=== PATIENT | female | born 1965 | race African-American/Black ===

== ENCOUNTER 2016-08-15 18:03 | Emergency (ER) | payer OTHER ==
[2016-08-15] MEDS ORDERED: Ibuprofen TAB* 800 MG PO ONE (18:39)
[2016-08-15 20:05] LABS: Hematocrit 43 % (35-47); Hemoglobin 14.3 g/dl (12.0-16.0); Mean Corpuscular HGB Conc 33 g/dl (31-36); Mean Corpuscular Hemoglobin 31 pg (27-31); Mean Corpuscular Volume 92 fL (80-97); Mean Platelet Volume 10 um3 (7.4-10.4); Red Blood Count 4.69 10^6/ul (4.0-5.4); Red Cell Distribution Width 13 % (10.5-15); White Blood Count 6.6 10^3/ul (3.5-10.8)
[2016-08-15 20:09] LABS: BUN/Creatinine Ratio 15.1 (8-20); EGFR African American 81.4 (>60); EGFR Non-African American 63.3 (>60); Globulin 3.3 g/dL (2-4); Potassium 3.5 mmol/L (3.5-5.0); Total Bilirubin 0.3 mg/dL (0.2-1.0); Total Protein 7.3 g/dL (6.4-8.9)
[2016-08-15 20:54] VITALS: BP 146/88
--- NOTE | 2016-08-15 21:08 | ED ---
Magnus Up Adam, scribed for Mary Sotelo MD on 08/15/16 at 1836 . Lower Extremity - HPI Summary HPI Summary: Pt is a 51 year old female presenting with a painful contusion on her RLE. She states that she developed a painful "knot/bump" under her skin on her right lower leg last night. The skin is no longer elevated but the pt states that the pain increased dramatically today, waking her up from sleep. There is a circular contusion at the site of the pain. Pt states that she commonly has bruising on her legs. She is not on ASA or any other blood-thinners. - History of Current Complaint Chief Complaint: EDExtremityLower Stated Complaint: SWELLING AND BRUISING AROUND VEIN Time Seen by Provider: 08/15/16 18:21 Hx Obtained From: Patient Mechanism Of Injury: Unknown Onset of Pain: Prior to Arrival Onset/Duration: Still Present Severity Initially: Mild Severity Currently: Moderate Pain Intensity: 5 Pain Scale Used: 0-10 Numeric Timing: Constant Location: Is Discrete @ - Right leg Associated Signs And Symptoms: Positive: Swelling, Bruising Aggravating Factor(s): Nothing Alleviating Factor(s): Nothing Able to Bear Weight: Yes - Allergies/Home Medications Allergies/Adverse Reactions: Allergies Allergy/AdvReac Type Severity Reaction Status Date / Time Clarithromycin [From Biaxin] Allergy Intermediate Rash Verified 08/15/16 18:11 PMH/Surg Hx/FS Hx/Imm Hx Endocrine/Hematology History: Reports: Other Endocrine/Hematological Disorders - Hx Low potassium Denies: Hx Diabetes Cardiovascular History: Reports: Hx Hypertension Denies: Hx Pacemaker/ICD Respiratory History: Reports: Hx Asthma GI History: Reports: Hx Gastroesophageal Reflux Disease, Other GI Disorders - Hemorrhoids History: Reports: Other Problems/Disorders - Hx UTI Denies: Hx Renal Disease Musculoskeletal History: Reports: Other Musculoskeletal History - herniated disc in lower back & in neck Sensory History: Denies: Hx Hearing Aid Psychiatric History: Denies: Hx Panic Disorder - Surgical History Surgery Procedure, Year, and Place: HYSTERECTOMY, CSECTIONS - Immunization History Date of Tetanus Vaccine: UTD Date of Influenza Vaccine: 2013 Infectious Disease History: No Infectious Disease History: Reports: Hx of Known/Suspected MRSA Denies: Traveled Outside the [place] in Last 30 Days - Family History Known Family History: Positive: Cardiac Disease, Hypertension, Diabetes - Social History Occupation: Employed Full-time Lives: With Family - Children Alcohol Use: None Hx Substance Use: No Substance Use Type: Reports: None Hx Tobacco Use: Yes Smoking Status (MU): Former Smoker Review of Systems Negative: Fever Positive: Myalgia - Right leg Positive: Bruising - Right leg All Other Systems Reviewed And Are Negative: Yes Physical Exam Triage Information Reviewed: Yes Vital Signs On Initial Exam: Initial Vitals Temp Pulse Resp BP Pulse Ox 98.7 F 81 16 145/93 100 08/15/16 18:11 08/15/16 18:11 08/15/16 18:11 08/15/16 18:11 08/15/16 18:11 Vital Signs Reviewed: Yes Appearance: Positive: Well-Appearing, No Pain Distress Skin: Positive: Warm, Skin Color Reflects Adequate Perfusion, Dry, Other - RLE contusion Eyes: Positive: EOMI, VENU ENT: Positive: Pharynx normal, TMs normal Neck: Positive: Supple, Nontender Respiratory/Lung Sounds: Positive: Clear to Auscultation, Breath Sounds Present. Negative: Rales, Rhonchi, Wheezes Cardiovascular: Positive: RRR. Negative: Murmur, Rub Abdomen Description: Positive: Nontender, Soft. Negative: Distended, Guarding Bowel Sounds: Positive: Present Musculoskeletal: Positive: Strength/ROM Intact. Negative: Edema Left, Edema Right Neurological: Positive: Sensory/Motor Intact, Alert, Oriented to Person Place, Time, CN Intact II-III Psychiatric: Positive: Affect/Mood Appropriate Diagnostics - Vital Signs Vital Signs Temp Pulse Resp BP Pulse Ox 08/15/16 18:11 98.7 F 81 16 145/93 100 - Laboratory Lab Results: Lab Results 08/15/16 08/15/16 Range/Units 19:40 19:40 WBC 6.6 (3.5-10.8) 10^3/ul RBC 4.69 (4.0-5.4) 10^6/ul Hgb 14.3 (12.0-16.0) g/dl Hct 43 (35-47) % MCV 92 (80-97) fL MCH 31 (27-31) pg MCHC 33 (31-36) g/dl RDW 13 (10.5-15) % Plt Count 226 (150-450) 10^3/ul MPV 10 (7.4-10.4) um3 Neut % (Auto) 55.5 (38-83) % Lymph % (Auto) 33.6 (25-47) % [place] % (Auto) 6.2 (1-9) % Eos % (Auto) 3.5 (0-6) % Baso % (Auto) 1.2 (0-2) % Absolute Neuts (auto) 3.7 (1.5-7.7) 10^3/ul Absolute Lymphs (auto) 2.2 (1.0-4.8) 10^3/ul Absolute Monos (auto) 0.4 (0-0.8) 10^3/ul Absolute Eos (auto) 0.2 (0-0.6) 10^3/ul Absolute Basos (auto) 0.1 (0-0.2) 10^3/ul Absolute Nucleated RBC 0.04 10^3/ul Nucleated RBC % 0.6 Sodium 137 (133-145) mmol/L Potassium 3.5 (3.5-5.0) mmol/L Chloride 102 (101-111) mmol/L Carbon Dioxide 33 H (22-32) mmol/L Anion Gap 2 (2-11) mmol/L BUN 14 (6-24) mg/dL Creatinine 0.93 (0.51-0.95) mg/dL Est GFR ( Amer) 81.4 (>60) Est GFR (Non-Af Amer) 63.3 (>60) BUN/Creatinine Ratio 15.1 (8-20) Glucose 84 (70-100) mg/dL Calcium 10.0 (8.6-10.3) mg/dL Total Bilirubin 0.30 (0.2-1.0) mg/dL AST 17 (13-39) U/L ALT 8 (7-52) U/L Alkaline Phosphatase 66 (34-104) U/L Total Protein 7.3 (6.4-8.9) g/dL Albumin 4.0 (3.2-5.2) g/dL Globulin 3.3 (2-4) g/dL Albumin/Globulin Ratio 1.2 (1-3) Result Diagrams: 08/15/16 19:40 08/15/16 19:40 Lab Statement: Any lab studies that have been ordered have been reviewed, and results considered in the medical decision making process. Lower Extremity Course/Dx - Diagnoses Provider Diagnoses: Contusion Discharge - Discharge Plan Condition: Stable Disposition: HOME Patient Education Materials: Contusion in Adults (ED) Referrals: Kostas Baeza MD [Primary Care Provider] - Additional Instructions: Follow up with Dr. Baeza. The documentation as recorded by the jaidenibMagnus azul Adam accurately reflects the service I personally performed and the decisions made by me, Mary Sotelo MD.
== END 2016-08-15 20:41 | disposition home or self-care (01) ==
LOC: ED 18:03
DX: S80.11XA Contusion of right lower leg, initial encounter (principal); M79.604 Pain in right leg; Z87.891 Personal history of nicotine dependence; X58.XXXA Exposure to other specified factors, initial encounter; Y93.9 Activity, unspecified; Y92.9 Unspecified place or not applicable; Y99.9 Unspecified external cause status
CPT/HCPCS: 36415; 80053; 85025; 99282; A9270-GY

== ENCOUNTER 2016-08-28 09:07 | Emergency (ER) | payer OTHER ==
--- NOTE | 2016-08-28 10:04 | RAD ---
Indication: Chest pain. Single frontal view of the chest performed at 0950 hours was reviewed. Comparison is made with previous exam dated July 30, 2015. No mediastinal shift is noted. Heart is of normal size and configuration. Lung bronson appear clear. IMPRESSION: NO ACTIVE CARDIOPULMONARY DISEASE IS NOTED.
[2016-08-28 10:11] LABS: Hematocrit 41 % (35-47); Hemoglobin 13.5 g/dl (12.0-16.0); Mean Corpuscular HGB Conc 33 g/dl (31-36); Mean Corpuscular Hemoglobin 30 pg (27-31); Mean Corpuscular Volume 91 fL (80-97); Mean Platelet Volume 9 um3 (7.4-10.4); Red Blood Count 4.43 10^6/ul (4.0-5.4); Red Cell Distribution Width 13 % (10.5-15); White Blood Count 5.9 10^3/ul (3.5-10.8)
[2016-08-28 10:25] LABS: Albumin 3.8 g/dL (3.2-5.2); BUN/Creatinine Ratio 11.4 (8-20); Calcium 9.5 mg/dL (8.6-10.3); EGFR African American 86.8 (>60); EGFR Non-African American 67.5 (>60); Globulin 3.2 g/dL (2-4); Magnesium 1.9 mg/dL (1.9-2.7); Potassium 3.6 mmol/L (3.5-5.0); Total Bilirubin 0.5 mg/dL (0.2-1.0)
--- NOTE | 2016-08-28 10:47 | ED ---
HPI Chest Pain - HPI Summary HPI Summary: Patient presents after she had a moment of sharp pain in her left chest. The pain felt like a pin being inserted in her chest. It did not begin with exertion nor did it improve with rest. It is made worse by a deep breath. The pain does not radiate, she did not feel nauseous or sweaty. She did not get lightheaded or have vision changes. She recently got over an URI but has not had fever, chills, N/V/D. She has a history of muscle cramps and wonders if this is a cramp. - History of Current Complaint Chief Complaint: EDGeneral Time Seen by Provider: 08/28/16 09:14 Hx Obtained From: Patient Onset/Duration: Started Hours Ago Timing: Intermittent, Lasting Seconds Initial Severity: Moderate Current Severity: None Pain Intensity: 5 Chest Pain Location: Left Anterior Chest Pain Radiates: No Character: Other: - felt like a pin in her chest. Alleviating Factor(s): Spontaneous Resolution Associated Signs and Symptoms: Positive: Chest Pain - Allergy/Home Medications Allergies/Adverse Reactions: Allergies Allergy/AdvReac Type Severity Reaction Status Date / Time Clarithromycin [From Biaxin] Allergy Intermediate Rash Verified 08/15/16 18:11 PMH/Surg Hx/FS Hx/Imm Hx Endocrine/Hematology History: Reports: Other Endocrine/Hematological Disorders - Hx Low potassium Denies: Hx Diabetes Cardiovascular History: Reports: Hx Hypertension Denies: Hx Pacemaker/ICD Respiratory History: Reports: Hx Asthma GI History: Reports: Hx Gastroesophageal Reflux Disease, Other GI Disorders - Hemorrhoids History: Reports: Other Problems/Disorders - Hx UTI Denies: Hx Renal Disease Musculoskeletal History: Reports: Other Musculoskeletal History - herniated disc in lower back & in neck Sensory History: Denies: Hx Hearing Aid Psychiatric History: Denies: Hx Panic Disorder - Surgical History Surgery Procedure, Year, and Place: HYSTERECTOMY, CSECTIONS - Immunization History Date of Tetanus Vaccine: UTD Date of Influenza Vaccine: 2013 Infectious Disease History: Yes Infectious Disease History: Reports: Hx of Known/Suspected MRSA Denies: Traveled Outside the [place] in Last 30 Days - Family History Known Family History: Positive: Unknown, Cardiac Disease, Hypertension, Diabetes - Social History Occupation: Employed Part-time Lives: With Family Alcohol Use: None Hx Substance Use: No Substance Use Type: Reports: None Hx Tobacco Use: Yes Smoking Status (MU): Former Smoker Review of Systems Negative: Fever, Skin Diaphoresis Positive: Chest Pain - resolved Negative: Shortness Of Breath Negative: Vomiting, Nausea Negative: Myalgia Negative: Anxious All Other Systems Reviewed And Are Negative: Yes Physical Exam Triage Information Reviewed: Yes Vital Signs On Initial Exam: Initial Vitals Temp Pulse Resp BP Pulse Ox 98.1 F 80 15 134/89 100 08/28/16 09:10 08/28/16 09:10 08/28/16 09:10 08/28/16 09:10 08/28/16 09:10 Vital Signs Reviewed: Yes Appearance: Positive: Well-Appearing, No Pain Distress, Obese Skin: Positive: Warm, Skin Color Reflects Adequate Perfusion, Dry, Soft Head/Face: Positive: Normal Head/Face Inspection Eyes: Positive: EOMI, VENU, Conjunctiva Clear ENT: Positive: Hearing grossly normal Neck: Positive: Supple, Nontender, No Lymphadenopathy Respiratory/Lung Sounds: Positive: Clear to Auscultation, Breath Sounds Present Cardiovascular: Positive: RRR Abdomen Description: Positive: Nontender, Soft. Negative: CVA Tenderness (R), CVA Tenderness (L), Distended, Guarding Bowel Sounds: Positive: Present Musculoskeletal: Negative: Pain @ - no pain with chest palpation Neurological: Positive: Sensory/Motor Intact, Alert, Oriented to Person Place, Time, Normal Gait, Abnormal Gait Psychiatric: Positive: Affect/Mood Appropriate AVPU Assessment: Alert - [place] Coma Scale Coma Scale Total: 15 Diagnostics - Vital Signs Vital Signs Temp Pulse Resp BP Pulse Ox 08/28/16 10:00 65 12 133/95 100 08/28/16 09:33 71 13 98 08/28/16 09:32 141/92 08/28/16 09:10 98.1 F 80 15 134/89 100 - Laboratory Lab Results: Lab Results 08/28/16 08/28/16 08/28/16 Range/Units 09:55 09:55 09:55 WBC 5.9 (3.5-10.8) 10^3/ul RBC 4.43 (4.0-5.4) 10^6/ul Hgb 13.5 (12.0-16.0) g/dl Hct 41 (35-47) % MCV 91 (80-97) fL MCH 30 (27-31) pg MCHC 33 (31-36) g/dl RDW 13 (10.5-15) % Plt Count 238 (150-450) 10^3/ul MPV 9 (7.4-10.4) um3 Neut % (Auto) 57.2 (38-83) % Lymph % (Auto) 32.6 (25-47) % [place] % (Auto) 5.6 (1-9) % Eos % (Auto) 3.4 (0-6) % Baso % (Auto) 1.2 (0-2) % Absolute Neuts (auto) 3.4 (1.5-7.7) 10^3/ul Absolute Lymphs (auto) 1.9 (1.0-4.8) 10^3/ul Absolute Monos (auto) 0.3 (0-0.8) 10^3/ul Absolute Eos (auto) 0.2 (0-0.6) 10^3/ul Absolute Basos (auto) 0.1 (0-0.2) 10^3/ul Absolute Nucleated RBC 0.01 10^3/ul Nucleated RBC % 0.1 Sodium 137 (133-145) mmol/L Potassium 3.6 (3.5-5.0) mmol/L Chloride 103 (101-111) mmol/L Carbon Dioxide 30 (22-32) mmol/L Anion Gap 4 (2-11) mmol/L BUN 10 (6-24) mg/dL Creatinine 0.88 (0.51-0.95) mg/dL Est GFR ( Amer) 86.8 (>60) Est GFR (Non-Af Amer) 67.5 (>60) BUN/Creatinine Ratio 11.4 (8-20) Glucose 98 (70-100) mg/dL Lactic Acid 1.1 (0.5-2.0) mmol/L Calcium 9.5 (8.6-10.3) mg/dL Magnesium 1.9 (1.9-2.7) mg/dL Total Bilirubin 0.50 (0.2-1.0) mg/dL AST 12 L (13-39) U/L ALT 6 L (7-52) U/L Alkaline Phosphatase 61 (34-104) U/L Troponin I 0.00 (<0.04) ng/mL Total Protein 7.0 (6.4-8.9) g/dL Albumin 3.8 (3.2-5.2) g/dL Globulin 3.2 (2-4) g/dL Albumin/Globulin Ratio 1.2 (1-3) Result Diagrams: 08/28/16 09:55 08/28/16 09:55 Lab Statement: Any lab studies that have been ordered have been reviewed, and results considered in the medical decision making process. - EKG No standard instances Cardiac Rate: NL EKG Rhythm: Sinus Rhythm ST Segment: Normal Ectopy: None Chest Pain Course/Dx - Chest Pain Differential Diagnosis/HQI/PQRI: Acute GA, Angina, Aortic Aneurysm, Chest Wall, GI Disease, Lower Respiratory Infection, Pulmonary Edema, Pulmonary Embolism - Diagnoses Provider Diagnoses: Chest discomfort Discharge - Discharge Plan Condition: Stable Disposition: HOME Patient Education Materials: Noncardiac Chest Pain (ED) Referrals: Kostas Baeza MD [Primary Care Provider] - Additional Instructions: Please call your primary care provider for evaluation in 1-2 days. Return to the emergency department if symptoms worsen.
[2016-08-28 11:54] VITALS: BP 152/121
== END 2016-08-28 11:53 | disposition home or self-care (01) ==
LOC: ED 09:07
DX: R07.9 Chest pain, unspecified (principal); I10 Essential (primary) hypertension; J45.909 Unspecified asthma, uncomplicated; K21.9 Gastro-esophageal reflux disease without esophagitis; Z87.891 Personal history of nicotine dependence
CPT/HCPCS: 36415; 71010; 80053; 83605; 83735; 84484; 85025; 85379; 93005; 99283

== ENCOUNTER 2016-09-16 20:42 | Emergency (ER) | payer OTHER ==
--- NOTE | 2016-09-16 22:22 | ED ---
Skin Complaint - HPI Summary HPI Summary: 51F presents with lesion to her sacrum for a week. She states she believes that is is an ingrown hair. She states the area is very painful but she has not taken anything for her pain. She denies any drainage from the area. She denies any fevers or spreading redness. She denies any history of pilondial cyst. - History of Current Complaint Chief Complaint: EDGeneral Time Seen by Provider: 09/16/16 22:07 Stated Complaint: TAILBONE PAIN Pain Intensity: 10 - Allergy/Home Medications Allergies/Adverse Reactions: Allergies Allergy/AdvReac Type Severity Reaction Status Date / Time Clarithromycin [From Biaxin] Allergy Intermediate Rash Verified 08/15/16 18:11 PMH/Surg Hx/FS Hx/Imm Hx Endocrine/Hematology History: Reports: Other Endocrine/Hematological Disorders - Hx Low potassium Denies: Hx Diabetes Cardiovascular History: Reports: Hx Hypertension Denies: Hx Pacemaker/ICD Respiratory History: Reports: Hx Asthma GI History: Reports: Hx Gastroesophageal Reflux Disease, Other GI Disorders - Hemorrhoids History: Reports: Other Problems/Disorders - Hx UTI Denies: Hx Renal Disease Musculoskeletal History: Reports: Other Musculoskeletal History - herniated disc in lower back & in neck Sensory History: Denies: Hx Hearing Aid Psychiatric History: Denies: Hx Panic Disorder - Surgical History Surgery Procedure, Year, and Place: HYSTERECTOMY, CSECTIONS - Immunization History Date of Tetanus Vaccine: UTD Date of Influenza Vaccine: 2013 Infectious Disease History: No Infectious Disease History: Reports: Hx of Known/Suspected MRSA Denies: Traveled Outside the [place] in Last 30 Days - Family History Known Family History: Positive: Unknown, Cardiac Disease, Hypertension, Diabetes - Social History Alcohol Use: None Hx Substance Use: No Substance Use Type: Reports: None Hx Tobacco Use: Yes Smoking Status (MU): Former Smoker Review of Systems Negative: Fever Negative: Chest Pain Negative: Shortness Of Breath Positive: Other - pea size lesion on buttock All Other Systems Reviewed And Are Negative: Yes Physical Exam Triage Information Reviewed: Yes Vital Signs On Initial Exam: Initial Vitals Temp Pulse Resp BP Pulse Ox 97.6 F 94 16 134/90 99 09/16/16 20:44 09/16/16 20:44 09/16/16 20:44 09/16/16 20:44 09/16/16 20:44 Vital Signs Reviewed: Yes Appearance: Positive: Well-Appearing Skin: Positive: Warm, Dry, Other - small folliculitis of left buttock with no surrounding erythema noted, tender to folliculitis Head/Face: Positive: Normal Head/Face Inspection Eyes: Positive: Normal, Conjunctiva Clear Respiratory/Lung Sounds: Positive: Clear to Auscultation, Breath Sounds Present Cardiovascular: Positive: Normal, RRR - Roberto Coma Scale Coma Scale Total: 15 Diagnostics - Vital Signs Vital Signs Temp Pulse Resp BP Pulse Ox 09/16/16 20:44 97.6 F 94 16 134/90 99 - Laboratory Lab Statement: Any lab studies that have been ordered have been reviewed, and results considered in the medical decision making process. Course/Dx - Course Course Of Treatment: 51F presents with lesion of buttock for a week. denies history of pilondial cyst. states area is tender but has not taken anything for pain. denies any fever or spreading redness. on exam has one infected follicle with no surrounding erythema. told to use warm compresses on area and that does not need antibiotic as no surrounding cellulitis present. told to use doughnut pillow to avoid pressure on area and to take tyenlol for pain. patient understands and agrees with plan - Differential Diagnoses - Skin Complaint Differential Diagnoses: Abscess, Cellulitis, Other - folliculitis - Diagnoses Provider Diagnoses: Folliculitis Discharge - Discharge Plan Condition: Good Disposition: HOME Patient Education Materials: Folliculitis (ED) Referrals: Kostas Baeza MD [Primary Care Provider] - Additional Instructions: Use doughnut pillow to avoid pressure on area Place warm compresses on area Use Tylenol or ibuprofen every 6 hours for pain Return to ED if develop fevers, spreading redness, or any new or worsening symptoms
[2016-09-16 22:28] VITALS: BP 128/90
== END 2016-09-16 22:27 | disposition home or self-care (01) ==
LOC: ED 20:42
DX: L73.9 Follicular disorder, unspecified (principal); Z87.891 Personal history of nicotine dependence; Z88.1 Allergy status to other antibiotic agents
CPT/HCPCS: 99281

== ENCOUNTER 2016-09-18 20:23 | Emergency (ER) | payer OTHER ==
[2016-09-18] MEDS ORDERED: traMADol TAB* 50 MG PO ONE (22:52)
[2016-09-18] MEDS ORDERED: Cephalexin CAP* 500 MG PO ONE (22:52)
[2016-09-18 23:17] VITALS: BP 129/87
== END 2016-09-18 23:16 | disposition home or self-care (01) ==
LOC: ED 20:23
DX: K61.1 Rectal abscess (principal)
CPT/HCPCS: 99282; A9270-GY

== ENCOUNTER 2016-10-14 23:51 | Emergency (ER) | payer OTHER ==
[2016-10-15] MEDS ORDERED: NS 0.9% 1000 ML* 1,000 ML IV ONE (03:01)
[2016-10-15] MEDS ORDERED: Morphine INJ* 4 MG/ML 1 ML SYRINGE IV ONE (03:02)
[2016-10-15] MEDS ORDERED: Ondansetron INJ* 2 MG/ML VIAL IV ONE (03:03)
[2016-10-15 03:36] LABS: Hematocrit 41 % (35-47); Hemoglobin 13.6 g/dl (12.0-16.0); Mean Corpuscular HGB Conc 33 g/dl (31-36); Mean Corpuscular Hemoglobin 30 pg (27-31); Mean Corpuscular Volume 91 fL (80-97); Mean Platelet Volume 9 um3 (7.4-10.4); Red Blood Count 4.49 10^6/ul (4.0-5.4); Red Cell Distribution Width 14 % (10.5-15); White Blood Count 6.5 10^3/ul (3.5-10.8)
[2016-10-15 03:54] LABS: Albumin 3.8 g/dL (3.2-5.2); BUN/Creatinine Ratio 18.3 (8-20); Calcium 9.5 mg/dL (8.6-10.3); EGFR African American 94.1 (>60); EGFR Non-African American 73.2 (>60); Globulin 3.1 g/dL (2-4); Potassium 3.3 mmol/L (3.5-5.0); Total Bilirubin 0.5 mg/dL (0.2-1.0); Total Protein 6.9 g/dL (6.4-8.9)
[2016-10-15] MEDS ORDERED: Potassium Chlor TAB* 20 MEQ TAB.ER PO ONE (04:23)
[2016-10-15] MEDS ORDERED: Iohexol 300* (CONTRAST) 10 ML SDV IV ONE (04:45)
[2016-10-15 05:02] LABS: Urine Bilirubin Negative (Negative); Urine Glucose Negative (Negative); Urine Nitrite Negative (Negative)
--- NOTE | 2016-10-15 05:58 | ED ---
Magnus Up Adam, scribed for Jaime Howe on 10/15/16 at 0253 . Abdominal Pain/Female - HPI Summary HPI Summary: Pt is a 51 year old female presenting with LLQ abdominal pain. She states that she has been having the pain for 7 days and it has been growing worse. She has also been vomiting. She saw her PCP and is scheduled for a colonoscopy in 2 days but she came to the ED because she could no longer tolerate the pain. She denies fever, diarrhea, constipation, CP, SOB, and rash. She denies alcohol and tobacco use. EMR indicates that she is a former smoker. - History of Current Complaint Chief Complaint: EDAbdPain Stated Complaint: ABD PAIN Time Seen by Provider: 10/15/16 02:38 Hx Obtained From: Patient Onset/Duration: Gradual Onset, Lasting Days, Still Present Timing: Constant Severity Initially: Mild Severity Currently: Moderate Pain Intensity: 10 Pain Scale Used: 0-10 Numeric Location: Discrete At: LLQ Radiates: No Aggravating Factor(s): Nothing Alleviating Factor(s): Nothing Associated Signs and Symptoms: Positive: Vomiting. Negative: Fever, Chest Pain , Constipation, Diarrhea Allergies/Adverse Reactions: Allergies Allergy/AdvReac Type Severity Reaction Status Date / Time Clarithromycin [From Biaxin] Allergy Intermediate Rash Verified 08/15/16 18:11 PMH/Surg Hx/FS Hx/Imm Hx Endocrine/Hematology History: Reports: Other Endocrine/Hematological Disorders - Hx Low potassium Denies: Hx Diabetes Cardiovascular History: Reports: Hx Hypertension Denies: Hx Pacemaker/ICD Respiratory History: Reports: Hx Asthma GI History: Reports: Hx Gastroesophageal Reflux Disease, Other GI Disorders - Hemorrhoids History: Reports: Other Problems/Disorders - Hx UTI Denies: Hx Renal Disease Musculoskeletal History: Reports: Other Musculoskeletal History - herniated disc in lower back & in neck Sensory History: Denies: Hx Hearing Aid Psychiatric History: Denies: Hx Panic Disorder - Surgical History Surgery Procedure, Year, and Place: HYSTERECTOMY, CSECTIONS - Immunization History Date of Tetanus Vaccine: UTD Date of Influenza Vaccine: 2013 Infectious Disease History: No Infectious Disease History: Reports: Hx of Known/Suspected MRSA Denies: Traveled Outside the [place] in Last 30 Days - Family History Known Family History: Positive: Cardiac Disease, Hypertension, Diabetes - Social History Occupation: Employed Full-time Lives: Alone Alcohol Use: None Hx Substance Use: No Substance Use Type: Reports: None Hx Tobacco Use: Yes Smoking Status (MU): Former Smoker Review of Systems Negative: Fever Negative: Chest Pain Negative: Shortness Of Breath Positive: Abdominal Pain - LLQ, Vomiting. Negative: Diarrhea Negative: Rash All Other Systems Reviewed And Are Negative: Yes Physical Exam Triage Information Reviewed: Yes Vital Signs On Initial Exam: Initial Vitals Temp Pulse Resp BP Pulse Ox 97.2 F 71 18 130/94 100 10/15/16 00:14 10/15/16 00:14 10/15/16 00:14 10/15/16 00:14 10/15/16 00:14 Vital Signs Reviewed: Yes Appearance: Positive: Well-Appearing, No Pain Distress Skin: Positive: Warm, Skin Color Reflects Adequate Perfusion, Dry Head/Face: Positive: Normal Head/Face Inspection Eyes: Positive: EOMI, VENU ENT: Positive: Normal ENT inspection Neck: Positive: Supple, Nontender Respiratory/Lung Sounds: Positive: Clear to Auscultation, Breath Sounds Present Cardiovascular: Positive: RRR, Pulses are Symmetrical in both Upper and Lower Extremities Abdomen Description: Positive: Other: - Tenderness in the LLQ Bowel Sounds: Positive: Present Musculoskeletal: Positive: Normal, Strength/ROM Intact - Roberto Coma Scale Coma Scale Total: 15 Diagnostics - Vital Signs Vital Signs Temp Pulse Resp BP Pulse Ox 10/15/16 02:30 97 F 74 16 132/87 100 10/15/16 01:27 96.4 F 73 18 132/87 100 10/15/16 00:14 97.2 F 71 18 130/94 100 - Laboratory Result Diagrams: 10/15/16 03:26 10/15/16 03:26 Lab Statement: Any lab studies that have been ordered have been reviewed, and results considered in the medical decision making process. - CT A/P CT Interpretation Completed By: Radiologist - IMPRESSION: NO INFLAMMATORY PROCESS IDENTIFIED IN THE ABDOMEN OR PELVIS. NO ABDOMINAL MASS, ADENOPATHY OR COLLECTION SEEN. NO EXPLANATION SEEN FOR THIS PATIENT'S ABDOMINAL PAIN. Abdominal Pain Fem Course/Dx - Diagnoses Provider Diagnoses: Nonspecific abdominal pain Discharge - Discharge Plan Condition: Stable Disposition: HOME Patient Education Materials: Abdominal Pain (ED) Referrals: Kostas Baeza MD [Primary Care Provider] - Elton Go MD [Medical Doctor] - Additional Instructions: Follow up with Dr. Go (Surgery). The documentation as recorded by the jaidenibMagnus azul Adam accurately reflects the service I personally performed and the decisions made by , Jaime Howe.
[2016-10-15 06:01] VITALS: BP 116/80
--- NOTE | 2016-10-15 10:17 | RAD ---
Indication: Diverticulitis. Contrast: Administered 100.0 ml of OMNIPAQUE 300 mgi/ml CT of the abdomen and pelvis was performed after IV contrast administered. No oral contrast was given which limits evaluation. Coronal and sagittal reconstructed images were obtained. The lung bases demonstrate no pleural fluid, nodules or masses. Heart is of normal size without evidence of pericardial effusion. Liver is normal in size. Low density lesions in the right lobe measuring 7 mm, left lobe measuring 13 mm, inferior right lobe measuring 10 mm are present. These likely represent cysts or hemangiomas. Several of these low density lesions were identified on the prior CT dated April 12, 2010. Other small low density lesions are noted in the caudate lobe which are unchanged from prior exams. The gallbladder demonstrates no calcified gallstones, pericholecystic fluid wall thickening. The common duct is not dilated. The pancreas demonstrates no mass or pancreatic duct dilatation. The spleen is normal in size. No adrenal lesions are noted. The kidneys demonstrate symmetric nephrograms without hydronephrosis or focal masses. No retroperitoneal lymphadenopathy is noted. No aneurysmal dilatation of the abdominal aorta is noted. Inferior vena cava is unremarkable. No abnormal dilatation of small bowel is noted. The bony structures demonstrates degenerative disc disease at L5-S1. A large Schmorl's node is identified at the inferior endplate of L5. CT of the pelvis demonstrates no retroperitoneal or pelvic lymphadenopathy. Patient appears to be status post hysterectomy. Structures resembling ovaries are noted in the pelvis. Correlation with clinical history is suggested. Stool is present throughout. IMPRESSION: LOW DENSITY LESIONS IN THE LIVER WERE PROBABLY PRESENT ON PRIOR EXAM OF APRIL 12, [address]??STRUCTURES RESEMBLING THE OVARIES ARE NOTED. THE PATIENT IS STATUS POST HYSTERECTOMY.??NO MASSES OR FLUID COLLECTIONS ARE NOTED.??
== END 2016-10-15 06:00 | disposition home or self-care (01) ==
LOC: ED 23:51
DX: R10.32 Left lower quadrant pain (principal); Z87.891 Personal history of nicotine dependence; K57.92 Diverticulitis of intestine, part unspecified, without perforation or abscess without bleeding
CPT/HCPCS: 36415; 74177; 80053; 81003; 83690; 84702; 85025; 85610; 85730; 96360; 96374; 96375; 99283; J2270; J2405; Q9967

== ENCOUNTER 2016-11-29 18:05 | Emergency (ER) | payer OTHER ==
[2016-11-29] MEDS ORDERED: Ketorolac INJ* 60 MG/2 ML VIAL IM ONE (18:51)
[2016-11-29] MEDS ORDERED: Cyclobenzaprine TAB* 10 MG PO ONE (18:51)
[2016-11-29] MEDS ORDERED: oxyCODONE/Acetamin 5/325 MG* TAB PO ONE (18:51)
--- NOTE | 2016-11-29 18:52 | ED ---
Back Pain - HPI Summary HPI Summary: 51F presents with back pain today. She has pain across her entire lower back. She denies any injury to the area. She states she felt a pulling sensation. She denies any pain into her legs. She denies any numbness or tingling. She denies any loss of bowel or bladder or saddle anaesthesia. She took some ibuprofen for her pain. - History of Current Complaint Chief Complaint: EDBackInjuryPain Stated Complaint: BACK PAIN Time Seen by Provider: 11/29/16 18:26 Pain Intensity: 10 - Allergies/Home Medications Allergies/Adverse Reactions: Allergies Allergy/AdvReac Type Severity Reaction Status Date / Time Clarithromycin [From Biaxin] Allergy Intermediate Rash Verified 08/15/16 18:11 PMH/Surg Hx/FS Hx/Imm Hx Endocrine/Hematology History: Reports: Other Endocrine/Hematological Disorders - Hx Low potassium Denies: Hx Diabetes Cardiovascular History: Reports: Hx Hypertension Denies: Hx Pacemaker/ICD Respiratory History: Reports: Hx Asthma GI History: Reports: Hx Gastroesophageal Reflux Disease, Other GI Disorders - Hemorrhoids History: Reports: Other Problems/Disorders - Hx UTI Denies: Hx Dialysis, Hx Renal Disease Musculoskeletal History: Reports: Other Musculoskeletal History - herniated disc in lower back & in neck Sensory History: Denies: Hx Hearing Aid Psychiatric History: Denies: Hx Panic Disorder - Surgical History Surgery Procedure, Year, and Place: HYSTERECTOMY, CSECTIONS - Immunization History Date of Tetanus Vaccine: UTD Date of Influenza Vaccine: 2013 Infectious Disease History: No Infectious Disease History: Reports: Hx of Known/Suspected MRSA Denies: Traveled Outside the [place] in Last 30 Days - Family History Known Family History: Positive: Unknown, Cardiac Disease, Hypertension, Diabetes - Social History Alcohol Use: None Hx Substance Use: No Substance Use Type: Reports: None Hx Tobacco Use: Yes Smoking Status (MU): Former Smoker Review of Systems Negative: Fever Negative: Chest Pain Negative: Shortness Of Breath Positive: Myalgia - back pain All Other Systems Reviewed And Are Negative: Yes Physical Exam Triage Information Reviewed: Yes Vital Signs On Initial Exam: Initial Vitals Temp Pulse Resp BP Pulse Ox 97.7 F 81 15 136/81 100 11/29/16 18:07 11/29/16 18:07 11/29/16 18:07 11/29/16 18:07 06/07/17 18:07 Vital Signs Reviewed: Yes Appearance: Positive: Pain Distress Skin: Positive: Warm, Dry Head/Face: Positive: Normal Head/Face Inspection Eyes: Positive: Normal, Conjunctiva Clear Respiratory/Lung Sounds: Positive: Clear to Auscultation, Breath Sounds Present Cardiovascular: Positive: Normal, RRR Musculoskeletal: Positive: Limited @ - back due to pain, Other - neg SLR, tender across lower back, good pulses Diagnostics - Vital Signs Vital Signs Temp Pulse Resp BP Pulse Ox 11/29/16 18:07 97.7 F 75 16 136/81 100 - Laboratory Lab Statement: Any lab studies that have been ordered have been reviewed, and results considered in the medical decision making process. - Radiology spine Xray Interpretation: Positive (See Comments) - IMPRESSION: MODERATE DEGENERATIVE DISC DISEASE AT THE L5-S1 LEVEL DEMONSTRATING INTERVAL PROGRESSION. Radiology Interpretation Completed By: Radiologist Back Pain Course/Dx - Course Course Of Treatment: 51F presents with back pain today. denies any injury. no numbness or tingling. neg SLR. xray showed degerenative changes. discussed will treat with flexeril and prednisone. patient understands and agrees with plan - Diagnoses Differential Diagnosis/HQI/PQRI: Positive: Herniated Disc, Strain, Sprain Provider Diagnoses: Back pain Discharge - Discharge Plan Condition: Good Disposition: HOME Prescriptions: Cyclobenzaprine TAB* [Flexeril 10 MG TAB*] 10 mg PO TID PRN #9 tab PRN Reason: Pain Methylprednisolone [Medrol Dosepak 4 MG*] 4 mg PO .SEE NEELAM INSTRUCTION #1 packet Patient Education Materials: Back Pain (ED) Referrals: Kostas Baeza MD [Primary Care Provider] - Additional Instructions: Follow directions on package for Medrol pack Take muscle relaxers three times a day for 3 days, starting tomorrow Use ibuprofen or Tylenol for pain every 6 hours ice/heat area, move as much as possible Follow up with primary within 7 days Return to ED if unable to ambulate or develop any new or worsening symptoms
--- NOTE | 2016-11-29 19:26 | RAD ---
INDICATION: Back pain. COMPARISON: Comparison is made with a prior x-ray study of the lumbar spine from March 13, 2006. TECHNIQUE: 5 views of the lumbar spine were obtained including lateral, oblique, AP and a coned-down lateral view of the lumbar sacral junction. FINDINGS: The vertebra are in normal alignment. No fracture is seen. There is moderate degenerative disc disease at the L5-S1 level which has progressed from the prior study. IMPRESSION: MODERATE DEGENERATIVE DISC DISEASE AT THE L5-S1 LEVEL DEMONSTRATING INTERVAL PROGRESSION.
[2016-11-29 19:50] VITALS: BP 128/74
== END 2016-11-29 19:49 | disposition home or self-care (01) ==
LOC: ED 18:05
DX: M51.37 Other intervertebral disc degeneration, lumbosacral region (principal); M54.5 Low back pain; Z87.891 Personal history of nicotine dependence
CPT/HCPCS: 72110; 96372; 99282; A9270-GY; J1885

== ENCOUNTER 2016-12-09 22:50 | Emergency (ER) | payer OTHER ==
[2016-12-09] MEDS ORDERED: Aspirin Low Dose CHEW TAB* 81 MG PO ONE (23:44)
[2016-12-10 00:45] LABS: Hematocrit 41 % (35-47); Hemoglobin 13.7 g/dl (12.0-16.0); Mean Corpuscular HGB Conc 33 g/dl (31-36); Mean Corpuscular Hemoglobin 31 pg (27-31); Mean Corpuscular Volume 91 fL (80-97); Mean Platelet Volume 9 um3 (7.4-10.4); Red Blood Count 4.51 10^6/ul (4.0-5.4); Red Cell Distribution Width 14 % (10.5-15); White Blood Count 7.2 10^3/ul (3.5-10.8)
[2016-12-10 01:00] LABS: Albumin 3.9 g/dL (3.2-5.2); BUN/Creatinine Ratio 14.6 (8-20); Calcium 9.5 mg/dL (8.6-10.3); EGFR African American 85.7 (>60); EGFR Non-African American 66.6 (>60); Globulin 3.2 g/dL (2-4); Magnesium 1.9 mg/dL (1.9-2.7); Potassium 3.3 mmol/L (3.5-5.0); Total Bilirubin 0.5 mg/dL (0.2-1.0); Total Protein 7.1 g/dL (6.4-8.9)
[2016-12-10] MEDS ORDERED: Potassium Chlor TAB* 20 MEQ TAB.ER PO ONE (01:11)
--- NOTE | 2016-12-10 01:16 | ED ---
Marcial Up Aidan, scribed for Mary Sotelo MD on 12/10/16 at 0042 . HPI Chest Pain - HPI Summary HPI Summary: 51 y/o female presents to the ED with a complaint of acute, mild (3/10) episodes of muscle spasms. At 2300 tonight, she had a muscle spasm close to the chest that occurred after taking a deep breath. Since then, she has had 2 more spasms near the chest. Hx of frequent muscle spasms, however, she usually gets them in the lower back. No Hx or FHx of PE or DVT. She does have FHx of CVA before the age of 54. Positive Hx of HTN. - History of Current Complaint Chief Complaint: EDChestWallPain Time Seen by Provider: 12/09/16 23:44 Hx Obtained From: Patient Onset/Duration: Started Hours Ago - roughly 1 hour ago, Resolved Time of Onset: 23:00 Timing: Intermittent, Lasting Minutes Initial Severity: Mild Current Severity: Mild Pain Intensity: 3 Pain Scale Used: 0-10 Numeric Chest Pain Location: Discrete at: - left chest, however, she gets these spasms in other places too Chest Pain Radiates: No Chest Pain Radiates To:: Other - does not radiate Character: Other: - muscle spasm feeling Aggravating Factor(s): Other: - unknown Alleviating Factor(s): Other: - unknown Associated Signs and Symptoms: Positive: Negative Related History: Similar Episode/Dx as: - Hx of chronic muscle spasms that usually occur in the lower back - Risk Factors TAD Risk Factors: Hypertension AMI/ACS Risk Factors: Hypertension - Allergy/Home Medications Allergies/Adverse Reactions: Allergies Allergy/AdvReac Type Severity Reaction Status Date / Time Clarithromycin [From Biaxin] Allergy Intermediate Rash Verified 12/09/16 23:48 PMH/Surg Hx/FS Hx/Imm Hx Endocrine/Hematology History: Reports: Other Endocrine/Hematological Disorders - Hx Low potassium Denies: Hx Diabetes Cardiovascular History: Reports: Hx Hypertension Denies: Hx Pacemaker/ICD Respiratory History: Reports: Hx Asthma GI History: Reports: Hx Gastroesophageal Reflux Disease, Other GI Disorders - Hemorrhoids History: Reports: Other Problems/Disorders - Hx UTI Denies: Hx Dialysis, Hx Renal Disease Musculoskeletal History: Reports: Other Musculoskeletal History - herniated disc in lower back & in neck Sensory History: Denies: Hx Hearing Aid Psychiatric History: Denies: Hx Panic Disorder - Surgical History Surgery Procedure, Year, and Place: HYSTERECTOMY, CSECTIONS - Immunization History Date of Tetanus Vaccine: unk Date of Influenza Vaccine: unk Infectious Disease History: No Infectious Disease History: Reports: Hx of Known/Suspected MRSA Denies: Traveled Outside the [place] in Last 30 Days - Family History Known Family History: Positive: Cardiac Disease, Hypertension, Diabetes - Social History Occupation: Employed Full-time Lives: With Family Alcohol Use: Rare Hx Substance Use: No Substance Use Type: Reports: None Hx Tobacco Use: Yes Smoking Status (MU): Former Smoker Review of Systems Constitutional: Negative Eyes: Negative ENT: Negative Cardiovascular: Negative Respiratory: Negative Gastrointestinal: Negative Genitourinary: Negative Positive: Myalgia - muscle spasm in left chest. Negative: Arthralgia, Decreased ROM, Edema Skin: Negative Neurological: Negative Psychological: Normal All Other Systems Reviewed And Are Negative: Yes Physical Exam - Summary Physical Exam Summary: General: Well appearing, no pain distress Skin: Warm, Skin Color Reflects Adequate Perfusion, Dry Eyes: EOMI, VENU ENT: Pharynx normal, TMs normal Neck: Supple, nontender Respiratory: CTA, breath sounds present, no rhonchi, no wheezes, no rales Cardiovascular: RRR, no murmur, no rub, no gallop Abdomen: Soft, nontender, Non-distended, no guarding, no rebound Bowel: Present Musculoskeletal: DERICK, No edema Neuro: Sensory/motor intact, A&Ox3, CN intact 2-12 Psych: Affect/mood appropriate Triage Information Reviewed: Yes Vital Signs On Initial Exam: Initial Vitals Temp Pulse Resp BP Pulse Ox 98 F 82 20 147/95 100 12/09/16 22:51 12/09/16 22:51 12/09/16 22:51 12/09/16 22:51 12/09/16 22:51 Vital Signs Reviewed: Yes - Roberto Coma Scale Coma Scale Total: 15 Diagnostics - Vital Signs Vital Signs Temp Pulse Resp BP Pulse Ox 12/09/16 23:44 98.0 F 82 20 147/95 100 12/09/16 22:51 98 F 82 20 147/95 100 - Laboratory Lab Results: Lab Results 12/10/16 12/10/16 Range/Units 00:30 00:30 WBC 7.2 (3.5-10.8) 10^3/ul RBC 4.51 (4.0-5.4) 10^6/ul Hgb 13.7 (12.0-16.0) g/dl Hct 41 (35-47) % MCV 91 (80-97) fL MCH 31 (27-31) pg MCHC 33 (31-36) g/dl RDW 14 (10.5-15) % Plt Count 210 (150-450) 10^3/ul MPV 9 (7.4-10.4) um3 Neut % (Auto) 51.9 (38-83) % Lymph % (Auto) 33.5 (25-47) % [place] % (Auto) 9.6 H (1-9) % Eos % (Auto) 3.9 (0-6) % Baso % (Auto) 1.1 (0-2) % Absolute Neuts (auto) 3.7 (1.5-7.7) 10^3/ul Absolute Lymphs (auto) 2.4 (1.0-4.8) 10^3/ul Absolute Monos (auto) 0.7 (0-0.8) 10^3/ul Absolute Eos (auto) 0.3 (0-0.6) 10^3/ul Absolute Basos (auto) 0.1 (0-0.2) 10^3/ul Absolute Nucleated RBC 0 10^3/ul Nucleated RBC % 0.1 Sodium 138 (133-145) mmol/L Potassium 3.3 L (3.5-5.0) mmol/L Chloride 102 (101-111) mmol/L Carbon Dioxide 30 (22-32) mmol/L Anion Gap 6 (2-11) mmol/L BUN 13 (6-24) mg/dL Creatinine 0.89 (0.51-0.95) mg/dL Est GFR ( Amer) 85.7 (>60) Est GFR (Non-Af Amer) 66.6 (>60) BUN/Creatinine Ratio 14.6 (8-20) Glucose 81 (70-100) mg/dL Calcium 9.5 (8.6-10.3) mg/dL Magnesium 1.9 (1.9-2.7) mg/dL Total Bilirubin 0.50 (0.2-1.0) mg/dL AST 13 (13-39) U/L ALT 6 L (7-52) U/L Alkaline Phosphatase 67 (34-104) U/L Troponin I 0.00 (<0.04) ng/mL Total Protein 7.1 (6.4-8.9) g/dL Albumin 3.9 (3.2-5.2) g/dL Globulin 3.2 (2-4) g/dL Albumin/Globulin Ratio 1.2 (1-3) Result Diagrams: 12/10/16 00:30 12/10/16 00:30 Lab Statement: Any lab studies that have been ordered have been reviewed, and results considered in the medical decision making process. - Radiology No standard instances Xray Interpretation: No Acute Changes Radiology Interpretation Completed By: ED Physician - EKG EKG 0021 Cardiac Rate: NL - 74 BPM EKG Rhythm: Sinus Rhythm EKG Interpretation: NORMAL SINUS RHYTHM Chest Pain Course/Dx - Course Course Of Treatment: 51 yo female who describes frequent muscle spasms in different areas of her body with a muscle spasm that happened under left breast at 11pm tonight. She does have a family history of early cad, and htn, her ekg and trop are neg. the pain was short lasting and came twice and then went away. She did find that at the time she had a bit of a pleuritic component but she has no PE risk factors. It was discussed with pt that a heart attack could not be ruled out for 6 hours from onset of pain pt refused to stay, she does understand the risk of heart attack and feels she just wanted to get and ekg to make sure it looked ok since the spasm she had was close to the heart. - Diagnoses Provider Diagnoses: Chest pain Discharge - Discharge Plan Condition: Stable Disposition: HOME The documentation as recorded by the Marcial arenas Aidan accurately reflects the service I personally performed and the decisions made by me, Mary Sotelo MD.
[2016-12-10 01:37] VITALS: BP 131/81
--- NOTE | 2016-12-10 09:52 | RAD ---
INDICATION: Left-sided chest pain COMPARISON: Most recent comparison chest x-rays dated August 28, 2016 TECHNIQUE: Single AP portable view of the chest was obtained. FINDINGS: Image quality is compromised due to the relative inferiority of a portable chest x-ray. The heart and mediastinum exhibit normal size and contour. The lungs are grossly clear. There is no evidence of a large pleural effusion. Visualized bones are normal for the patient's age. IMPRESSION: No radiographic evidence for acute cardiopulmonary abnormality on this portable chest x-ray.
== END 2016-12-10 01:42 | disposition home or self-care (01) ==
LOC: ED 22:50
DX: R07.89 Other chest pain (principal); M62.838 Other muscle spasm; I10 Essential (primary) hypertension; J45.909 Unspecified asthma, uncomplicated; K21.9 Gastro-esophageal reflux disease without esophagitis; Z90.710 Acquired absence of both cervix and uterus; Z88.1 Allergy status to other antibiotic agents; Z87.891 Personal history of nicotine dependence
CPT/HCPCS: 36415; 71010; 80053; 83735; 84484; 85025; 93005; 99282; A9270-GY

== ENCOUNTER 2016-12-31 09:56 | Emergency (ER) | payer OTHER ==
[2016-12-31 11:50] VITALS: BP 126/74
--- NOTE | 2016-12-31 13:02 | ED ---
Upper Extremity Pain - HPI Summary HPI Summary: Patient presents with left arm pain x 1 day. 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 She holds the same position in the arms daily and notes to a similar issue in the right arm a few years ago. Ibuprofen without effect. 8/10 pain, constant and radiating. Denies other injuries. Hx of herniated disc. No trauma to the area. - History of Current Complaint Chief Complaint: EDExtremityUpper Stated Complaint: ARM NUMBNESS, BACK PAIN Time Seen by Provider: 12/31/16 11:33 Hx Obtained From: Patient Mechanism Of Injury: Unknown - overuse Timing: Lasting Days Severity Initially: Moderate Severity Currently: Moderate Pain Location: Shoulder, Forearm, Hand Character: Spasmodic, Stiffness Aggravating Factor(s): Lifting, Flexion, Internal/External Rotation Alleviating Factor(s): Nothing Associated Signs & Symptoms: Positive: Weakness, Numbness/Tingling Related History: Occupational Injury, Dominant Hand Right - Risk Factors Non-Orthopedic Risk Factor: Negative DVT Risk Factors: Negative Septic Arthritis Risk Factor: Negative Compartment Syndrome Risk Factors: Pain, Paresthesias - Allergies/Home Medications Allergies/Adverse Reactions: Allergies Allergy/AdvReac Type Severity Reaction Status Date / Time Clarithromycin [From Biaxin] Allergy Intermediate Rash Verified 12/09/16 23:48 PMH/Surg Hx/FS Hx/Imm Hx Previously Healthy: Yes Endocrine/Hematology History: Reports: Other Endocrine/Hematological Disorders - Hx Low potassium Denies: Hx Diabetes Cardiovascular History: Reports: Hx Hypertension Denies: Hx Pacemaker/ICD Respiratory History: Reports: Hx Asthma GI History: Reports: Hx Gastroesophageal Reflux Disease, Other GI Disorders - Hemorrhoids History: Reports: Other Problems/Disorders - Hx UTI Denies: Hx Dialysis, Hx Renal Disease Musculoskeletal History: Reports: Other Musculoskeletal History - herniated disc in lower back & in neck Sensory History: Denies: Hx Hearing Aid Psychiatric History: Denies: Hx Panic Disorder - Surgical History Surgery Procedure, Year, and Place: HYSTERECTOMY, CSECTIONS - Immunization History Date of Tetanus Vaccine: unk Date of Influenza Vaccine: unk Hx Pertussis Vaccination: No Immunizations Up to Date: Unable to Obtain/Confirm Infectious Disease History: Yes Infectious Disease History: Reports: Hx of Known/Suspected MRSA Denies: Traveled Outside the [place] in Last 30 Days - Family History Known Family History: Positive: Unknown, Cardiac Disease, Hypertension, Diabetes - Social History Occupation: Employed Full-time Lives: With Family Alcohol Use: Rare Hx Substance Use: No Substance Use Type: Reports: None Hx Tobacco Use: Yes Smoking Status (MU): Former Smoker Review of Systems Constitutional: Negative Eyes: Negative Cardiovascular: Negative Respiratory: Negative Positive: no symptoms reported, see HPI Positive: Arthralgia, Myalgia Skin: Negative Neurological: Negative Psychological: Normal All Other Systems Reviewed And Are Negative: Yes Physical Exam Triage Information Reviewed: Yes Vital Signs On Initial Exam: Initial Vitals Temp Pulse Resp BP Pulse Ox 97.3 F 70 16 145/91 100 12/31/16 09:57 12/31/16 09:57 12/31/16 09:57 12/31/16 09:57 12/31/16 09:57 Vital Signs Reviewed: Yes Appearance: Positive: Well-Appearing, Well-Nourished Skin: Positive: Warm, Skin Color Reflects Adequate Perfusion Neck: Positive: Tenderness @ - left side of neck on palpation Respiratory/Lung Sounds: Positive: Clear to Auscultation, Breath Sounds Present Cardiovascular: Positive: Normal, RRR Musculoskeletal: Positive: Limited @ - left shoulder abduction and adduction, Pain @ - left side of neck, shoulder on palpation Neurological: Positive: CN Intact II-III, Reflexes Intact, Speech Normal Psychiatric: Positive: Normal AVPU Assessment: Alert Diagnostics - Vital Signs Vital Signs Temp Pulse Resp BP Pulse Ox 12/31/16 11:49 98.3 F 79 18 126/74 12/31/16 10:01 97.3 F 70 16 145/91 99 12/31/16 09:57 97.3 F 70 16 145/91 100 - Laboratory Lab Statement: Any lab studies that have been ordered have been reviewed, and results considered in the medical decision making process. Course/Dx - Course Course Of Treatment: Patient presents with left shoulder abduction and adduction pain and numbness and tingling with "pinched" sensation in the left side of the neck. 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 Denies other pain. Flexeril and lidocaine patch given for rx. encouraged ibuprofen. - Diagnoses Differential Diagnosis/HQI/PQRI: Positive: Fracture (Open), Strain, Sprain Provider Diagnoses: Cervical radicular pain Discharge - Discharge Plan Condition: Stable Disposition: HOME Prescriptions: Cyclobenzaprine TAB* [Flexeril TAB*] 10 mg PO BID PRN #16 tab PRN Reason: Pain Lidocaine PATCH 5%* [Lidoderm 5% Patch*] 1 patch TRANSDERM DAILY #5 patch Patient Education Materials: Cervical Radiculopathy (ED) Referrals: Kostas Baeza MD [Primary Care Provider] - Additional Instructions: Ibuprofen 600mg three times daily Moist heat to the area several times per day Flexeril twice per day - do not drive with this medication Rest the arm as much as possible Massage therapy will help
== END 2016-12-31 11:49 | disposition home or self-care (01) ==
LOC: ED 09:56
DX: M54.12 Radiculopathy, cervical region (principal); I10 Essential (primary) hypertension; J45.909 Unspecified asthma, uncomplicated; K21.9 Gastro-esophageal reflux disease without esophagitis; Z88.1 Allergy status to other antibiotic agents; Z87.891 Personal history of nicotine dependence
CPT/HCPCS: 99282

== ENCOUNTER 2017-04-24 19:43 | Emergency (ER) | payer OTHER ==
[2017-04-24 20:04] VITALS: BP 132/92
[2017-04-24] MEDS ORDERED: Lidocaine 1%* 5 ML VIAL INJ ONE (21:20)
[2017-04-24] MEDS ORDERED: Lidocaine 1%* 5 ML VIAL ONE (21:31)
[2017-04-24] MEDS ORDERED: Sulfamethox/Trimethoprim DS 800/160* TAB PO ONE (21:43)
--- NOTE | 2017-04-24 21:43 | ED ---
Skin Complaint - HPI Summary HPI Summary: 51F presents with left ring finger swelling today. she states she got a manicure a couple days ago. She states she started to notice some pain in the area and then the swelling started to increase. She denies any injury. she denies any fever. She denies any history of MRSA. She is not diabetic. She is right handed. pain is 8/10. 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 - History of Current Complaint Chief Complaint: EDExtremityUpper Time Seen by Provider: 04/24/17 20:29 Stated Complaint: LT RING FINGER SWOLLEN Pain Intensity: 10 - Allergy/Home Medications Allergies/Adverse Reactions: Allergies Allergy/AdvReac Type Severity Reaction Status Date / Time Clarithromycin [From Biaxin] Allergy Intermediate Rash Verified 04/24/17 20:04 PMH/Surg Hx/FS Hx/Imm Hx Endocrine/Hematology History: Reports: Other Endocrine/Hematological Disorders - Hx Low potassium Denies: Hx Diabetes Cardiovascular History: Reports: Hx Hypertension Denies: Hx Pacemaker/ICD Respiratory History: Reports: Hx Asthma GI History: Reports: Hx Gastroesophageal Reflux Disease, Other GI Disorders - Hemorrhoids History: Reports: Other Problems/Disorders - Hx UTI Denies: Hx Dialysis, Hx Renal Disease Musculoskeletal History: Reports: Other Musculoskeletal History - herniated disc in lower back & in neck Psychiatric History: Denies: Hx Panic Disorder - Surgical History Surgery Procedure, Year, and Place: HYSTERECTOMY, CSECTIONS - Immunization History Date of Tetanus Vaccine: unknown Date of Influenza Vaccine: unk Infectious Disease History: No Infectious Disease History: Reports: Hx of Known/Suspected MRSA Denies: Traveled Outside the [place] in Last 30 Days - Family History Known Family History: Positive: Unknown, Cardiac Disease, Hypertension, Diabetes - Social History Alcohol Use: Rare Hx Substance Use: No Substance Use Type: Reports: None Hx Tobacco Use: Yes Smoking Status (MU): Former Smoker Review of Systems Negative: Fever Negative: Chest Pain Negative: Shortness Of Breath Positive: Edema - left ring finger All Other Systems Reviewed And Are Negative: Yes Physical Exam Triage Information Reviewed: Yes Vital Signs On Initial Exam: Initial Vitals Temp Pulse Resp BP Pulse Ox 98.0 F 90 18 132/92 98 04/24/17 19:59 04/24/17 19:59 04/24/17 19:59 04/24/17 19:59 04/24/17 19:59 Vital Signs Reviewed: Yes Appearance: Positive: Well-Appearing Skin: Positive: Warm, Dry, Other - erythema and edema near nailbed of left index finger Head/Face: Positive: Normal Head/Face Inspection Eyes: Positive: Normal, Conjunctiva Clear Respiratory/Lung Sounds: Positive: Clear to Auscultation, Breath Sounds Present Cardiovascular: Positive: Normal, RRR Musculoskeletal: Positive: Strength/ROM Intact - left hand, Other - good pulses , capillary refill<2 secs Neurological: Positive: Normal Psychiatric: Positive: Normal - [place] Coma Scale Coma Scale Total: 15 Procedures - Incision and Drainage Site: left index finger Anesthesia: Digital Instrument(s): Scalpel Diagnostics - Vital Signs Vital Signs Temp Pulse Resp BP Pulse Ox 04/24/17 19:59 98.0 F 90 18 132/92 98 - Laboratory Lab Statement: Any lab studies that have been ordered have been reviewed, and results considered in the medical decision making process. Course/Dx - Course Course Of Treatment: 51F presents with left ring finger swelling today. she states she got a manicure a couple days ago. She states she started to notice some pain in the area and then the swelling started to increase. She denies any injury. she denies any fever. She denies any history of MRSA. She is not diabetic. She is right handed. pain is 8/10. 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 performed I&D of parchonyia and got pus out. will place on bactrim. patient understand and agrees with plan. - Differential Diagnoses - Skin Complaint Differential Diagnoses: Abscess, Cellulitis, Contact Dermatitis, Other - paronychia - Diagnoses Provider Diagnoses: Paronychia of finger Discharge - Discharge Plan Condition: Good Disposition: HOME Prescriptions: Sulfamethox/Trimethoprim DS* [Bactrim DS 800/160 TAB*] 1 tab PO BID #19 tab Patient Education Materials: Paronychia (ED) Referrals: Kostas Baeza MD [Primary Care Provider] - Additional Instructions: Take antibiotic twice a day for 10 days, first dose given in ED Do warm soaks to area Take ibuprofen or Tylenol for pain every 6 hours Return to ED if develop fever, area of redness spreads, or any new or worsening symptoms
== END 2017-04-24 22:09 | disposition home or self-care (01) ==
LOC: ED 19:43
DX: L03.012 Cellulitis of left finger (principal); E87.6 Hypokalemia; I10 Essential (primary) hypertension; J45.909 Unspecified asthma, uncomplicated; K21.9 Gastro-esophageal reflux disease without esophagitis; Z90.710 Acquired absence of both cervix and uterus; Z87.891 Personal history of nicotine dependence
CPT/HCPCS: 10060; 99282; A9270-GY

== ENCOUNTER 2017-05-22 08:51 | Observation (INO) | payer OTHER ==
--- NOTE | 2017-05-22 09:43 | RAD ---
INDICATION: Chest tightness COMPARISON: Most recent comparison chest x-rays dated December 09, 2016 TECHNIQUE: PA and lateral views of the chest were obtained. FINDINGS: The heart and mediastinum are normal in size and contour. The lungs are grossly clear. There is no evidence of large pleural effusion. Visualized bones are normal for the patient's age. There is no radiographic evidence of free air beneath the diaphragm IMPRESSION: No radiographic evidence of acute cardiopulmonary disease.
[2017-05-22 09:48] LABS: Hematocrit 41 % (35-47); Hemoglobin 13.8 g/dl (12.0-16.0); Mean Corpuscular HGB Conc 33 g/dl (31-36); Mean Corpuscular Hemoglobin 31 pg (27-31); Mean Corpuscular Volume 92 fL (80-97); Mean Platelet Volume 9 um3 (7.4-10.4); Red Blood Count 4.48 10^6/ul (4.0-5.4); Red Cell Distribution Width 14 % (10.5-15); White Blood Count 6.5 10^3/ul (3.5-10.8)
[2017-05-22 09:56] LABS: Urine Bilirubin Negative (Negative); Urine Glucose Negative (Negative); Urine Nitrite Negative (Negative)
[2017-05-22 10:08] LABS: Albumin 4.1 g/dL (3.2-5.2); BUN/Creatinine Ratio 10.1 (8-20); Calcium 9.6 mg/dL (8.6-10.3); EGFR African American 98.3 (>60); EGFR Non-African American 76.4 (>60); Globulin 3.1 g/dL (2-4); Potassium 3.5 mmol/L (3.5-5.0); Total Bilirubin 0.5 mg/dL (0.2-1.0); Total Protein 7.2 g/dL (6.4-8.9)
[2017-05-22 10:55] LABS: T4 8.86 mcg/mL (6.09-12.23)
[2017-05-22 10:59] LABS: TSH (Thyroid Stimulating Horm) 1.82 mcIU/mL (0.34-5.60)
[2017-05-22] MEDS ORDERED: Aspirin Low Dose CHEW TAB* 81 MG PO ONE (12:39)
[2017-05-22] MEDS ORDERED: LORazepam TAB(*) 0.5 MG PO PRN (14:11)
[2017-05-22] MEDS ORDERED: Cyclobenzaprine TAB* 10 MG PO PRN (14:11)
[2017-05-22] MEDS ORDERED: Nitroglycerin TAB 0.4 MG* 0.4 MG TAB SL ONE (14:27)
[2017-05-22] MEDS: Omeprazole CAP* 20 MG PO SCH (16:36)
[2017-05-22] MEDS ORDERED: Triamterene/HCTZ 37.5-25 MG* CAP PO SCH ×2 (18:00→21:00)
--- NOTE | 2017-05-22 19:48 | HP ---
HISTORY AND PHYSICAL: DATE OF ADMISSION: 05/22/17 PRIMARY CARE PROVIDER: Dr. Baeza. CHIEF COMPLAINT: Palpitations, chest pressure, nausea. HISTORY OF PRESENT ILLNESS: Ms. Savi Abarca is a 51-year-old female, PMH of hypertension, chronic low back pain, GERD who presents with 2 days of intermittent heart palpitations, also with on and off sensations of chest pressure like a small child is sitting on her chest. There is also some associated pain in the right shoulder down through into the center of the chest and then to the left lower chest. She also has had her normal hot flashes making her wake up in drenched night sweats, but these are unchanged. Denies any shortness of breath. She is actually able to work out about 1 hour in the gym the day prior to admission and there was no exertional exacerbation of the chest pressure or palpitations. However, she felt herself unable to fall asleep for the majority of the night. She had an episode of nausea and vomiting 2 weeks ago and then return of the nausea 2 days ago, really pre-dating some of the palpitation symptoms. Due to the patient's chronic low back pain, she is unable to lie flat at night, so she does not know if she gets orthopneic or awakens with paroxysmal nocturnal dyspnea. Nothing else seems to exacerbate or alleviate the palpitations. She does report remote history approximately 5 years ago of a cardiac workup through [facility], which included echo- cardiogram, a Holter monitor and was started on metoprolol for which she thinks was ectopic beats and does not know any other specific diagnosis. She presents to the emergency room, had troponin initially negative, but bumped up to 0.34. Has been admitted for ACS rule out. No EKG changes. Family history of hypertension and diabetes, but no reported myocardial infarction or CHF history. She is a former smoker of 8 years' duration, quit 22 years ago. PAST MEDICAL HISTORY: 1. Hypertension. 2. Chronic low back pain. 3. GERD. MEDICATIONS: 1. Ibuprofen 800 mg p.o. q.8 hours p.r.n. for back pain. 2. Triamterene and hydrochlorothiazide 37.5-25 mg 1 capsule p.o. daily. 3. Omeprazole 40 mg p.o. daily. 4. Metoprolol succinate 50 mg p.o. daily. 5. Lisinopril 20 mg p.o. b.i.d. 6. Ativan 0.5 mg p.o. t.i.d. p.r.n. 7. Potassium chloride 30 mEq p.o. b.i.d. 8. Gabapentin 300 mg p.o. t.i.d. p.r.n. (has not used in 1 to 2 months). 9. Flexeril 10 mg p.o. q.h.s. p.r.n. (has not used in 1 to 2 months). ALLERGIES: CLARITHROMYCIN. FAMILY MEDICAL HISTORY: Dad with prostate cancer. Mother and father with hypertension, diabetes. Brother with stroke. Sister with aneurysm. 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 The patient's medical surrogate is her oldest son, Trish Gagnon. She is a full code. She denies alcohol or other drug use. REVIEW OF SYSTEMS: A complete 14-point review of systems is negative except as per HPI. The patient does attest to dry cough. PHYSICAL EXAMINATION GENERAL APPEARANCE: No acute distress, sitting in hospital bed. VITAL SIGNS: Blood pressure 157/97, satting 100% on room air, respiratory rate 17, pulse rate 90, temperature 97.1. HEENT: Normocephalic, atraumatic. Pupils are equally round and reactive to light. NECK: No cervical lymphadenopathy. Neck supple. PULMONARY: Clear to auscultation bilaterally with no wheezing, rales, or rhonchi. CARDIOVASCULAR: Regular rate and rhythm. No murmurs, rubs, or gallops. ABDOMEN: Soft, nontender, nondistended. Slightly obese. No peritoneal signs or guarding. No Vanegas's sign. EXTREMITIES: Warm, well perfused. No significant peripheral edema. NEUROLOGIC: Cranial nerves II through XII were grossly intact. Moving all extremities. SKIN: No rashes. DIAGNOSTIC STUDIES/LAB DATA: White count 6.5, hemoglobin 13.8, hematocrit 41, platelets 238,000. Sodium 136, potassium 3.5, chloride 101, carbon dioxide 29. BUN 8, creatinine 0.79. Troponin 0.34. BNP 70. TSH 1.82, T4 is 8.86. Glucose 94. Urinalysis: Specific gravity low at 1.001, otherwise negative. Hepatitis C antibody, nonreactive. Chest x-ray with no acute cardiopulmonary disease. EKG; poor R-wave progression, normal sinus rhythm, heart rate of 71, QTC 428, normal intervals, T-wave inversion in V1. No other ST elevations or depressions. ASSESSMENT/PLAN: The patient is a 51-year-old female with a past medical history of hypertension, gastroesophageal reflux disease, chronic back pain, presenting with palpitations, chest pressure with elevated troponin of 0.34. We will admit for acute coronary syndrome rule out, continue on telemetry monitoring, trend troponins, make n.p.o. for a possible stress test in the morning, try to obtain [facility] records and consider echocardiogram. For her high blood pressure, we will continue her metoprolol 50 mg daily and lisinopril 20 mg b.i.d. She is status post 324 mg aspirin in the emergency room and we will give 81 mg daily. We will get a lipid panel, consider starting statin as indicated. No evidence of impaired glucose tolerance or diabetes mellitus. We will consider A1c in the morning. She will eat a heart-healthy diet until midnight and she is a full code with medical surrogate as her son, Trish FortuneDenia. [id number]/[facility] #: [id number] [facility] HOSPITALMarisol
[2017-05-22] MEDS: Lisinopril TAB* 10 MG PO SCH (21:46)
[2017-05-22] MEDS: Gabapentin CAP(*) 300 MG PO SCH (21:47)
[2017-05-22] MEDS: Potassium Chlor TAB* 10 MEQ TAB.ER PO SCH (21:48)
[2017-05-23 05:29] LABS: HDL Cholesterol 37.5 mg/dL
[2017-05-23] MEDS: Lisinopril TAB* 10 MG PO SCH (08:01)
[2017-05-23] MEDS: Gabapentin CAP(*) 300 MG PO SCH (08:01)
[2017-05-23] MEDS: Omeprazole CAP* 20 MG PO SCH (08:01)
[2017-05-23] MEDS: Potassium Chlor TAB* 10 MEQ TAB.ER PO SCH (08:02)
[2017-05-23] MEDS ORDERED: Aspirin EC Low Dose* 81 MG TAB.EC PO SCH (09:00)
[2017-05-23] MEDS ORDERED: Metoprolol Succinate XL TAB* 50 MG PO SCH (09:00)
[2017-05-23] MEDS ORDERED: Fluticasone NASAL SPRAY 50MCG* 16 gm SPRAY BTL BOTH NARES SCH (09:00)
[2017-05-23] MEDS ORDERED: Regadenoson* 0.4 MG/5 ML SYRINGE ONE (09:14)
--- NOTE | 2017-05-23 11:38 | RAD ---
Edited for charges. Indication: Chest pain. Myocardial perfusion scan was performed utilizing 1 day protocol. Rest myocardial perfusion was performed after intravenous injection of 10.04 mCi of technetium 99 and tetrofosmin. Pharmacological stress was applied and 25.24 mCi of technetium 99m tetrofosmin was injected for the stress portion of the study. There is homogeneous distribution of the radiotracer throughout the left ventricle. There is no evidence of fixed or reversible perfusion defects. Normal left ventricular size is noted. The ejection fraction at stress is 68%. Evaluation of wall motion demonstrates no evidence of focal wall motion abnormality. IMPRESSION: No evidence of fixed or reversible perfusion defect is identified. ASSESSMENT: Low risk Based on imaging criteria from ACC/AHA 2002 Guideline Update for the Management of Patients With Chronic Stable Angina Table 23. Noninvasive Risk Stratification. MTDD
[2017-05-23 12:02] VITALS: BP 146/99
--- NOTE | 2017-05-24 03:42 | DS ---
CC: Dr. Baeza * DISCHARGE SUMMARY: DATE OF ADMISSION: 05/22/17 DATE OF DISCHARGE: 05/23/17 HISTORY: This 52-year-old woman was admitted the day before her birthday with palpitation, chest pressure, and nausea. She said that she was not under any particular stress. She said she has been having some mild discomfort for a couple of days. I think she normally lives a life of quite a bit of stress. 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 The patient was admitted to a telemetry unit first and third troponins were 0.0 , the second troponin was 0.34 almost certainly a lab error. EKG did not show any significant ST or T wave changes. Stress test with nuclear imaging showed normal ejection fraction, no wall motion abnormalities and no evidence of infarct or ischemia. The patient had no further symptoms in the hospital. FINAL DIAGNOSES: 1. Chest pressure, possibly stress related. 2. Hypertension. 3. Chronic back pain. 4. Gastroesophageal reflux disease. DISCHARGE MEDICATIONS: 1. Potassium chloride 30 mEq b.i.d. 2. Lisinopril 20 mg b.i.d. 3. Triamterene/hydrochlorothiazide 37.5/25 one daily. 4. Cyclobenzaprine 10 mg h.s. p.r.n. 5. Albuterol inhaler 2 puffs every 6 hours p.r.n. 6. Ondansetron ODT 4 mg every 8 hours p.r.n. 7. Omeprazole 40 mg daily. 8. Metoprolol succinate 50 mg daily. 9. Lorazepam 0.5 mg t.i.d. p.r.n. 10. Ibuprofen 800 mg every 8 hours p.r.n. 11. Fluticasone nasal spray 2 sprays both nares daily. 12. Gabapentin 300 mg t.i.d. [id number]/[facility] #: [id number] MTDD
== END 2017-05-23 13:39 | disposition home or self-care (01) ==
LOC: ED 08:51 → MEDTELE 13:52
PROVIDERS: ADMIT Internal Medicine; ATTEND Internal Medicine
DX: R07.9 Chest pain, unspecified (principal); I10 Essential (primary) hypertension; Z79.899 Other long term (current) drug therapy; K21.9 Gastro-esophageal reflux disease without esophagitis; Z88.1 Allergy status to other antibiotic agents; M54.5 Low back pain; G89.29 Other chronic pain; R94.31 Abnormal electrocardiogram [ECG] [EKG]
CPT/HCPCS: 36415; 71020; 78452; 80053; 80061; 81003; 82550; 82553; 83735; 83880; 84436; 84443; 84484; 85025; 86703; 86803; 87641; 93005; 93017; 99284; A9270-GY; A9502; G0378; J2785

== ENCOUNTER 2017-05-29 19:53 | Emergency (ER) | payer OTHER ==
--- NOTE | 2017-05-29 20:52 | ED ---
Upper Extremity Pain - HPI Summary HPI Summary: 52M presents with right arm pain for 2 days. She states she is unable to move her arm due to right shoulder pain. on exam she is moving her right arm. She denies any injury. She states she has been getting in and out of cars and may have pulled to hard on the door. She denies any numbness or tingling. She denies any weakness. She denies any decrease in sensation. She denies any previous trauma to the area. She has been using flexeril and ibuprofen without relief. - History of Current Complaint Chief Complaint: EDExtremityUpper Stated Complaint: UNABLE TO MOVE RT ARM Time Seen by Provider: 05/29/17 20:10 - Allergies/Home Medications Allergies/Adverse Reactions: Allergies Allergy/AdvReac Type Severity Reaction Status Date / Time Clarithromycin [From Biaxin] Allergy Intermediate Rash Verified 04/24/17 20:04 PMH/Surg Hx/FS Hx/Imm Hx Endocrine/Hematology History: Reports: Other Endocrine/Hematological Disorders - Hx Low potassium Denies: Hx Diabetes Cardiovascular History: Reports: Hx Angina - pressure, Hx Hypertension Denies: Hx Pacemaker/ICD Respiratory History: Reports: Hx Asthma GI History: Reports: Hx Gastroesophageal Reflux Disease, Other GI Disorders - Hemorrhoids History: Reports: Other Problems/Disorders - Hx UTI Denies: Hx Dialysis, Hx Renal Disease Musculoskeletal History: Reports: Other Musculoskeletal History - herniated disc in lower back & in neck Sensory History: Reports: Hx Contacts or Glasses Denies: Hx Hearing Aid Opthamlomology History: Reports: Hx Contacts or Glasses Psychiatric History: Denies: Hx Panic Disorder - Surgical History Surgery Procedure, Year, and Place: HYSTERECTOMY, CSECTIONS - Immunization History Date of Tetanus Vaccine: unknown Date of Influenza Vaccine: unk Immunizations Up to Date: Yes Infectious Disease History: No Infectious Disease History: Reports: Hx of Known/Suspected MRSA - per pt. Denies: Traveled Outside the [place] in Last 30 Days - Family History Known Family History: Positive: Unknown, Cardiac Disease, Hypertension, Diabetes - Social History Alcohol Use: Rare Hx Substance Use: No Substance Use Type: Reports: None Hx Tobacco Use: Yes Smoking Status (MU): Former Smoker Review of Systems Negative: Fever Negative: Chest Pain Negative: Shortness Of Breath Positive: Myalgia - right shoulder All Other Systems Reviewed And Are Negative: Yes Physical Exam Triage Information Reviewed: Yes Vital Signs On Initial Exam: Initial Vitals Temp Pulse Resp BP Pulse Ox 97.7 F 81 16 152/95 100 05/29/17 19:56 05/29/17 19:56 05/29/17 19:56 05/29/17 19:56 05/29/17 19:56 Vital Signs Reviewed: Yes Appearance: Positive: Well-Appearing Skin: Positive: Warm, Dry Head/Face: Positive: Normal Head/Face Inspection Eyes: Positive: Normal, Conjunctiva Clear Respiratory/Lung Sounds: Positive: Clear to Auscultation, Breath Sounds Present Cardiovascular: Positive: Normal, RRR Musculoskeletal: Positive: Limited @ - right shoulder, Other - tenderness over anterior right shoulder, neg yearsons, drop arm, pos campbell, good pulses, sensation grossly intact, capillary refill<2 secs Neurological: Positive: Normal - [place] Coma Scale Coma Scale Total: 15 Diagnostics - Vital Signs Vital Signs Temp Pulse Resp BP Pulse Ox 05/29/17 19:56 97.7 F 81 16 152/95 100 - Laboratory Lab Statement: Any lab studies that have been ordered have been reviewed, and results considered in the medical decision making process. - Radiology xray Xray Interpretation: Positive (See Comments) - IMPRESSION: AC joint arthritis without evidence of fracture. Radiology Interpretation Completed By: Radiologist Course/Dx - Course Course Of Treatment: 52M presents with right arm pain for 2 days. She states she is unable to move her arm due to right shoulder pain. on exam she is moving her right arm. She denies any injury. She states she has been getting in and out of cars and may have pulled to hard on the door. She denies any numbness or tingling. She denies any weakness. She denies any decrease in sensation. She denies any previous trauma to the area. She has been using flexeril and ibuprofen without relief. on exam neurovascular intact, neg yearson, drop arm. pos campbell. xray shows arthritis. will try lidocaine patches and naproxen instead of ibuprofen for pain. patient will follow up with primary. patient understand and agrees with plan. - Diagnoses Differential Diagnosis/HQI/PQRI: Positive: Fracture (Closed), Strain, Sprain Provider Diagnoses: Right shoulder pain Discharge - Discharge Plan Condition: Good Disposition: HOME Prescriptions: Lidocaine PATCH 5%* [Lidoderm 5% Patch*] 1 patch TRANSDERM DAILY #5 patch Naproxen TAB* [Naprosyn 375 mg TAB*] 375 mg PO BID PRN #20 tab PRN Reason: Pain Patient Education Materials: Shoulder Pain (ED) Referrals: Kostas Baeza MD [Primary Care Provider] - Steve Albrecht MD [Medical Doctor] - Additional Instructions: Take Tylenol every 6 hours use naproxen twice a day as needed for pain Use lidoderm patches on area twice a day Ice/heat Can rest for one day and then need to do range of motion activities for shoulder Follow up with ortho if no improvement Return to ED if develop any new or worsening symptoms
[2017-05-29] MEDS ORDERED: Lidocaine PATCH 5%* 1 PATCH TRANSDERM ONE (21:37)
--- NOTE | 2017-05-29 21:49 | RAD ---
Indication: Right shoulder injury and pain. 4 views of the right shoulder demonstrates AC joint arthritis. No fracture is noted. No other bone or joint abnormality is noted. IMPRESSION: AC joint arthritis without evidence of fracture.
[2017-05-29 22:06] VITALS: BP 149/92
== END 2017-05-29 22:06 | disposition home or self-care (01) ==
LOC: ED 19:53
DX: M25.511 Pain in right shoulder (principal); I10 Essential (primary) hypertension; J45.909 Unspecified asthma, uncomplicated; K21.9 Gastro-esophageal reflux disease without esophagitis
CPT/HCPCS: 99282; A9270-GY

== ENCOUNTER 2017-09-08 09:48 | Emergency (ER) | payer OTHER ==
[2017-09-08 11:44] LABS: ABS Basophils 0.1 10^3/ul (0-0.2); ABS Eosinophils 0.2 10^3/ul (0-0.6); ABS Lymphocytes 1.6 10^3/ul (1.0-4.8); ABS Monocytes 0.4 10^3/ul (0-0.8); ABS Neutrophils 3.3 10^3/ul (1.5-7.7); ABS Nucleated RBC 0 10^3/ul; Hematocrit 42 % (35-47); Hemoglobin 14.1 g/dl (12.0-16.0); Mean Corpuscular HGB Conc 34 g/dl (31-36); Mean Corpuscular Hemoglobin 31 pg (27-31); Mean Corpuscular Volume 92 fL (80-97); Mean Platelet Volume 10 um3 (7.4-10.4); Nucleated Red Blood Cells % 0.2; Platelet Count 223 10^3/ul (150-450); Red Blood Count 4.56 10^6/ul (4.0-5.4); Red Cell Distribution Width 14 % (10.5-15); White Blood Count 5.5 10^3/ul (3.5-10.8)
[2017-09-08 11:55] LABS: EGFR Non-African American 71.9 (>60)
[2017-09-08 12:45] LABS: Urine Appearance Clear; Urine Blood 1+ (Negative); Urine Color Straw; Urine Ketones Negative (Negative); Urine Protein Negative (Negative); Urine Specific Gravity 1.004 (1.010-1.030); Urine Urobilinogen Negative (Negative)
[2017-09-08 14:28] VITALS: BP 152/82
--- NOTE | 2017-09-09 19:42 | ED ---
Kalli Up Thomas, scribed for Ray España MD on 09/08/17 at 1125 . Hypertension - HPI Summary HPI Summary: The patient is a 52 year old female who presents to the emergency department because she woke up this morning and noted her blood pressure to be 200/105. In the emergency room, after she has taken her blood pressure medication, her blood pressure is 164/93 at triage. In the ED, she complains of left-sided headache. She notes some weight gain over the last week. The patient had some leg swelling yesterday at the end of the day, but this has since relieved. The patient denies shortness of breath in the emergency department, but the patient did wake up two nights ago with shortness of breath that was relieved by sitting up. At baseline, the patient sleeps on many pillows. - History of Current Complaint Chief Complaint: EDHypertension Stated Complaint: EVAL BP/HEADACHE Time Seen by Provider: 09/08/17 10:54 Hx Obtained From: Patient Onset/Duration: Started Hours Ago - onset this morning, Still Present Timing: Constant Reported Blood Pressure Prior To Arrival: 200/105 Alleviating Factor(s): Other - BP meds Associated Signs & Symptoms: Other: - elevated BP, ELDRIDGE, orthopnea, leg swelling - Allergies/Home Medications Allergies/Adverse Reactions: Allergies Allergy/AdvReac Type Severity Reaction Status Date / Time clarithromycin [From Biaxin] Allergy Rash Verified 09/08/17 09:56 PMH/Surg Hx/FS Hx/Imm Hx Endocrine/Hematology History: Reports: Other Endocrine/Hematological Disorders - Hx Low potassium Denies: Hx Diabetes Cardiovascular History: Reports: Hx Angina - pressure, Hx Hypertension Denies: Hx Pacemaker/ICD Respiratory History: Reports: Hx Asthma GI History: Reports: Hx Gastroesophageal Reflux Disease, Other GI Disorders - Hemorrhoids History: Reports: Other Problems/Disorders - Hx UTI Denies: Hx Dialysis, Hx Renal Disease Musculoskeletal History: Reports: Other Musculoskeletal History - herniated disc in lower back & in neck Sensory History: Reports: Hx Contacts or Glasses Denies: Hx Hearing Aid Opthamlomology History: Reports: Hx Contacts or Glasses Psychiatric History: Denies: Hx Panic Disorder - Surgical History Surgery Procedure, Year, and Place: HYSTERECTOMY, CSECTIONS - Immunization History Date of Tetanus Vaccine: unknown Date of Influenza Vaccine: unk Infectious Disease History: No Infectious Disease History: Reports: Hx of Known/Suspected MRSA - per pt. Denies: Traveled Outside the [place] in Last 30 Days - Family History Known Family History: Positive: Cardiac Disease, Hypertension, Diabetes - Social History Alcohol Use: Rare Hx Substance Use: No Substance Use Type: Reports: None Hx Tobacco Use: Yes Smoking Status (MU): Former Smoker Review of Systems Negative: Fever Positive: Shortness Of Breath - none in ED, but some SOB two days ago when sleeping Positive: Other - Leg swelling Positive: Headache All Other Systems Reviewed And Are Negative: Yes Physical Exam - Summary Physical Exam Summary: Appearance: The patient is well-nourished in no acute distress and in no acute pain. Skin: The skin is warm and dry and skin color reflects adequate perfusion. HEENT: ~The head is normocephalic and atraumatic. The pupils are equal and reactive. The conjunctivae are clear and without drainage. ~Nares are patent and without drainage. Mouth reveals moist mucous membranes and the throat is without erythema and exudate. The external ears are intact. The ear canals are patent and without drainage. The tympanic membranes are intact. Neck: the neck is supple with full range of motion and non-tender. There are no carotid bruits. ~There is no neck vein distension. Respiratory: Chest is non-tender. ~Lungs are clear to auscultation and breath sounds are symmetrical and equal. Cardiovascular: Heart is regular rate and rhythm. ~There is no murmur or rub auscultated. ~~There is no peripheral edema and pulses are symmetrical and equal. Abdomen: The abdomen is soft and non-tender. ~There are normal bowel sounds heard in all four quadrants and there is no organomegaly palpated. Musculoskeletal: There is no back tenderness noted. ~Extremities are non-tender with full range of motion. ~There is good capillary refill. There is no peripheral edema or calf tenderness elicited. Neurological: Patient is alert and oriented to person, place and time. ~The patient has symmetrical motor strength in all four extremities. ~Cranial nerves are grossly intact. Deep tendon reflexes are symmetrical and equal in all four extremities. Psychiatric: The patient has an appropriate affect and does not exhibit any anxiety or depression. Triage Information Reviewed: Yes Vital Signs On Initial Exam: Initial Vitals Temp Pulse Resp BP Pulse Ox 98.3 F 84 16 164/93 100 09/08/17 09:56 09/08/17 09:56 09/08/17 09:56 09/08/17 09:56 09/08/17 09:56 Vital Signs Reviewed: Yes Diagnostics - Vital Signs Vital Signs Temp Pulse Resp BP Pulse Ox 09/08/17 10:44 75 98 09/08/17 10:43 148/98 09/08/17 09:56 98.3 F 84 16 164/93 100 - Laboratory Lab Results: Lab Results 09/08/17 09/08/17 09/08/17 Range/Units 11:19 11:19 11:19 WBC 5.5 (3.5-10.8) 10^3/ul RBC 4.56 (4.0-5.4) 10^6/ul Hgb 14.1 (12.0-16.0) g/dl Hct 42 (35-47) % MCV 92 (80-97) fL MCH 31 (27-31) pg MCHC 34 (31-36) g/dl RDW 14 (10.5-15) % Plt Count 223 (150-450) 10^3/ul MPV 10 (7.4-10.4) um3 Neut % (Auto) 59.9 (38-83) % Lymph % (Auto) 29.0 (25-47) % [place] % (Auto) 7.0 (0-7) % Eos % (Auto) 3.0 (0-6) % Baso % (Auto) 1.1 (0-2) % Absolute Neuts (auto) 3.3 (1.5-7.7) 10^3/ul Absolute Lymphs (auto) 1.6 (1.0-4.8) 10^3/ul Absolute Monos (auto) 0.4 (0-0.8) 10^3/ul Absolute Eos (auto) 0.2 (0-0.6) 10^3/ul Absolute Basos (auto) 0.1 (0-0.2) 10^3/ul Absolute Nucleated RBC 0 10^3/ul Nucleated RBC % 0.2 Sodium 138 (133-145) mmol/L Potassium 3.6 (3.5-5.0) mmol/L Chloride 104 (101-111) mmol/L Carbon Dioxide 30 (22-32) mmol/L Anion Gap 4 (2-11) mmol/L BUN 13 (6-24) mg/dL Creatinine 0.83 (0.51-0.95) mg/dL Est GFR ( Amer) 92.5 (>60) Est GFR (Non-Af Amer) 71.9 (>60) BUN/Creatinine Ratio 15.7 (8-20) Glucose 92 (70-100) mg/dL Calcium 9.7 (8.6-10.3) mg/dL Total Bilirubin 0.40 (0.2-1.0) mg/dL AST 14 (13-39) U/L ALT 7 (7-52) U/L Alkaline Phosphatase 68 (34-104) U/L Troponin I 0.00 (<0.04) ng/mL B-Natriuretic Peptide 38 ( - 100) pg/mL Total Protein 7.1 (6.4-8.9) g/dL Albumin 3.9 (3.2-5.2) g/dL Globulin 3.2 (2-4) g/dL Albumin/Globulin Ratio 1.2 (1-3) TSH 0.81 (0.34-5.60) mcIU/mL Urine Color Urine Appearance Urine pH (5-9) Ur Specific [place] (1.010-1.030) Urine Protein (Negative) Urine Ketones (Negative) Urine Blood (Negative) Urine Nitrate (Negative) Urine Bilirubin (Negative) Urine Urobilinogen (Negative) Ur Leukocyte Esterase (Negative) Urine WBC (Auto) (Absent) Urine RBC (Auto) (Absent) Ur Squamous Epith Cells (Absent) Urine Bacteria (Absent) Urine Glucose (Negative) 09/08/17 Range/Units 12:02 WBC (3.5-10.8) 10^3/ul RBC (4.0-5.4) 10^6/ul Hgb (12.0-16.0) g/dl Hct (35-47) % MCV (80-97) fL MCH (27-31) pg MCHC (31-36) g/dl RDW (10.5-15) % Plt Count (150-450) 10^3/ul MPV (7.4-10.4) um3 Neut % (Auto) (38-83) % Lymph % (Auto) (25-47) % [place] % (Auto) (0-7) % Eos % (Auto) (0-6) % Baso % (Auto) (0-2) % Absolute Neuts (auto) (1.5-7.7) 10^3/ul Absolute Lymphs (auto) (1.0-4.8) 10^3/ul Absolute Monos (auto) (0-0.8) 10^3/ul Absolute Eos (auto) (0-0.6) 10^3/ul Absolute Basos (auto) (0-0.2) 10^3/ul Absolute Nucleated RBC 10^3/ul Nucleated RBC % Sodium (133-145) mmol/L Potassium (3.5-5.0) mmol/L Chloride (101-111) mmol/L Carbon Dioxide (22-32) mmol/L Anion Gap (2-11) mmol/L BUN (6-24) mg/dL Creatinine (0.51-0.95) mg/dL Est GFR ( Amer) (>60) Est GFR (Non-Af Amer) (>60) BUN/Creatinine Ratio (8-20) Glucose (70-100) mg/dL Calcium (8.6-10.3) mg/dL Total Bilirubin (0.2-1.0) mg/dL AST (13-39) U/L ALT (7-52) U/L Alkaline Phosphatase (34-104) U/L Troponin I (<0.04) ng/mL B-Natriuretic Peptide ( - 100) pg/mL Total Protein (6.4-8.9) g/dL Albumin (3.2-5.2) g/dL Globulin (2-4) g/dL Albumin/Globulin Ratio (1-3) TSH (0.34-5.60) mcIU/mL Urine Color Straw Urine Appearance Clear Urine pH 6.0 (5-9) Ur Specific [place] 1.004 L (1.010-1.030) Urine Protein Negative (Negative) Urine Ketones Negative (Negative) Urine Blood 1+ A (Negative) Urine Nitrate Negative (Negative) Urine Bilirubin Negative (Negative) Urine Urobilinogen Negative (Negative) Ur Leukocyte Esterase Negative (Negative) Urine WBC (Auto) Trace(0-5/hpf) (Absent) Urine RBC (Auto) Trace(0-2/hpf) (Absent) Ur Squamous Epith Cells Present A (Absent) Urine Bacteria 1+ A (Absent) Urine Glucose Negative (Negative) Result Diagrams: 09/08/17 11:19 09/08/17 11:19 Lab Statement: Any lab studies that have been ordered have been reviewed, and results considered in the medical decision making process. - EKG 11:52 Cardiac Rate: NL EKG Rhythm: Sinus Rhythm EKG Interpretation: Normal EKG Hypertension Course/Dx - Course Course Of Treatment: Ms. Abarca presented with the concern that her BP is running high. She was observed on the monitor and labs checked. Her BPs were indeed running high but not emergent and I recommended that she F/U with her PMD and track her BPs. - Diagnoses Provider Diagnoses: HTN (hypertension) Discharge - Discharge Plan Condition: Stable Disposition: HOME Patient Education Materials: Hypertension (ED) Referrals: Kostas Baeza MD [Primary Care Provider] - 3 Days Additional Instructions: Follow up with Dr. Bazea in 2-3 days. Return to the emergency department for any new or worsening symptoms. The documentation as recorded by the Kalli arenas Thomas accurately reflects the service I personally performed and the decisions made by , Ray España MD.
== END 2017-09-08 14:31 | disposition home or self-care (01) ==
LOC: ED 09:48
DX: I10 Essential (primary) hypertension (principal); R51 Headache; R60.0 Localized edema; R06.02 Shortness of breath; I20.9 Angina pectoris, unspecified; J45.909 Unspecified asthma, uncomplicated; K21.9 Gastro-esophageal reflux disease without esophagitis; Z87.440 Personal history of urinary (tract) infections; Z88.1 Allergy status to other antibiotic agents; Z87.891 Personal history of nicotine dependence
CPT/HCPCS: 36415; 80053; 81003; 81015; 83880; 84443; 84484; 85025; 87086; 93005; 99282

== ENCOUNTER 2017-09-10 20:02 | Emergency (ER) | payer OTHER ==
[2017-09-10] MEDS ORDERED: Pantoprazole IV* 40 MG IV ONE (20:53)
--- NOTE | 2017-09-10 21:10 | RAD ---
INDICATION: Short of breath COMPARISON: : 2016 TECHNIQUE: An AP portable view obtained at 2101 hours is submitted. FINDINGS: Bones/Soft Tissues: There are no acute bony findings. Cardiomediastinal: The cardiomediastinal silhouette is normal. Lungs: There are no infiltrates. Pleura: There are no pleural effusions. Other: None IMPRESSION: NO ACTIVE DISEASE.
[2017-09-10 21:28] LABS: ABS Basophils 0.1 10^3/ul (0-0.2); ABS Eosinophils 0.2 10^3/ul (0-0.6); ABS Lymphocytes 2.1 10^3/ul (1.0-4.8); ABS Monocytes 0.4 10^3/ul (0-0.8); ABS Nucleated RBC 0 10^3/ul; Eosinophil % 3.5 % (0-6); Hematocrit 41 % (35-47); Hemoglobin 13.7 g/dl (12.0-16.0); Lymphocyte % 36.2 % (25-47); Mean Corpuscular HGB Conc 34 g/dl (31-36); Mean Corpuscular Hemoglobin 31 pg (27-31); Mean Corpuscular Volume 92 fL (80-97); Mean Platelet Volume 9 um3 (7.4-10.4); Nucleated Red Blood Cells % 0.1; Platelet Count 222 10^3/ul (150-450); Red Blood Count 4.44 10^6/ul (4.0-5.4); Red Cell Distribution Width 14 % (10.5-15); White Blood Count 5.8 10^3/ul (3.5-10.8)
[2017-09-10 21:37] LABS: INR 0.91 (0.77-1.02)
[2017-09-10] MEDS ORDERED: Potassium Chlor TAB* 20 MEQ TAB.ER PO ONE (22:04)
--- NOTE | 2017-09-10 22:22 | ED ---
Kalli Up Thomas, scribed for Gus Carmona MD on 09/10/17 at 2049 . HPI Chest Pain - HPI Summary HPI Summary: The patient is a 52 year old female complaining of a 15-minute episode of chest tightness that began today at 18:30. The pain was located in the middle of her chest and it radiated to her neck. She took two aspirins shortly after pain began. She also reports that I couldnt take a deep breath during the episode of chest pain. Her last stress test was 05/22/17 and she reports that it was negative. The patient was a patient at [facility] two days ago with elevated blood pressure. - History of Current Complaint Chief Complaint: EDChestPainROMI Time Seen by Provider: 09/10/17 20:17 Hx Obtained From: Patient Onset/Duration: Started Hours Ago, Resolved Time of Onset: 18:30 Timing: Lasting Minutes - 15 Initial Severity: Moderate Current Severity: None Pain Intensity: 0 Pain Scale Used: 0-10 Numeric Chest Pain Location: Discrete at: - middle of chest Chest Pain Radiates: Yes Chest Pain Radiates To:: Neck Character: Tightness Alleviating Factor(s): Other: - ASA Associated Signs and Symptoms: Positive: Chest Pain, Other: - Inability to take deep breath Related History: Obesity - Allergy/Home Medications Allergies/Adverse Reactions: Allergies Allergy/AdvReac Type Severity Reaction Status Date / Time clarithromycin [From Biaxin] Allergy Rash Verified 09/10/17 20:12 PMH/Surg Hx/FS Hx/Imm Hx Endocrine/Hematology History: Reports: Other Endocrine/Hematological Disorders - Hx Low potassium Denies: Hx Diabetes Cardiovascular History: Reports: Hx Angina - pressure, Hx Hypertension Denies: Hx Pacemaker/ICD Respiratory History: Reports: Hx Asthma GI History: Reports: Hx Gastroesophageal Reflux Disease, Other GI Disorders - Hemorrhoids History: Reports: Other Problems/Disorders - Hx UTI Denies: Hx Dialysis, Hx Renal Disease Musculoskeletal History: Reports: Other Musculoskeletal History - herniated disc in lower back & in neck Sensory History: Reports: Hx Contacts or Glasses Denies: Hx Hearing Aid Opthamlomology History: Reports: Hx Contacts or Glasses Psychiatric History: Denies: Hx Panic Disorder - Surgical History Surgery Procedure, Year, and Place: HYSTERECTOMY, CSECTIONS - Immunization History Date of Tetanus Vaccine: unknown Date of Influenza Vaccine: unk Infectious Disease History: No Infectious Disease History: Reports: Hx of Known/Suspected MRSA - per pt. Denies: Traveled Outside the [place] in Last 30 Days - Family History Known Family History: Positive: Cardiac Disease, Hypertension, Diabetes - Social History Alcohol Use: Rare Hx Substance Use: No Substance Use Type: Reports: None Hx Tobacco Use: Yes Smoking Status (MU): Former Smoker Review of Systems Negative: Fever Positive: Chest Pain Positive: Other - "inability to take deep breath" All Other Systems Reviewed And Are Negative: Yes Physical Exam - Summary Physical Exam Summary: VITAL SIGNS: Reviewed. GENERAL: Patient is a well-developed and nourished female who is lying comfortable in the stretcher. Patient is not in any acute respiratory distress. HEAD AND FACE: No signs of trauma. No ecchymosis, hematomas or skull depressions. No sinus tenderness. EYES: PERRLA, EOMI x 2, No injected conjunctiva, no nystagmus. EARS: Hearing grossly intact. Ear canals and tympanic membranes are within normal limits. MOUTH: Oropharynx within normal limits. NECK: Supple, trachea is midline, no adenopathy, no JVD, no carotid bruit, no c- spine tenderness, neck with full ROM. CHEST: Symmetric, no tenderness at palpation LUNGS: Clear to auscultation bilaterally. No wheezing or crackles. CVS: Regular rate and rhythm, S1 and S2 present, no murmurs or gallops appreciated. ABDOMEN: Soft, non-tender. No signs of distention. No rebound no guarding, and no masses palpated. Bowel sounds are normal. EXTREMITIES: FROM in all major joints, no edema, no cyanosis or clubbing. NEURO: Alert and oriented x 3. No acute neurological deficits. Speech is normal and follows commands. SKIN: Dry and warm Triage Information Reviewed: Yes Vital Signs On Initial Exam: Initial Vitals Temp Pulse Resp BP Pulse Ox 97.4 F 82 18 175/98 98 09/10/17 20:08 09/10/17 20:08 09/10/17 20:08 09/10/17 20:08 09/10/17 20:08 Vital Signs Reviewed: Yes Diagnostics - Vital Signs Vital Signs Temp Pulse Resp BP Pulse Ox 09/10/17 20:08 97.4 F 82 18 175/98 98 - Laboratory Result Diagrams: 09/10/17 21:14 09/10/17 21:14 Lab Statement: Any lab studies that have been ordered have been reviewed, and results considered in the medical decision making process. - Radiology CXR Xray Interpretation: No Acute Changes - NO ACTIVE DISEASE. Dr. Carmona has reviewed this report. Radiology Interpretation Completed By: Radiologist - EKG 20:02 Cardiac Rate: NL EKG Rhythm: Sinus Rhythm - at 75 BPM EKG Interpretation: Nonspecific T-wave changes in inferior leads. Re-Evaluation - Re-Evaluation First Eval Re-Evaluation Time: 22:14 Comment: Discussed results. Patient will be discharged. Chest Pain Course/Dx - Course Assessment/Plan: The patient is a 52 year old female complaining of a 15-minute episode of chest tightness with radiation to her neck that began today at 18: 30. She took two aspirins prior to arrival. In the ED course the patient was given Protonix. Bloodwork, EKG, and CXR were obtained. The patient did have a nuclear stress test in April 2017 that showed no evidence of fixed or reversible perfusion defect is identified. The patient is diagnosed with atypical chest pain, probably GERD. The patient is instructed to follow up with primary care. The patient is prescribed Protonix. - Diagnoses Provider Diagnoses: Atypical chest pain, probably GERD Discharge - Discharge Plan Condition: Stable Disposition: HOME Prescriptions: Pantoprazole TAB (NF) [Protonix TAB (NF)] 40 mg PO DAILY #30 tab Patient Education Materials: Chest Pain (ED) Referrals: Kostas Baeza MD [Primary Care Provider] - 3 Days Additional Instructions: Follow up with your primary care physician in three days. Return to the emergency department for any new or worsening symptoms. The documentation as recorded by the Kalli arenas Thomas accurately reflects the service I personally performed and the decisions made by , Gus Carmona MD.
[2017-09-10 23:21] VITALS: BP 145/95
== END 2017-09-10 23:20 | disposition home or self-care (01) ==
LOC: ED 20:02
DX: R07.89 Other chest pain (principal); I20.9 Angina pectoris, unspecified; I10 Essential (primary) hypertension; J45.909 Unspecified asthma, uncomplicated; K21.9 Gastro-esophageal reflux disease without esophagitis; Z87.440 Personal history of urinary (tract) infections; Z88.1 Allergy status to other antibiotic agents; Z87.891 Personal history of nicotine dependence
CPT/HCPCS: 36415; 71045; 80053; 83605; 83735; 84484; 85025; 85610; 85730; 93005; 96374; 99282; A9270-GY

== ENCOUNTER 2017-09-20 21:49 | Emergency (ER) | payer OTHER ==
[2017-09-20] MEDS ORDERED: LORazepam TAB(*) 1 MG PO ONE (22:59)
[2017-09-20 23:34] VITALS: BP 131/91
--- NOTE | 2017-09-20 23:58 | ED ---
Palpitations / Dysrhythmia - HPI Summary HPI Summary: Is a 52-year-old female presenting to the ED with chief complaint of palpitations, shaking to her upper extremities and heart racing which lasted approximately 15 minutes. Significant history of anxiety. Patient has been seen in the ED many times for palpitations and anxiety symptoms with cardiac workups which have all been negative. On last visit, stress test was completed and normal. She does not take any medication for high blood pressure and has never had a history of such. No history of CAD. History of anxiety and is prescribed lorazepam. However, she did not take this medication today. She believes this is an anxiety attack but was unable to discern from something cardiac related. Denies any diaphoresis, blurry vision, double vision, headache , numbness or tingling. She states this was similar to her previous anxiety attacks. Endorses some shortness of breath which has since resolved. Partner at bedside. - History of Current Complaint Chief Complaint: EDChestPainROMI Time Seen by Provider: 09/20/17 22:37 Hx Obtained From: Patient Onset/Duration: Sudden Onset Timing: Constant Severity Initially: Mild Severity Currently: None Character: Fast Aggravating: Rest Associated Signs & Symptoms: Shortness of Breath Related History: Similar Episode/Dx as - previous anxiety attacks - Risk Factors Cardiac: Negative Pulmonary Embolism: Negative Atrial Fibrillation: Negative - Allergy/Home Medications Allergies/Adverse Reactions: Allergies Allergy/AdvReac Type Severity Reaction Status Date / Time clarithromycin [From Biaxin] Allergy Rash Verified 09/10/17 20:12 PMH/Surg Hx/FS Hx/Imm Hx Previously Healthy: Yes Endocrine/Hematology History: Reports: Other Endocrine/Hematological Disorders - Hx Low potassium Denies: Hx Diabetes Cardiovascular History: Reports: Hx Angina - pressure, Hx Hypertension Denies: Hx Pacemaker/ICD Respiratory History: Reports: Hx Asthma GI History: Reports: Hx Gastroesophageal Reflux Disease, Other GI Disorders - Hemorrhoids History: Reports: Other Problems/Disorders - Hx UTI Denies: Hx Dialysis, Hx Renal Disease Musculoskeletal History: Reports: Other Musculoskeletal History - herniated disc in lower back & in neck Sensory History: Reports: Hx Contacts or Glasses Denies: Hx Hearing Aid Opthamlomology History: Reports: Hx Contacts or Glasses Psychiatric History: Denies: Hx Panic Disorder - Surgical History Surgery Procedure, Year, and Place: HYSTERECTOMY, CSECTIONS - Immunization History Date of Tetanus Vaccine: unknown Date of Influenza Vaccine: unk Hx Pertussis Vaccination: No Immunizations Up to Date: Unable to Obtain/Confirm Infectious Disease History: Yes Infectious Disease History: Reports: Hx of Known/Suspected MRSA - per pt. Denies: Traveled Outside the [place] in Last 30 Days - Family History Known Family History: Positive: Unknown, Cardiac Disease, Hypertension, Diabetes - Social History Occupation: Employed Full-time Lives: Alone Alcohol Use: Rare Hx Substance Use: No Substance Use Type: Reports: None Hx Tobacco Use: Yes Smoking Status (MU): Former Smoker Review of Systems Constitutional: Negative Negative: Fever, Chills, Fatigue, Skin Diaphoresis Eyes: Negative Positive: Palpitations Positive: Shortness Of Breath Genitourinary: Negative Positive: no symptoms reported, see HPI Neurological: Negative Positive: Anxious All Other Systems Reviewed And Are Negative: Yes Physical Exam Triage Information Reviewed: Yes Vital Signs On Initial Exam: Initial Vitals Temp Pulse Resp BP Pulse Ox 98.3 F 103 18 162/100 99 09/20/17 21:53 09/20/17 21:53 09/20/17 21:53 09/20/17 21:53 09/20/17 21:53 Vital Signs Reviewed: Yes Appearance: Positive: Well-Appearing, Well-Nourished Skin: Positive: Warm, Skin Color Reflects Adequate Perfusion Head/Face: Positive: Normal Head/Face Inspection Eyes: Positive: EOMI, VENU, Conjunctiva Clear Neck: Positive: Supple, Nontender, No Lymphadenopathy Respiratory/Lung Sounds: Positive: Clear to Auscultation, Breath Sounds Present Cardiovascular: Positive: RRR, Pulses are Symmetrical in both Upper and Lower Extremities Musculoskeletal: Positive: Normal, Strength/ROM Intact Neurological: Positive: Normal, Sensory/Motor Intact, Speech Normal Psychiatric: Positive: Anxious AVPU Assessment: Alert Diagnostics - Vital Signs Vital Signs Temp Pulse Resp BP Pulse Ox 09/20/17 23:38 97.4 F 89 15 131/91 96 09/20/17 23:30 89 15 131/91 96 09/20/17 23:03 16 09/20/17 23:00 94 25 131/91 98 09/20/17 22:34 91 7 148/84 100 09/20/17 22:32 97 98 09/20/17 21:53 98.3 F 103 18 162/100 99 - Laboratory Lab Statement: Any lab studies that have been ordered have been reviewed, and results considered in the medical decision making process. Course/Dx - Course Course Of Treatment: During the course of treatment, the patient is evaluated for her palpitations versus anxiety versus other etiology. I have discussed with patient at length the symptoms related to anxiety and how they are able to mimic cardiac symptoms. Previous visits show full workups of cardiac history with negative results. I have discussed this with the patient and have offered an Ativan to assess for improvement. Patient is okay with this. EKG obtained and she continues on heart monitor during her stay. EKG shows normal sinus rhythm. She is feeling much improved after 1 Ativan. She has his medication at home. I've advised her to return to her PCP for follow-up of her anxiety symptoms. She agrees. I discussed with her at length decompression and antianxiety activities. - Diagnoses Provider Diagnoses: Anxiety Discharge - Sign-Out/Discharge Documenting (check all that apply): Discharge - Discharge Plan Condition: Stable Disposition: HOME Patient Education Materials: Anxiety (ED) Referrals: Kostas Baeza MD [Primary Care Provider] - Additional Instructions: Please follow up with your PCP about your symptoms If you develop any anxiety symptoms, take one of your .5mg lorazepam medications As discussed, I do not feel this is cardiac related, but instead an anxiety disorder Try to destress where you can counseling, massage, working less, deep breaths and exercise are all good options. - Billing Disposition and Condition Condition: STABLE Disposition: HOME
== END 2017-09-20 23:38 | disposition home or self-care (01) ==
LOC: ED 21:49
DX: F41.9 Anxiety disorder, unspecified (principal); R00.2 Palpitations; Z88.1 Allergy status to other antibiotic agents; R06.02 Shortness of breath; Z87.891 Personal history of nicotine dependence
CPT/HCPCS: 93005; 99282; A9270-GY

== ENCOUNTER 2017-10-10 18:20 | Emergency (ER) | payer OTHER ==
[2017-10-10 18:30] VITALS: BP 136/92
== END 2017-10-10 20:35 | disposition left against medical advice (07) ==
LOC: ED 18:20
DX: K21.9 Gastro-esophageal reflux disease without esophagitis (principal); Z53.21 Procedure and treatment not carried out due to patient leaving prior to being seen by health care provider
CPT/HCPCS: 93005; 99282

== ENCOUNTER 2018-04-05 18:55 | Observation (INO) | payer OTHER ==
[2018-04-05 20:49] LABS: ABS Basophils 0 10^3/ul (0-0.2); ABS Eosinophils 0.2 10^3/ul (0-0.6); ABS Lymphocytes 2.4 10^3/ul (1.0-4.8); ABS Monocytes 0.5 10^3/ul (0-0.8); ABS Neutrophils 3.9 10^3/ul (1.5-7.7); ABS Nucleated RBC 0 10^3/ul; Eosinophil % 3.2 % (0-6); Hematocrit 41 % (35-47); Hemoglobin 13.7 g/dl (12.0-16.0); Lymphocyte % 34.2 % (25-47); Mean Corpuscular HGB Conc 34 g/dl (31-36); Mean Corpuscular Hemoglobin 31 pg (27-31); Mean Corpuscular Volume 92 fL (80-97); Mean Platelet Volume 9.2 um3 (7.4-10.4); Nucleated Red Blood Cells % 0.1; Platelet Count 214 10^3/ul (150-450); Red Blood Count 4.42 10^6/ul (4.00-5.40); Red Cell Distribution Width 14 % (10.5-15); White Blood Count 7.1 10^3/ul (3.5-10.8)
[2018-04-05 21:00] LABS: INR 0.94 (0.77-1.02)
[2018-04-05 21:07] LABS: EGFR Non-African American 72.9 (>60)
--- NOTE | 2018-04-05 21:11 | ED ---
HPI Chest Pain - HPI Summary HPI Summary: Pt is a 52 y/o female who presents to the ED c/o CP. She states the pain began 3 days ago, is sharp, and intermittent. The pain is usually located in her left chest, but sometimes is in the right side. Pt denies any SOB or dizziness. She initially thought the pain was due to gas. Movement makes the pain worse. She also c/o palpitations and anxiety. Pt has recently been under stress because her sister . One year ago she had a stress test done due to similar sharp CP. - History of Current Complaint Chief Complaint: EDChestWallPain Time Seen by Provider: 04/05/18 20:05 Hx Obtained From: Patient Onset/Duration: Started Days Ago - 3 Timing: Intermittent Current Severity: None Pain Intensity: 0 Pain Scale Used: 0-10 Numeric Character: Sharp/Stabbing Aggravating Factor(s): Movement Associated Signs and Symptoms: Positive: Chest Pain, Palpitations Related History: Similar Episode/Dx as: - 1 year ago - Allergy/Home Medications Allergies/Adverse Reactions: Allergies Allergy/AdvReac Type Severity Reaction Status Date / Time clarithromycin [From Biaxin] Allergy Rash Verified 09/10/17 20:12 Home Medications: Home Medications ALPRAZolam [Xanax] 0.5 mg PO TID PRN 04/05/18 [History Confirmed 04/05/18] PMH/Surg Hx/FS Hx/Imm Hx Endocrine/Hematology History: Reports: Other Endocrine/Hematological Disorders - Hx Low potassium Denies: Hx Diabetes Cardiovascular History: Reports: Hx Angina - pressure, Hx Hypertension Denies: Hx Pacemaker/ICD Respiratory History: Reports: Hx Asthma GI History: Reports: Hx Gastroesophageal Reflux Disease, Other GI Disorders - Hemorrhoids History: Reports: Other Problems/Disorders - Hx UTI Denies: Hx Dialysis, Hx Renal Disease Musculoskeletal History: Reports: Other Musculoskeletal History - herniated disc in lower back & in neck Sensory History: Reports: Hx Contacts or Glasses Denies: Hx Hearing Aid Opthamlomology History: Reports: Hx Contacts or Glasses Psychiatric History: Reports: Hx Anxiety Denies: Hx Panic Disorder - Surgical History Surgery Procedure, Year, and Place: HYSTERECTOMY, CSECTIONS - Immunization History Date of Tetanus Vaccine: unknown Date of Influenza Vaccine: unk Infectious Disease History: No Infectious Disease History: Reports: Hx of Known/Suspected MRSA - per pt., Traveled Outside the [place] in Last 30 Days - Family History Known Family History: Positive: Cardiac Disease, Hypertension, Diabetes - Social History Alcohol Use: Rare Hx Substance Use: No Substance Use Type: Reports: None Hx Tobacco Use: Yes Smoking Status (MU): Former Smoker Review of Systems Positive: Palpitations, Chest Pain Negative: Shortness Of Breath Neurological: Other - NEGATIVE: dizziness Positive: Anxious All Other Systems Reviewed And Are Negative: Yes Physical Exam - Summary Physical Exam Summary: VITAL SIGNS: Reviewed. GENERAL: Patient is a well-developed and nourished FEMALE who is lying comfortable in the stretcher. Patient is not in any acute respiratory distress. HEAD AND FACE: No signs of trauma. No ecchymosis, hematomas or skull depressions. No sinus tenderness. EYES: PERRLA, EOMI x 2, No injected conjunctiva, no nystagmus. EARS: Hearing grossly intact. Ear canals and tympanic membranes are within normal limits. MOUTH: Oropharynx within normal limits. NECK: Supple, trachea is midline, no adenopathy, no JVD, no carotid bruit, no c- spine tenderness, neck with full ROM. CHEST: Symmetric, no tenderness at palpation LUNGS: Clear to auscultation bilaterally. No wheezing or crackles. CVS: Regular rate and rhythm, S1 and S2 present, no murmurs or gallops appreciated. ABDOMEN: Soft, non-tender. No signs of distention. No rebound no guarding, and no masses palpated. Bowel sounds are normal. EXTREMITIES: FROM in all major joints, no edema, no cyanosis or clubbing. NEURO: Alert and oriented x 3. No acute neurological deficits. Speech is normal and follows commands. SKIN: Dry and warm Triage Information Reviewed: Yes Vital Signs On Initial Exam: Initial Vitals Temp Pulse Resp BP Pulse Ox 97.5 F 80 18 137/90 100 04/05/18 19:15 04/05/18 19:15 04/05/18 19:15 04/05/18 19:15 04/05/18 19:15 Vital Signs Reviewed: Yes Diagnostics - Vital Signs Vital Signs Temp Pulse Resp BP Pulse Ox 04/05/18 20:32 79 19 139/94 96 04/05/18 20:02 84 13 126/83 98 04/05/18 20:01 79 13 98 10/12/18 19:15 97.5 F 80 18 137/90 100 - Laboratory Lab Results: Lab Results 04/05/18 04/05/18 04/05/18 Range/Units 20:42 20:42 20:42 WBC 7.1 (3.5-10.8) 10^3/ul RBC 4.42 (4.00-5.40) 10^6/ul Hgb 13.7 (12.0-16.0) g/dl Hct 41 (35-47) % MCV 92 (80-97) fL MCH 31 (27-31) pg MCHC 34 (31-36) g/dl RDW 14 (10.5-15) % Plt Count 214 (150-450) 10^3/ul MPV 9.2 (7.4-10.4) um3 Neut % (Auto) 55.2 (38-83) % Lymph % (Auto) 34.2 (25-47) % Mccreary % (Auto) 7.1 H (0-7) % Eos % (Auto) 3.2 (0-6) % Baso % (Auto) 0.3 (0-2) % Absolute Neuts (auto) 3.9 (1.5-7.7) 10^3/ul Absolute Lymphs (auto) 2.4 (1.0-4.8) 10^3/ul Absolute Monos (auto) 0.5 (0-0.8) 10^3/ul Absolute Eos (auto) 0.2 (0-0.6) 10^3/ul Absolute Basos (auto) 0 (0-0.2) 10^3/ul Absolute Nucleated RBC 0 10^3/ul Nucleated RBC % 0.1 INR (Anticoag Therapy) (0.77-1.02) APTT (26.0-36.3) seconds D-Dimer, Quantitative (Less Than 230) ng/mL Sodium 140 (135-145) mmol/L Potassium 3.5 (3.5-5.0) mmol/L Chloride 105 (101-111) mmol/L Carbon Dioxide 31 (22-32) mmol/L Anion Gap 4 (2-11) mmol/L BUN 15 (6-24) mg/dL Creatinine 0.82 (0.51-0.95) mg/dL Est GFR ( Amer) 88.2 (>60) Est GFR (Non-Af Amer) 72.9 (>60) BUN/Creatinine Ratio 18.3 (8-20) Glucose 96 (70-100) mg/dL Lactic Acid 0.5 (0.5-2.0) mmol/L Calcium 9.6 (8.6-10.3) mg/dL Total Bilirubin 0.40 (0.2-1.0) mg/dL AST 13 (13-39) U/L ALT 6 L (7-52) U/L Alkaline Phosphatase 67 (34-104) U/L Troponin I Pending Total Protein 6.9 (6.4-8.9) g/dL Albumin 4.0 (3.2-5.2) g/dL Globulin 2.9 (2-4) g/dL Albumin/Globulin Ratio 1.4 (1-3) 04/05/18 Range/Units 20:42 WBC (3.5-10.8) 10^3/ul RBC (4.00-5.40) 10^6/ul Hgb (12.0-16.0) g/dl Hct (35-47) % MCV (80-97) fL MCH (27-31) pg MCHC (31-36) g/dl RDW (10.5-15) % Plt Count (150-450) 10^3/ul MPV (7.4-10.4) um3 Neut % (Auto) (38-83) % Lymph % (Auto) (25-47) % Mccreary % (Auto) (0-7) % Eos % (Auto) (0-6) % Baso % (Auto) (0-2) % Absolute Neuts (auto) (1.5-7.7) 10^3/ul Absolute Lymphs (auto) (1.0-4.8) 10^3/ul Absolute Monos (auto) (0-0.8) 10^3/ul Absolute Eos (auto) (0-0.6) 10^3/ul Absolute Basos (auto) (0-0.2) 10^3/ul Absolute Nucleated RBC 10^3/ul Nucleated RBC % INR (Anticoag Therapy) 0.94 (0.77-1.02) APTT 32.9 (26.0-36.3) seconds D-Dimer, Quantitative < 200 (Less Than 230) ng/mL Sodium (135-145) mmol/L Potassium (3.5-5.0) mmol/L Chloride (101-111) mmol/L Carbon Dioxide (22-32) mmol/L Anion Gap (2-11) mmol/L BUN (6-24) mg/dL Creatinine (0.51-0.95) mg/dL Est GFR ( Amer) (>60) Est GFR (Non-Af Amer) (>60) BUN/Creatinine Ratio (8-20) Glucose (70-100) mg/dL Lactic Acid (0.5-2.0) mmol/L Calcium (8.6-10.3) mg/dL Total Bilirubin (0.2-1.0) mg/dL AST (13-39) U/L ALT (7-52) U/L Alkaline Phosphatase (34-104) U/L Troponin I Total Protein (6.4-8.9) g/dL Albumin (3.2-5.2) g/dL Globulin (2-4) g/dL Albumin/Globulin Ratio (1-3) Result Diagrams: 04/05/18 20:42 04/05/18 20:42 Lab Statement: Any lab studies that have been ordered have been reviewed, and results considered in the medical decision making process. - Radiology CXR Xray Interpretation: No Acute Changes - No acute process. Pending official radiology report. Radiology Interpretation Completed By: ED Physician - EKG 20:34 Cardiac Rate: NL - 70 bpm EKG Rhythm: Sinus Rhythm EKG Interpretation: Non-specific T wave changes in inferior leads Re-Evaluation - Re-Evaluation First Eval Re-Evaluation Time: 21:35 Change: Improved Comment: Pt is CP free. Second Eval Re-Evaluation Time: 21:30 Change: Unchanged Comment: Spoke to toilet and laundry soap supervisor Macie about pending admission. Chest Pain Course/Dx - Course Assessment/Plan: Pt is a 52 y/o female who presents to the ED c/o CP. She states the pain began 3 days ago, is sharp, and intermittent. The pain is usually located in her left chest, but sometimes is in the right side. Pt denies any SOB or dizziness. She initially thought the pain was due to gas. Movement makes the pain worse. She also c/o palpitations and anxiety. Pt has recently been under stress because her sister . One year ago she had a stress test done due to similar sharp CP. A physical exam was normal. A CXR was negative. An EKG revealed normal rate of 70 bpm, and non-specific T wave changes in inferior leads. Final dx is non-STEMI. Pt will be admitted to Dr. Saldivar. - Diagnoses Provider Diagnoses: Non-STEMI (non-ST elevated myocardial infarction) - Provider Notifications Discussed Care Of Patient With: Kennedi Saldivar Time Discussed With Above Provider: 22:05 Instructed by Provider To: Admit As Inpatient Discharge - Sign-Out/Discharge Documenting (check all that apply): Patient Departure - Admit - Discharge Plan Condition: Stable Disposition: ADMITTED TO [facility] - Billing Disposition and Condition Condition: STABLE Disposition: Admitted to [facility] - Attestation Statements Document Initiated by Scribe: Yes Documenting Scribe: Sherlyn Floyd Provider For Whom Scribe is Documenting (Include Credential): Gus Carmona MD Scribe Attestation: Sherlyn Up scribed for Gus Carmona MD on 04/06/18 at 0623. Scribe Documentation Reviewed: Yes Provider Attestation: The documentation as recorded by the jaidenibSherlyn azul accurately reflects the service I personally performed and the decisions made by Eugene glass MD
[2018-04-05] MEDS ORDERED: Aspirin 81 mg CHEW TAB* 81 MG TAB.CHEW PO ONE (21:26)
[2018-04-05] MEDS ORDERED: Clopidogrel TAB* 300 MG PO ONE (21:27)
[2018-04-05] MEDS ORDERED: Enoxaparin(*) 100 MG/ML SYR SUBCUT ONE (21:27)
[2018-04-05] MEDS ORDERED: Metoprolol Tartrate TAB* 25 MG PO ONE (21:29)
--- NOTE | 2018-04-05 22:49 | ADMNOTE ---
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 pain decribed as sudden onset of sharp pain moving from her right side to left side, intensity 7-8/10 associated sweating. pt had this type of pain for three days but it has been localized on the left anterior chest, intermittant for the past three days. she thought it was gas and would go away on its own---> did not and decided to come here for eval---> her initial ekg did not reveal acute change but trop was 0.21. got one dose of asa 325 mg + plavix 300 mg + lovenox 100 mg sub from er ---> chest pain when seen by this typewriters functional tester. pt had stress test done did not reveal any acute sig reversible ischemia Family History: Findings - htn/dm/cva Social History: Findings - quit cig 22 yrs ago occ etoh walks indep no ivda Past Medical History: Findings - phx morbid obesity htn cad chronic lbp gerd anxeity/depression pshx s/p c sections s/p hysterectomy Review of Systems - Measurements Intake and Output: Intake and Output Last 24 Hours 04/03/18 04/04/18 04/05/18 04/06/18 06:59 06:59 06:59 06:59 Weight 235 lb - Review of Systems General Comments: 06/05 ros went over with pt please refer to hpi Objective Vital Signs - 8 hr 04/05/18 04/05/18 04/05/18 19:15 20:01 20:02 Temperature 97.5 F Pulse Rate 80 79 84 Respiratory 18 13 13 Rate Blood Pressure 137/90 126/83 (mmHg) O2 Sat by Pulse 100 98 98 Oximetry 04/05/18 20:32 Temperature Pulse Rate 79 Respiratory 19 Rate Blood Pressure 139/94 (mmHg) O2 Sat by Pulse 96 Oximetry Eyes: No Scleral Icterus, PERRLA Ears/Nose/Mouth/Throat: NL Teeth, Lips, Gums, Clear Oropharnyx, Mucous Membranes Moist Neck: NL Appearance and Movements; NL JVP, Trachea Midline, No Thyroid Enlargement, Masses Respiratory: Symmetrical Chest Expansion and Respiratory Effort, Clear to Auscultation Cardiovascular: NL Sounds; No Murmurs; No JVD, RRR, No Edema Abdominal: NL Sounds; No Tenderness; No Distention Extremities: No Edema, - - able to raise ue and le against gravity Skin: No Rash or Ulcers Neurological: Alert and Oriented x 3, NL Sensation, NL Muscle Strength and Tone Result Diagrams: 04/06/18 07:59 04/06/18 07:59 Additional Lab and Data: Lab Results 04/05/18 04/05/18 04/05/18 Range/Units 20:42 20:42 20:42 WBC 7.1 (3.5-10.8) 10^3/ul RBC 4.42 (4.00-5.40) 10^6/ul Hgb 13.7 (12.0-16.0) g/dl Hct 41 (35-47) % MCV 92 (80-97) fL MCH 31 (27-31) pg MCHC 34 (31-36) g/dl RDW 14 (10.5-15) % Plt Count 214 (150-450) 10^3/ul MPV 9.2 (7.4-10.4) um3 Neut % (Auto) 55.2 (38-83) % Lymph % (Auto) 34.2 (25-47) % [place] % (Auto) 7.1 H (0-7) % Eos % (Auto) 3.2 (0-6) % Baso % (Auto) 0.3 (0-2) % Absolute Neuts (auto) 3.9 (1.5-7.7) 10^3/ul Absolute Lymphs (auto) 2.4 (1.0-4.8) 10^3/ul Absolute Monos (auto) 0.5 (0-0.8) 10^3/ul Absolute Eos (auto) 0.2 (0-0.6) 10^3/ul Absolute Basos (auto) 0 (0-0.2) 10^3/ul Absolute Nucleated RBC 0 10^3/ul Nucleated RBC % 0.1 INR (Anticoag Therapy) (0.77-1.02) APTT (26.0-36.3) seconds D-Dimer, Quantitative (Less Than 230) ng/mL Sodium 140 (135-145) mmol/L Potassium 3.5 (3.5-5.0) mmol/L Chloride 105 (101-111) mmol/L Carbon Dioxide 31 (22-32) mmol/L Anion Gap 4 (2-11) mmol/L BUN 15 (6-24) mg/dL Creatinine 0.82 (0.51-0.95) mg/dL Est GFR ( Amer) 88.2 (>60) Est GFR (Non-Af Amer) 72.9 (>60) BUN/Creatinine Ratio 18.3 (8-20) Glucose 96 (70-100) mg/dL Lactic Acid 0.5 (0.5-2.0) mmol/L Calcium 9.6 (8.6-10.3) mg/dL Total Bilirubin 0.40 (0.2-1.0) mg/dL AST 13 (13-39) U/L ALT 6 L (7-52) U/L Alkaline Phosphatase 67 (34-104) U/L Troponin I Pending Total Protein 6.9 (6.4-8.9) g/dL Albumin 4.0 (3.2-5.2) g/dL Globulin 2.9 (2-4) g/dL Albumin/Globulin Ratio 1.4 (1-3) 04/05/18 Range/Units 20:42 WBC (3.5-10.8) 10^3/ul RBC (4.00-5.40) 10^6/ul Hgb (12.0-16.0) g/dl Hct (35-47) % MCV (80-97) fL MCH (27-31) pg MCHC (31-36) g/dl RDW (10.5-15) % Plt Count (150-450) 10^3/ul MPV (7.4-10.4) um3 Neut % (Auto) (38-83) % Lymph % (Auto) (25-47) % [place] % (Auto) (0-7) % Eos % (Auto) (0-6) % Baso % (Auto) (0-2) % Absolute Neuts (auto) (1.5-7.7) 10^3/ul Absolute Lymphs (auto) (1.0-4.8) 10^3/ul Absolute Monos (auto) (0-0.8) 10^3/ul Absolute Eos (auto) (0-0.6) 10^3/ul Absolute Basos (auto) (0-0.2) 10^3/ul Absolute Nucleated RBC 10^3/ul Nucleated RBC % INR (Anticoag Therapy) 0.94 (0.77-1.02) APTT 32.9 (26.0-36.3) seconds D-Dimer, Quantitative < 200 (Less Than 230) ng/mL Sodium (135-145) mmol/L Potassium (3.5-5.0) mmol/L Chloride (101-111) mmol/L Carbon Dioxide (22-32) mmol/L Anion Gap (2-11) mmol/L BUN (6-24) mg/dL Creatinine (0.51-0.95) mg/dL Est GFR ( Amer) (>60) Est GFR (Non-Af Amer) (>60) BUN/Creatinine Ratio (8-20) Glucose (70-100) mg/dL Lactic Acid (0.5-2.0) mmol/L Calcium (8.6-10.3) mg/dL Total Bilirubin (0.2-1.0) mg/dL AST (13-39) U/L ALT (7-52) U/L Alkaline Phosphatase (34-104) U/L Troponin I Total Protein (6.4-8.9) g/dL Albumin (3.2-5.2) g/dL Globulin (2-4) g/dL Albumin/Globulin Ratio (1-3) EKG Data: ekg ns no acute st t change seen Assess/Plan/Problems-Billing Assessment: 52 yr old aa female with ? cad hx presented to er with cp for the past 3 days with sweating. pt was ruled in for non st t elevation mi - Patient Problems (1) Non-ST elevation myocardial infarction (NSTEMI) greater than 8 weeks ago Status: Acute Code(s): I25.2 - OLD MYOCARDIAL INFARCTION SNOMED Code(s): 862660588 Comment: tele with juan trop q 3 hrs got a dose of asa/plavix and lovenox theraputic dose will ask cardio to see pt in am npo except meds ?? the need of cardio eval pending upon trop trends (2) HTN (hypertension) Status: Acute Code(s): I10 - ESSENTIAL (PRIMARY) HYPERTENSION SNOMED Code(s) : 65171571 Comment: stable continue outpt meds except hctz/triameterene (3) Morbid obesity Status: Acute Code(s): E66.01 - MORBID (SEVERE) OBESITY DUE TO EXCESS CALORIES SNOMED Code(s): 248781465 Comment: ck a1c (4) GERD (gastroesophageal reflux disease) Status: Acute Code(s): K21.9 - GASTRO-ESOPHAGEAL REFLUX DISEASE WITHOUT ESOPHAGITIS SNOMED Code(s): 522914345 Comment: stable continue current mgt (5) Hx of low back pain Status: Acute Code(s): Z87.39 - PERSONAL HISTORY OF DISEASES OF THE MS SYS AND CONN TISS SNOMED Code(s): 410081877 Comment: stable did not mention any pain continue outpt meds (6) Mood disorder Status: Acute Code(s): F39 - UNSPECIFIED MOOD [AFFECTIVE] DISORDER SNOMED Code(s): 76437180 Comment: stable continue outpt meds
[2018-04-05] MEDS ORDERED: Albuterol 2.5 MG/3 ML NEB.SOL* (0.083%) INH PRN (23:33)
[2018-04-05] MEDS ORDERED: Acetaminophen TAB* 325 MG PO PRN (23:33)
[2018-04-05] MEDS ORDERED: ALPRAZolam TAB* 0.5 MG PO PRN (23:40)
[2018-04-05] MEDS ORDERED: Enoxaparin(*) 40 MG/0.4 ML SYR SUBCUT SCH (23:45)
--- NOTE | 2018-04-06 00:45 | ADMNOTE ---
Review of Systems - Measurements Intake and Output: Intake and Output Last 24 Hours 04/03/18 04/04/18 04/05/18 04/06/18 06:59 06:59 06:59 06:59 Weight 235 lb Objective Active Medications: Acetaminophen (Tylenol Tab*) 650 mg PO Q4H PRN PRN Reason: FEVER/PAIN Albuterol (Ventolin 2.5 Mg/3 Ml Neb.Natalia*) 2.5 mg INH [id number] AWAKE PRN PRN Reason: sob/wheezing Alprazolam (Xanax Tab*) 0.5 mg PO TID PRN PRN Reason: ANXIETY Aspirin (Ecotrin Ec Tab*) 325 mg PO DAILY [facility] Clopidogrel Bisulfate (Plavix Tab*) 75 mg PO DAILY [facility] Enoxaparin Sodium (Lovenox(*)) 110 mg SUBCUT Q12H [facility] Last Admin: 04/06/18 00:35 Dose: Not Given Sodium Chloride (Ns 0.9% 1000 Ml*) 1,000 mls @ 125 mls/hr IV Q1H [facility] Stop: 04/06/18 01:44 Lisinopril (Prinivil Tab*) 20 mg PO BID [facility] Metoprolol Succinate (Toprol Xl Tab*) 50 mg PO DAILY [facility] Omeprazole (Prilosec Cap*) 40 mg PO DAILY [facility] Pantoprazole Sodium (Protonix Tab (Nf)) 40 mg PO DAILY [facility] Potassium Chloride (Klor Con Er Tab*) 30 meq PO BID [facility] Triamterene/HCTZ (Dyazide Cap*) 1 cap PO 2100 [facility] Vital Signs - 8 hr 04/05/18 04/05/18 04/05/18 19:15 20:01 20:02 Temperature 97.5 F Pulse Rate 80 79 84 Respiratory 18 13 13 Rate Blood Pressure 137/90 126/83 (mmHg) O2 Sat by Pulse 100 98 98 Oximetry 04/05/18 04/05/18 04/05/18 20:32 21:00 21:02 Temperature Pulse Rate 79 72 73 Respiratory 19 17 10 Rate Blood Pressure 139/94 133/89 (mmHg) O2 Sat by Pulse 96 97 98 Oximetry 04/05/18 04/05/18 04/05/18 21:32 22:00 22:02 Temperature Pulse Rate 68 77 76 Respiratory 18 23 14 Rate Blood Pressure 139/94 164/101 (mmHg) O2 Sat by Pulse 97 100 99 Oximetry 04/05/18 04/05/18 04/05/18 22:32 23:00 23:02 Temperature Pulse Rate 87 72 72 Respiratory 27 13 15 Rate Blood Pressure 153/107 154/94 (mmHg) O2 Sat by Pulse 98 96 99 Oximetry Result Diagrams: 04/05/18 20:42 04/05/18 20:42 Additional Lab and Data: Lab Results 04/05/18 04/05/18 04/05/18 Range/Units 20:42 20:42 20:42 WBC 7.1 (3.5-10.8) 10^3/ul RBC 4.42 (4.00-5.40) 10^6/ul Hgb 13.7 (12.0-16.0) g/dl Hct 41 (35-47) % MCV 92 (80-97) fL MCH 31 (27-31) pg MCHC 34 (31-36) g/dl RDW 14 (10.5-15) % Plt Count 214 (150-450) 10^3/ul MPV 9.2 (7.4-10.4) um3 Neut % (Auto) 55.2 (38-83) % Lymph % (Auto) 34.2 (25-47) % [place] % (Auto) 7.1 H (0-7) % Eos % (Auto) 3.2 (0-6) % Baso % (Auto) 0.3 (0-2) % Absolute Neuts (auto) 3.9 (1.5-7.7) 10^3/ul Absolute Lymphs (auto) 2.4 (1.0-4.8) 10^3/ul Absolute Monos (auto) 0.5 (0-0.8) 10^3/ul Absolute Eos (auto) 0.2 (0-0.6) 10^3/ul Absolute Basos (auto) 0 (0-0.2) 10^3/ul Absolute Nucleated RBC 0 10^3/ul Nucleated RBC % 0.1 INR (Anticoag Therapy) (0.77-1.02) APTT (26.0-36.3) seconds D-Dimer, Quantitative (Less Than 230) ng/mL Sodium 140 (135-145) mmol/L Potassium 3.5 (3.5-5.0) mmol/L Chloride 105 (101-111) mmol/L Carbon Dioxide 31 (22-32) mmol/L Anion Gap 4 (2-11) mmol/L BUN 15 (6-24) mg/dL Creatinine 0.82 (0.51-0.95) mg/dL Est GFR ( Amer) 88.2 (>60) Est GFR (Non-Af Amer) 72.9 (>60) BUN/Creatinine Ratio 18.3 (8-20) Glucose 96 (70-100) mg/dL Lactic Acid 0.5 (0.5-2.0) mmol/L Calcium 9.6 (8.6-10.3) mg/dL Total Bilirubin 0.40 (0.2-1.0) mg/dL AST 13 (13-39) U/L ALT 6 L (7-52) U/L Alkaline Phosphatase 67 (34-104) U/L Troponin I Pending Total Protein 6.9 (6.4-8.9) g/dL Albumin 4.0 (3.2-5.2) g/dL Globulin 2.9 (2-4) g/dL Albumin/Globulin Ratio 1.4 (1-3) 04/05/18 Range/Units 20:42 WBC (3.5-10.8) 10^3/ul RBC (4.00-5.40) 10^6/ul Hgb (12.0-16.0) g/dl Hct (35-47) % MCV (80-97) fL MCH (27-31) pg MCHC (31-36) g/dl RDW (10.5-15) % Plt Count (150-450) 10^3/ul MPV (7.4-10.4) um3 Neut % (Auto) (38-83) % Lymph % (Auto) (25-47) % [place] % (Auto) (0-7) % Eos % (Auto) (0-6) % Baso % (Auto) (0-2) % Absolute Neuts (auto) (1.5-7.7) 10^3/ul Absolute Lymphs (auto) (1.0-4.8) 10^3/ul Absolute Monos (auto) (0-0.8) 10^3/ul Absolute Eos (auto) (0-0.6) 10^3/ul Absolute Basos (auto) (0-0.2) 10^3/ul Absolute Nucleated RBC 10^3/ul Nucleated RBC % INR (Anticoag Therapy) 0.94 (0.77-1.02) APTT 32.9 (26.0-36.3) seconds D-Dimer, Quantitative < 200 (Less Than 230) ng/mL Sodium (135-145) mmol/L Potassium (3.5-5.0) mmol/L Chloride (101-111) mmol/L Carbon Dioxide (22-32) mmol/L Anion Gap (2-11) mmol/L BUN (6-24) mg/dL Creatinine (0.51-0.95) mg/dL Est GFR ( Amer) (>60) Est GFR (Non-Af Amer) (>60) BUN/Creatinine Ratio (8-20) Glucose (70-100) mg/dL Lactic Acid (0.5-2.0) mmol/L Calcium (8.6-10.3) mg/dL Total Bilirubin (0.2-1.0) mg/dL AST (13-39) U/L ALT (7-52) U/L Alkaline Phosphatase (34-104) U/L Troponin I Total Protein (6.4-8.9) g/dL Albumin (3.2-5.2) g/dL Globulin (2-4) g/dL Albumin/Globulin Ratio (1-3) Assess/Plan/Problems-Billing Assessment:
[2018-04-06] MEDS ORDERED: Enoxaparin(*) 100 MG/ML SYR SUBCUT SCH (01:05)
--- NOTE | 2018-04-06 01:10 | ADMNOTE ---
Subjective Date of Service: 04/05/18 Review of Systems - Measurements Intake and Output: Intake and Output Last 24 Hours 04/03/18 04/04/18 04/05/18 04/06/18 06:59 06:59 06:59 06:59 Weight 235 lb Objective Active Medications: Acetaminophen (Tylenol Tab*) 650 mg PO Q4H PRN PRN Reason: FEVER/PAIN Albuterol (Ventolin 2.5 Mg/3 Ml Neb.Natalia*) 2.5 mg INH [id number] AWAKE PRN PRN Reason: sob/wheezing Alprazolam (Xanax Tab*) 0.5 mg PO TID PRN PRN Reason: ANXIETY Aspirin (Ecotrin Ec Tab*) 325 mg PO DAILY [facility] Clopidogrel Bisulfate (Plavix Tab*) 75 mg PO DAILY [facility] Enoxaparin Sodium (Lovenox(*)) 110 mg SUBCUT Q12H [facility] Last Admin: 04/06/18 00:35 Dose: Not Given Sodium Chloride (Ns 0.9% 1000 Ml*) 1,000 mls @ 125 mls/hr IV Q1H [facility] Stop: 04/06/18 01:44 Lisinopril (Prinivil Tab*) 20 mg PO BID [facility] Metoprolol Succinate (Toprol Xl Tab*) 50 mg PO DAILY [facility] Omeprazole (Prilosec Cap*) 40 mg PO DAILY [facility] Pantoprazole Sodium (Protonix Tab (Nf)) 40 mg PO DAILY [facility] Potassium Chloride (Klor Con Er Tab*) 30 meq PO BID [facility] Triamterene/HCTZ (Dyazide Cap*) 1 cap PO 2100 [facility] Vital Signs - 8 hr 04/05/18 04/05/18 04/05/18 19:15 20:01 20:02 Temperature 97.5 F Pulse Rate 80 79 84 Respiratory 18 13 13 Rate Blood Pressure 137/90 126/83 (mmHg) O2 Sat by Pulse 100 98 98 Oximetry 04/05/18 04/05/18 04/05/18 20:32 21:00 21:02 Temperature Pulse Rate 79 72 73 Respiratory 19 17 10 Rate Blood Pressure 139/94 133/89 (mmHg) O2 Sat by Pulse 96 97 98 Oximetry 04/05/18 04/05/18 04/05/18 21:32 22:00 22:02 Temperature Pulse Rate 68 77 76 Respiratory 18 23 14 Rate Blood Pressure 139/94 164/101 (mmHg) O2 Sat by Pulse 97 100 99 Oximetry 04/05/18 04/05/18 04/05/18 22:32 23:00 23:02 Temperature Pulse Rate 87 72 72 Respiratory 27 13 15 Rate Blood Pressure 153/107 154/94 (mmHg) O2 Sat by Pulse 98 96 99 Oximetry Result Diagrams: 04/06/18 07:59 04/06/18 07:59 Additional Lab and Data: Lab Results 04/05/18 04/05/18 04/05/18 Range/Units 20:42 20:42 20:42 WBC 7.1 (3.5-10.8) 10^3/ul RBC 4.42 (4.00-5.40) 10^6/ul Hgb 13.7 (12.0-16.0) g/dl Hct 41 (35-47) % MCV 92 (80-97) fL MCH 31 (27-31) pg MCHC 34 (31-36) g/dl RDW 14 (10.5-15) % Plt Count 214 (150-450) 10^3/ul MPV 9.2 (7.4-10.4) um3 Neut % (Auto) 55.2 (38-83) % Lymph % (Auto) 34.2 (25-47) % [place] % (Auto) 7.1 H (0-7) % Eos % (Auto) 3.2 (0-6) % Baso % (Auto) 0.3 (0-2) % Absolute Neuts (auto) 3.9 (1.5-7.7) 10^3/ul Absolute Lymphs (auto) 2.4 (1.0-4.8) 10^3/ul Absolute Monos (auto) 0.5 (0-0.8) 10^3/ul Absolute Eos (auto) 0.2 (0-0.6) 10^3/ul Absolute Basos (auto) 0 (0-0.2) 10^3/ul Absolute Nucleated RBC 0 10^3/ul Nucleated RBC % 0.1 INR (Anticoag Therapy) (0.77-1.02) APTT (26.0-36.3) seconds D-Dimer, Quantitative (Less Than 230) ng/mL Sodium 140 (135-145) mmol/L Potassium 3.5 (3.5-5.0) mmol/L Chloride 105 (101-111) mmol/L Carbon Dioxide 31 (22-32) mmol/L Anion Gap 4 (2-11) mmol/L BUN 15 (6-24) mg/dL Creatinine 0.82 (0.51-0.95) mg/dL Est GFR ( Amer) 88.2 (>60) Est GFR (Non-Af Amer) 72.9 (>60) BUN/Creatinine Ratio 18.3 (8-20) Glucose 96 (70-100) mg/dL Lactic Acid 0.5 (0.5-2.0) mmol/L Calcium 9.6 (8.6-10.3) mg/dL Total Bilirubin 0.40 (0.2-1.0) mg/dL AST 13 (13-39) U/L ALT 6 L (7-52) U/L Alkaline Phosphatase 67 (34-104) U/L Troponin I Pending Total Protein 6.9 (6.4-8.9) g/dL Albumin 4.0 (3.2-5.2) g/dL Globulin 2.9 (2-4) g/dL Albumin/Globulin Ratio 1.4 (1-3) 04/05/18 Range/Units 20:42 WBC (3.5-10.8) 10^3/ul RBC (4.00-5.40) 10^6/ul Hgb (12.0-16.0) g/dl Hct (35-47) % MCV (80-97) fL MCH (27-31) pg MCHC (31-36) g/dl RDW (10.5-15) % Plt Count (150-450) 10^3/ul MPV (7.4-10.4) um3 Neut % (Auto) (38-83) % Lymph % (Auto) (25-47) % [place] % (Auto) (0-7) % Eos % (Auto) (0-6) % Baso % (Auto) (0-2) % Absolute Neuts (auto) (1.5-7.7) 10^3/ul Absolute Lymphs (auto) (1.0-4.8) 10^3/ul Absolute Monos (auto) (0-0.8) 10^3/ul Absolute Eos (auto) (0-0.6) 10^3/ul Absolute Basos (auto) (0-0.2) 10^3/ul Absolute Nucleated RBC 10^3/ul Nucleated RBC % INR (Anticoag Therapy) 0.94 (0.77-1.02) APTT 32.9 (26.0-36.3) seconds D-Dimer, Quantitative < 200 (Less Than 230) ng/mL Sodium (135-145) mmol/L Potassium (3.5-5.0) mmol/L Chloride (101-111) mmol/L Carbon Dioxide (22-32) mmol/L Anion Gap (2-11) mmol/L BUN (6-24) mg/dL Creatinine (0.51-0.95) mg/dL Est GFR ( Amer) (>60) Est GFR (Non-Af Amer) (>60) BUN/Creatinine Ratio (8-20) Glucose (70-100) mg/dL Lactic Acid (0.5-2.0) mmol/L Calcium (8.6-10.3) mg/dL Total Bilirubin (0.2-1.0) mg/dL AST (13-39) U/L ALT (7-52) U/L Alkaline Phosphatase (34-104) U/L Troponin I Total Protein (6.4-8.9) g/dL Albumin (3.2-5.2) g/dL Globulin (2-4) g/dL Albumin/Globulin Ratio (1-3) Assess/Plan/Problems-Billing Assessment:
[2018-04-06] MEDS: NS 0.9% 1000 ML* 1,000 ML IV SCH ×2 (02:18→10:05)
[2018-04-06] MEDS ORDERED: CMC:Pantoprazole TAB (NF) 40 MG TAB PO SCH (07:30)
--- NOTE | 2018-04-06 08:13 | RAD ---
Indication: Chest pain. Single frontal view of the chest performed at 2027 hours was reviewed. Comparison is made with previous exam dated September 10, 2017. No mediastinal shift is noted. Heart is of normal size and configuration. Lung bronson appear clear. IMPRESSION: NO ACTIVE CARDIOPULMONARY DISEASE IS NOTED. R0
[2018-04-06 08:16] LABS: ABS Basophils 0.1 10^3/ul (0-0.2); ABS Eosinophils 0.2 10^3/ul (0-0.6); ABS Lymphocytes 2.6 10^3/ul (1.0-4.8); ABS Monocytes 0.4 10^3/ul (0-0.8); ABS Neutrophils 3.4 10^3/ul (1.5-7.7); ABS Nucleated RBC 0 10^3/ul; Eosinophil % 2.9 % (0-6); Hematocrit 41 % (35-47); Hemoglobin 13.9 g/dl (12.0-16.0); Mean Corpuscular HGB Conc 34 g/dl (31-36); Mean Corpuscular Hemoglobin 31 pg (27-31); Mean Corpuscular Volume 92 fL (80-97); Mean Platelet Volume 9.5 um3 (7.4-10.4); Nucleated Red Blood Cells % 0.1; Platelet Count 215 10^3/ul (150-450); Red Blood Count 4.45 10^6/ul (4.00-5.40); Red Cell Distribution Width 14 % (10.5-15); White Blood Count 6.7 10^3/ul (3.5-10.8)
[2018-04-06 08:35] LABS: EGFR Non-African American 86.1 (>60)
[2018-04-06] MEDS ORDERED: Lisinopril TAB* 10 MG PO SCH (09:00)
[2018-04-06] MEDS ORDERED: Potassium Chlor TAB* 20 MEQ TAB.ER PO SCH (09:00)
[2018-04-06] MEDS ORDERED: Metoprolol Succinate XL TAB* 50 MG PO SCH (09:00)
[2018-04-06] MEDS ORDERED: Aspirin EC TAB* 325 MG PO SCH (09:00)
[2018-04-06] MEDS ORDERED: Omeprazole CAP* 20 MG PO SCH (09:00)
[2018-04-06] MEDS ORDERED: Clopidogrel TAB* 75 MG PO SCH (09:00)
[2018-04-06] MEDS ORDERED: Potassium Chlor TAB* 10 MEQ TAB.ER PO SCH (09:24)
[2018-04-06 12:28] VITALS: BP 143/94
[2018-04-06] MEDS ORDERED: Triamterene/HCTZ 37.5-25 MG* CAP PO SCH (21:00)
--- NOTE | 2018-04-06 23:18 | DS ---
CC: Dr. Baeza* DISCHARGE SUMMARY: DATE OF ADMISSION: 04/05/18 DATE OF DISCHARGE: 04/06/18 PRIMARY CARE PROVIDER: Dr. Baeza PRIMARY DIAGNOSIS: Chest pain. SECONDARY DIAGNOSES: Include: 1. Hypertension. 2. History of obesity. 3. Gastroesophageal reflux disease. 4. History of low back pain. 5. History of mood disorders. 6. History of depression and anxiety. MEDICATIONS ON DISCHARGE: Unchanged from admission include; 1. Alprazolam 0.5 mg 3 times a day as needed. 2. Omeprazole 40 mg daily. 3. Metoprolol succinate 50 mg daily. 4. Lisinopril 20 mg twice daily. 5. Dyazide 37.5/25 one cap in the evening. 6. Potassium chloride 30 mEq twice daily. 7. Pantoprazole 40 mg daily. PERTINENT LABORATORY DATA: Troponin I is 0.27 on presentation, declined to 0.00 three hours later and remained negative 4 consecutive checks. AST 13, ALT 6. PERTINENT IMAGING: Chest x-ray, no active cardiopulmonary disease. HISTORY OF PRESENT ILLNESS AND HOSPITAL COURSE: This is a 52-year-old female with past medical history as outlined in the history of present illness on the day of admission, presented to the hospital in April with chest pain similar to this event, underwent a stress test with nuclear imaging that was interpreted to be low risk. Recently over the last 5 days, she has been under a particular amount of stress after the sudden loss of her sister. The patient states she has remained active, however, has not been eating. 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 Those relieved after rubén and belching, however, after she noted that her heart rate was fast subjectively associated with sensation of diaphoresis for which she proceeded to the emergency room. Upon presentation to the emergency room, her EKG again was nonischemic, however, her troponin was 0.27. Subsequent troponin 3 hours later was 0.00 and a total of 4 additional tropnins remained negative. This is very similar presentation to her presentation in April of 2017 where she had 1 elevated troponin of 0.34 with all others remaining 0.00. Stress test at that time was interpreted as low risk. She has had no additional chest discomfort other than 2 episodes of chest discomfort lasting for seconds. She felt that though her heart rate was slightly fast overnight, however, telemetry monitoring indicated normal sinus rhythm without episodes of tachycardia, palpitations or abnormal or any arrhythmias. She ambulated around the unit without chest discomfort prior to discharge. She is set-up for an outpatient stress test next week and encouraged to call on Sunday should she not hear back. We did discuss staying in the hospital over the weekend for stress test on Sunday. She agrees with the plan to return home to follow up on Sunday. We discussed at length returning to the hospital should she have any recurrent symptoms including chest discomfort, shortness of breath, nausea, vomiting, lightheadedness, palpitations. She agrees to do so. She is quite liable. There were no complications during the course of this hospital stay. At followup, please: 1. Ensure patient has outpatient stress test. 2. No other specific labs or vitals that need followup. Reasons to return to the hospital were discussed at length including chest pain or chest discomfort, shortness of breath, lightheadedness, loss of consciousness or near loss of consciousness, palpitations, diaphoresis, nausea, vomiting, increasing fatigue, fevers, or chills, or night sweats, inability to obtain or tolerate medications. Patient acknowledged understanding. TIME SPENT: Greater than 60 minutes was spent on the discharge of the patient, greater than half was spent [id number] with the patient. [id number]/[facility] #: [id number] JORGE
== END 2018-04-06 12:50 | disposition home or self-care (01) ==
LOC: ED 18:55 → MEDTELE 22:53
PROVIDERS: ADMIT Internal Medicine; ATTEND Internal Medicine
DX: R07.9 Chest pain, unspecified (principal); I10 Essential (primary) hypertension; K21.9 Gastro-esophageal reflux disease without esophagitis; Z86.39 Personal history of other endocrine, nutritional and metabolic disease; M54.5 Low back pain; F39 Unspecified mood [affective] disorder; F32.9 Major depressive disorder, single episode, unspecified; I25.2 Old myocardial infarction; E66.01 Morbid (severe) obesity due to excess calories; Z87.39 Personal history of other diseases of the musculoskeletal system and connective tissue; Z87.891 Personal history of nicotine dependence
CPT/HCPCS: 36415; 71045; 80053; 83605; 84443; 84484; 85025; 85379; 85610; 85730; 93005; 96372; 96374; 99284; A9270-GY; G0378; J1650

== ENCOUNTER → 2018-04-30 15:39 | Emergency (ER) | payer OTHER ==
[~2018-04-30 15:39] MED LIST: Benzonatate CAP* 100 MG PO ONE; Lidocaine 2% VISCOUS* 15 ML UDC PO ONE
--- NOTE | 2018-04-30 17:30 | ED ---
Throat Pain/Nasal Congestion - HPI Summary HPI Summary: 52-year-old female presents with sinus congestion for the past 5 days. States it started with a runny nose. 3 days ago she developed a fever. States that her sinus congestion is Worse past two days. Is worse on left side. she admits to occasional headache. She admits to a dry scratchy throat. She's been having a cough. Sometimes she has some chest pain with cough. No chest pain at baseline. No shortness breath. no pain or swelling in her calf muscles. She states that she had a normal stress test last month. Her family is sick. States she does have an inhaler that she needs to use occasionally. She is nonsmoker. Denies any history of asthma or COPD. she admits to pressure in her ears. - History of Current Complaint Chief Complaint: EDFluSymptoms - Allergies/Home Medications Allergies/Adverse Reactions: Allergies Allergy/AdvReac Type Severity Reaction Status Date / Time clarithromycin [From Biaxin] Allergy Rash Verified 04/30/18 15:48 PMH/Surg Hx/FS Hx/Imm Hx Endocrine/Hematology History: Reports: Other Endocrine/Hematological Disorders - Hx Low potassium Denies: Hx Diabetes Cardiovascular History: Reports: Hx Angina - pressure, Hx Hypertension Denies: Hx Coronary Artery Disease, Hx Hypercholesterolemia, Hx Myocardial Infarction, Hx Pacemaker/ICD, Hx Valvular Heart Disease Respiratory History: Reports: Hx Asthma Denies: Hx Chronic Obstructive Pulmonary Disease (COPD) GI History: Reports: Hx Gastroesophageal Reflux Disease, Other GI Disorders - Hemorrhoids History: Reports: Other Problems/Disorders - Hx UTI Denies: Hx Dialysis, Hx Renal Disease Musculoskeletal History: Reports: Other Musculoskeletal History - herniated disc in lower back & in neck Sensory History: Reports: Hx Contacts or Glasses Denies: Hx Hearing Aid Opthamlomology History: Reports: Hx Contacts or Glasses Psychiatric History: Reports: Hx Anxiety Denies: Hx Panic Disorder - Surgical History Surgery Procedure, Year, and Place: HYSTERECTOMY, CSECTIONS - Immunization History Date of Tetanus Vaccine: unknown Date of Influenza Vaccine: March 2018 Infectious Disease History: No Infectious Disease History: Reports: Hx of Known/Suspected MRSA - per pt. Denies: Traveled Outside the [place] in Last 30 Days - Family History Known Family History: Positive: Cardiac Disease, Hypertension, Diabetes - Social History Alcohol Use: Rare Hx Substance Use: No Substance Use Type: Reports: None Hx Tobacco Use: Yes Smoking Status (MU): Former Smoker Review of Systems Positive: Fever Positive: Sore Throat, Nasal Discharge Negative: Chest Pain Positive: Cough. Negative: Shortness Of Breath Negative: Abdominal Pain All Other Systems Reviewed And Are Negative: Yes Physical Exam Triage Information Reviewed: Yes Vital Signs On Initial Exam: Initial Vitals Temp Pulse Resp BP Pulse Ox 98.9 F 86 20 138/92 98 04/30/18 15:45 04/30/18 15:45 04/30/18 15:45 04/30/18 15:45 04/30/18 15:45 Vital Signs Reviewed: Yes Appearance: Positive: Well-Appearing Skin: Positive: Warm, Dry Head/Face: Positive: Normal Head/Face Inspection Eyes: Positive: Normal, EOMI, VENU, Conjunctiva Clear ENT: Positive: Pharyngeal erythema, Nasal congestion, TMs normal, Sinus tenderness, Uvula midline, Other - soft palate symmetric. Negative: Tonsillar swelling, Tonsillar exudate, Trismus, Muffled voice Neck: Positive: Supple, Nontender, No Lymphadenopathy Respiratory/Lung Sounds: Positive: Clear to Auscultation, Breath Sounds Present Cardiovascular: Positive: Normal, RRR Abdomen Description: Positive: Nontender, Soft Bowel Sounds: Positive: Present Musculoskeletal: Positive: Normal Neurological: Positive: Normal Psychiatric: Positive: Normal Diagnostics - Vital Signs Vital Signs Temp Pulse Resp BP Pulse Ox 04/30/18 15:45 98.9 F 86 20 138/92 98 - Laboratory Lab Statement: Any lab studies that have been ordered have been reviewed, and results considered in the medical decision making process. - Radiology chest Radiology Interpretation Completed By: Radiologist Summary of Radiographic Findings: NAD EENT Course/Dx - Course Course Of Treatment: 52-year-old female presents with sinus congestion for the past 5 days. States it started with a runny nose. 3 days ago she developed a fever. States that her sinus congestion is Worse past two days. Is worse on left side. she admits to occasional headache. She admits to a dry scratchy throat. She's been having a cough. Sometimes she has some chest pain with cough. No chest pain at baseline. No shortness breath. no pain or swelling in her calf muscles. She states that she had a normal stress test last month. Her family is sick. States she does have an inhaler that she needs to use occasionally. She is nonsmoker. Denies any history of asthma or COPD. on exam sinus tenderness presents with nasal congestion. pharynx erythematous. uvula midline. lungs CTA. chest xray normal. strept and flu neg. patient declined lab work. discussed is still viral at this point. will treat with flonase. told if persists for 2 more days can start antibiotics for sinus infection. patient understand and agrees with plan. - Differential Diagnoses Differential Diagnoses: Sinusitis, URI/Bronchitis, Other - pneumonia - Diagnoses Provider Diagnoses: Upper respiratory infection Discharge - Sign-Out/Discharge Documenting (check all that apply): Patient Departure - Discharge Plan Condition: Good Disposition: HOME Prescriptions: Amoxicillin PO (*) [Amoxicillin 875 MG (*)] 875 mg PO BID #14 tab Benzonatate CAP* [Tessalon 100 MG CAP*] 100 mg PO TID #21 cap Fluticasone NASAL SPRAY 50MCG* [Flonase NASAL SPRAY 50MCG*] 2 spray BOTH NARES DAILY #1 btl Patient Education Materials: Upper Respiratory Infection (ED) Referrals: Kostas Baeza MD [Primary Care Provider] - Additional Instructions: Use Tessalon three times a day for cough Use intranasal steroid one spray each nostril twice a day Symptoms likely viral at this point. If no improvement in sinus congestion in 2- 4 days can start antibiotic twice a day for 7 days make sure finish complete course if start antibiotics Use saline spray in nose as much as needed Can use cough drops or products such as cloraseptic spray Take Tylenol or ibuprofen for pain every 6 hours Follow up with primary in 5 days if no improvement Return to ED if develop any new or worsening symptoms - Billing Disposition and Condition Condition: GOOD Disposition: Home
[2018-04-30 18:55] VITALS: BP 154/108
== END | disposition home or self-care (01) ==
LOC: ED 15:39
DX: J06.9 Acute upper respiratory infection, unspecified (principal); Z88.1 Allergy status to other antibiotic agents; Z87.891 Personal history of nicotine dependence
CPT/HCPCS: 71046; 87651; 99283; A9270-GY

== ENCOUNTER → 2018-05-13 19:26 | Emergency (ER) | payer OTHER ==
[~2018-05-13 19:26] MED LIST changes: -Benzonatate CAP* 100 MG PO ONE; -Lidocaine 2% VISCOUS* 15 ML UDC PO ONE; +Phenazopyridine TAB* 100 MG PO ONE; +Sulfamethox/Trimethoprim DS 800/160* TAB PO ONE
--- NOTE | 2018-05-13 20:33 | ED ---
GI/ HPI - HPI Summary HPI Summary: A 52 y/o female presents to the ED c/o dysuria since the morning of 05/13/2018. She rates her pain as a constant 10/10. She reports that she has not been able to produce much urine, and when she does urinate she experiences dysuria. The patient claims that her "bladder is full" but she is having difficulty urinating. She denies fever and abd pain. - History of Current Complaint Chief Complaint: EDUrogenitalProblems Time Seen by Provider: 05/13/18 20:05 Stated Complaint: UNABLE TO URINATE Hx Obtained From: Patient Onset/Duration: Started Hours Ago, Still Present Timing: Constant, Lasting Hours Severity: Severe Current Severity: Severe Pain Intensity: 10 - out of 10. Associated Signs and Symptoms: Positive: Dysuria. Negative: Abdominal Pain - Allergy/Home Medications Allergies/Adverse Reactions: Allergies Allergy/AdvReac Type Severity Reaction Status Date / Time clarithromycin [From Biaxin] Allergy Rash Verified 04/30/18 15:48 PMH/Surg Hx/FS Hx/Imm Hx Endocrine/Hematology History: Reports: Other Endocrine/Hematological Disorders - Hx Low potassium Denies: Hx Diabetes Cardiovascular History: Reports: Hx Angina - pressure, Hx Hypertension Denies: Hx Coronary Artery Disease, Hx Hypercholesterolemia, Hx Myocardial Infarction, Hx Pacemaker/ICD, Hx Valvular Heart Disease Respiratory History: Reports: Hx Asthma Denies: Hx Chronic Obstructive Pulmonary Disease (COPD) GI History: Reports: Hx Gastroesophageal Reflux Disease, Other GI Disorders - Hemorrhoids History: Reports: Other Problems/Disorders - Hx UTI Denies: Hx Dialysis, Hx Renal Disease Musculoskeletal History: Reports: Other Musculoskeletal History - herniated disc in lower back & in neck Sensory History: Reports: Hx Contacts or Glasses Denies: Hx Hearing Aid Opthamlomology History: Reports: Hx Contacts or Glasses Psychiatric History: Reports: Hx Anxiety Denies: Hx Panic Disorder - Surgical History Surgery Procedure, Year, and Place: HYSTERECTOMY, CSECTIONS - Immunization History Date of Tetanus Vaccine: unknown Date of Influenza Vaccine: March 2018 Infectious Disease History: No Infectious Disease History: Reports: Hx of Known/Suspected MRSA - per pt. Denies: Traveled Outside the [place] in Last 30 Days - Family History Known Family History: Positive: Cardiac Disease, Hypertension, Diabetes - Social History Alcohol Use: Rare Hx Substance Use: No Substance Use Type: Reports: None Hx Tobacco Use: Yes Smoking Status (MU): Former Smoker Review of Systems Negative: Fever Negative: Abdominal Pain Positive: dysuria All Other Systems Reviewed And Are Negative: Yes Physical Exam - Summary Physical Exam Summary: VITAL SIGNS: Reviewed. GENERAL: Patient is a well-developed and nourished FEMALE who is lying comfortable in the stretcher. Patient is not in any acute respiratory distress. HEAD AND FACE: No signs of trauma. No ecchymosis, hematomas or skull depressions. No sinus tenderness. EYES: PERRLA, EOMI x 2, No injected conjunctiva, no nystagmus. EARS: Hearing grossly intact. Ear canals and tympanic membranes are within normal limits. MOUTH: Oropharynx within normal limits. NECK: Supple, trachea is midline, no adenopathy, no JVD, no carotid bruit, no c- spine tenderness, neck with full ROM. CHEST: Symmetric, no tenderness at palpation LUNGS: Clear to auscultation bilaterally. No wheezing or crackles. CVS: Regular rate and rhythm, S1 and S2 present, no murmurs or gallops appreciated. ABDOMEN: No suprapubic tenderness, no suprapubic fullness. Soft, non-tender. No signs of distention. No rebound no guarding, and no masses palpated. Bowel sounds are normal. EXTREMITIES: FROM in all major joints, no edema, no cyanosis or clubbing. NEURO: Alert and oriented x 3. No acute neurological deficits. Speech is normal and follows commands. SKIN: Dry and warm Triage Information Reviewed: Yes Vital Signs On Initial Exam: Initial Vitals Temp Pulse Resp BP Pulse Ox 97.7 F 93 16 129/83 96 05/13/18 19:33 05/13/18 19:33 05/13/18 19:33 05/13/18 19:33 05/13/18 19:33 Vital Signs Reviewed: Yes Diagnostics - Vital Signs Vital Signs Temp Pulse Resp BP Pulse Ox 05/13/18 19:33 97.7 F 93 16 129/83 96 - Laboratory Lab Statement: Any lab studies that have been ordered have been reviewed, and results considered in the medical decision making process. GIGU Course/Dx - Course Course Of Treatment: A 52 y/o female presents to the ED c/o dysuria since the morning of 05/13/2018. She rates her pain as a constant 10/10. She reports that she has not been able to produce much urine, and when she does urinate she experiences dysuria. The patient claims that her "bladder is full" but she is having difficulty urinating. She denies fever and abd pain. Her PE was unremarkable with no suprapubic tenderness or fullness. In the ED course she was given Bactrim and Pyridium PO. Her urine results were consistent with UTI. Dx: UTI. The pt will be discharged home with prescriptions for pyridium and bactrim. The pt is agreeable with this plan. - Diagnoses Provider Diagnoses: UTI (urinary tract infection) Discharge - Sign-Out/Discharge Documenting (check all that apply): Patient Departure - DC - Discharge Plan Condition: Stable Disposition: HOME Prescriptions: Phenazopyridine TAB* [Pyridium 100 mg TAB*] 100 mg PO TID PRN #7 tab MDD 3 PRN Reason: Pain Sulfamethox/Trimethoprim DS* [Bactrim DS 800/160 TAB*] 1 tab PO BID #14 tab Patient Education Materials: Urinary Tract Infection in Women (ED) Referrals: Kostas Baeza MD [Primary Care Provider] - (1-2 days) Additional Instructions: RETURN TO THE EMERGENCY DEPARTMENT FOR CHANGING OR WORSENING SYMPTOMS. FOLLOW UP WITH PCP IN 1-2 DAYS. - Attestation Statements Document Initiated by Scribe: Yes Documenting Scribe: Harry Perez Provider For Whom Scribe is Documenting (Include Credential): Gus Carmona MD Scribe Attestation: Harry Up, scribed for Gus Carmona MD on 05/13/18 at 2139.
[2018-05-13 21:00] LABS: Urine Appearance Cloudy; Urine Blood 3+ (Negative); Urine Color Yellow; Urine Ketones Negative (Negative); Urine Protein 1+(30 mg/dL) (Negative); Urine Red Blood Cell 3+(>10/hpf) (Absent); Urine Specific Gravity 1.019 (1.010-1.030); Urine Urobilinogen Negative (Negative); Urine White Blood Cell 3+(>20/hpf) (Absent)
[2018-05-13 22:22] VITALS: BP 136/70
--- NOTE | 2018-05-17 11:17 | PN ---
Progress Note - Progress Note Date of Service: 05/13/18 Note: Pt. seen in ED 05/13 and started on Bactrim for UTI. Urine culture today is growing 100,000 e. coli that is resistant to bactrim. Attempted to call pt. today at 1009 with no answer. Message left to return call. Will try to call pt. again tomorrow.
== END | disposition home or self-care (01) ==
LOC: ED 19:26
DX: N39.0 Urinary tract infection, site not specified (principal); B96.20 Unspecified Escherichia coli [E. coli] as the cause of diseases classified elsewhere; Z16.39 Resistance to other specified antimicrobial drug; Z87.440 Personal history of urinary (tract) infections; Z88.1 Allergy status to other antibiotic agents; Z90.710 Acquired absence of both cervix and uterus; Z87.891 Personal history of nicotine dependence
CPT/HCPCS: 81003; 81015; 87077; 87086; 87186; 99282; A9270-GY

== ENCOUNTER → 2018-07-02 22:47 | Emergency (ER) | payer OTHER ==
[~2018-07-02 22:47] MED LIST changes: +Albuterol HFA INHALER* 8 gm MDI INH ONE; +Albuterol HFA INHALER* 8 gm MDI INH SCH; -Phenazopyridine TAB* 100 MG PO ONE; -Sulfamethox/Trimethoprim DS 800/160* TAB PO ONE; +predniSONE TAB* 20 MG PO ONE
--- NOTE | 2018-07-02 23:34 | ED ---
Respiratory - HPI Summary HPI Summary: This patient is a 53 year old F presenting to [facility] accompanied by her with a chief complaint of chest congestion and coughing that began earlier today. The patient states while she was at work earlier today she began having chest tightness with coughing. She used her albuterol inhaler with relief but states it is . The patient rates the pain 9/10 in severity. She does have a history of asthma and states she has had a cold recently with a fever that lasted one day, 3 days ago. - History of Current Complaint Chief Complaint: EDUpperRespComplaint Stated Complaint: COUGH Time Seen by Provider: 07/02/18 23:06 Hx Obtained From: Patient Onset/Duration: Lasting Hours, Still Present Timing: Constant Initial Severity: Moderate Current Severity: Moderate Pain Intensity: 9 Character: Cough (Nonproductive) Sputum Amount: None Alleviating Factor(s): Other Associated Signs and Symptoms: Fever - Allergy/Home Medications Allergies/Adverse Reactions: Allergies Allergy/AdvReac Type Severity Reaction Status Date / Time clarithromycin [From Biaxin] Allergy Rash Verified 07/02/18 22:52 PMH/Surg Hx/FS Hx/Imm Hx Endocrine/Hematology History: Reports: Other Endocrine/Hematological Disorders - Hx Low potassium Denies: Hx Diabetes Cardiovascular History: Reports: Hx Angina - pressure, Hx Hypertension Denies: Hx Coronary Artery Disease, Hx Hypercholesterolemia, Hx Myocardial Infarction, Hx Pacemaker/ICD, Hx Valvular Heart Disease Respiratory History: Reports: Hx Asthma Denies: Hx Chronic Obstructive Pulmonary Disease (COPD) GI History: Reports: Hx Gastroesophageal Reflux Disease, Other GI Disorders - Hemorrhoids History: Reports: Other Problems/Disorders - Hx UTI Denies: Hx Dialysis, Hx Renal Disease Musculoskeletal History: Reports: Other Musculoskeletal History - herniated disc in lower back & in neck Sensory History: Reports: Hx Contacts or Glasses Denies: Hx Hearing Aid Opthamlomology History: Reports: Hx Contacts or Glasses Psychiatric History: Reports: Hx Anxiety Denies: Hx Panic Disorder - Surgical History Surgery Procedure, Year, and Place: HYSTERECTOMY, CSECTIONS - Immunization History Date of Tetanus Vaccine: unknown Date of Influenza Vaccine: March 2018 Infectious Disease History: No Infectious Disease History: Reports: Hx of Known/Suspected MRSA - per pt. Denies: Traveled Outside the [place] in Last 30 Days - Family History Known Family History: Positive: Cardiac Disease, Hypertension, Diabetes - Social History Alcohol Use: Rare Hx Substance Use: No Substance Use Type: Reports: None Hx Tobacco Use: Yes Smoking Status (MU): Former Smoker Review of Systems Positive: Fever Positive: Other - chest tightness Positive: Cough - w/ congestion All Other Systems Reviewed And Are Negative: Yes Physical Exam - Summary Physical Exam Summary: VITAL SIGNS: Reviewed. GENERAL: Patient is a well-developed and nourished female who is lying comfortable in the stretcher. Patient is not in any acute respiratory distress. HEAD AND FACE: No signs of trauma. No ecchymosis, hematomas or skull depressions. No sinus tenderness. EYES: PERRLA, EOMI x 2, No injected conjunctiva, no nystagmus. EARS: Hearing grossly intact. Ear canals and tympanic membranes are within normal limits. MOUTH: Oropharynx within normal limits. NECK: Supple, trachea is midline, no adenopathy, no JVD, no carotid bruit, no c- spine tenderness, neck with full ROM. CHEST: Symmetric, no tenderness at palpation LUNGS: Clear to auscultation bilaterally. No wheezing or crackles. CVS: Regular rate and rhythm, S1 and S2 present, no murmurs or gallops appreciated. ABDOMEN: Soft, non-tender. No signs of distention. No rebound no guarding, and no masses palpated. Bowel sounds are normal. EXTREMITIES: FROM in all major joints, no edema, no cyanosis or clubbing. NEURO: Alert and oriented x 3. No acute neurological deficits. Speech is normal and follows commands. SKIN: Dry and warm Triage Information Reviewed: Yes Vital Signs On Initial Exam: Initial Vitals Temp Pulse Resp BP Pulse Ox 98.2 F 101 16 161/97 97 07/02/18 22:48 07/02/18 22:48 07/02/18 22:48 07/02/18 22:48 07/02/18 22:48 Vital Signs Reviewed: Yes Diagnostics - Vital Signs Vital Signs Temp Pulse Resp BP Pulse Ox 07/02/18 22:48 98.2 F 101 16 161/97 97 - Laboratory Lab Statement: Any lab studies that have been ordered have been reviewed, and results considered in the medical decision making process. Disposition - Course Assessment/Plan: This patient is a 53 year old F presenting to [facility] accompanied by her with a chief complaint of chest congestion and coughing that began earlier today. The patient states while she was at work earlier today she began having chest tightness with coughing. She used her albuterol inhaler with relief but states it is . The patient rates the pain 9/10 in severity. She does have a history of asthma and states she has had a cold recently with a fever that lasted one day, 3 days ago. In the ED course the patient was given prednisone and albuterol. There was improvement with these medications. Patient will be discharged with prescription for albuterol and prednisone and follow up from PCP. The patient is agreeable with this plan. - Diagnoses Provider Diagnoses: Asthma Discharge - Sign-Out/Discharge Documenting (check all that apply): Patient Departure - Discharge Plan Condition: Stable Disposition: HOME Prescriptions: Albuterol HFA INHALER* [Ventolin HFA Inhaler*] 2 puff INH Q6H PRN #1 mdi PRN Reason: Sob/Wheezing predniSONE TAB* [Deltasone 20 MG TAB*] 40 mg PO DAILY #6 tab Patient Education Materials: Asthma (ED) Referrals: Kostas Baeza MD [Primary Care Provider] - 2 Days Additional Instructions: RETURN TO THE EMERGENCY DEPARTMENT FOR CHANGING OR WORSENING SYMPTOMS - Attestation Statements Document Initiated by Scribe: Yes Documenting Scribe: Smith Tomlinson Provider For Whom Scribe is Documenting (Include Credential): Gus Carmona MD Scribe Attestation: Smith Up , scribed for Gus Carmona MD on 07/02/18 at 2340. Status of Scribe Document: Ready
[2018-07-02 23:50] VITALS: BP 134/86
== END | disposition home or self-care (01) ==
LOC: ED 22:47
DX: J45.909 Unspecified asthma, uncomplicated (principal); Z88.1 Allergy status to other antibiotic agents; Z87.891 Personal history of nicotine dependence
CPT/HCPCS: 99283; A9270-GY; J7512

== ENCOUNTER 2018-07-04 00:29 | Emergency (ER) | payer OTHER ==
[2018-07-04] MEDS ORDERED: predniSONE TAB* 20 MG PO ONE (00:52)
--- NOTE | 2018-07-04 00:53 | ED ---
Respiratory - HPI Summary HPI Summary: 53 year old male presents with sudden onset shortness breath today. States she' s had a cough for the past couple days. She states that she woke up with shortness of breath. She states that she felt like her heart was racing. She also had some chest tightness. she admits to chronic nausea vomiting. She admits to some sinus congestion. No sore throat. No fevers. Cough tends to be dry. She has history of asthma. She has not picked up her steroid dose for today. She has been using her inhaler. Denies any pain or swelling in calf muscles. - History of Current Complaint Chief Complaint: EDUpperRespComplaint Stated Complaint: SOB Time Seen by Provider: 07/04/18 00:45 Pain Intensity: 0 - Allergy/Home Medications Allergies/Adverse Reactions: Allergies Allergy/AdvReac Type Severity Reaction Status Date / Time clarithromycin [From Biaxin] Allergy Rash Verified 07/02/18 22:52 PMH/Surg Hx/FS Hx/Imm Hx Endocrine/Hematology History: Reports: Other Endocrine/Hematological Disorders - Hx Low potassium Denies: Hx Diabetes Cardiovascular History: Reports: Hx Angina - pressure, Hx Hypertension Denies: Hx Coronary Artery Disease, Hx Hypercholesterolemia, Hx Myocardial Infarction, Hx Pacemaker/ICD, Hx Valvular Heart Disease Respiratory History: Reports: Hx Asthma Denies: Hx Chronic Obstructive Pulmonary Disease (COPD) GI History: Reports: Hx Gastroesophageal Reflux Disease, Other GI Disorders - Hemorrhoids History: Reports: Other Problems/Disorders - Hx UTI Denies: Hx Dialysis, Hx Renal Disease Musculoskeletal History: Reports: Other Musculoskeletal History - herniated disc in lower back & in neck Sensory History: Reports: Hx Contacts or Glasses Denies: Hx Hearing Aid Opthamlomology History: Reports: Hx Contacts or Glasses Psychiatric History: Reports: Hx Anxiety Denies: Hx Panic Disorder - Surgical History Surgery Procedure, Year, and Place: HYSTERECTOMY, CSECTIONS - Immunization History Date of Tetanus Vaccine: unknown Date of Influenza Vaccine: March 2018 Infectious Disease History: Yes Infectious Disease History: Reports: Hx of Known/Suspected MRSA - per pt. Denies: Traveled Outside the [place] in Last 30 Days - Family History Known Family History: Positive: Cardiac Disease, Hypertension, Diabetes - Social History Alcohol Use: Rare Hx Substance Use: No Substance Use Type: Reports: None Hx Tobacco Use: Yes Smoking Status (MU): Former Smoker Review of Systems Negative: Fever Positive: Chest Pain Positive: Shortness Of Breath, Cough Negative: Abdominal Pain All Other Systems Reviewed And Are Negative: Yes Physical Exam Triage Information Reviewed: Yes Vital Signs On Initial Exam: Initial Vitals Temp Pulse Resp BP Pulse Ox 97.2 F 110 16 122/91 96 07/04/18 00:35 07/04/18 00:35 07/04/18 00:35 07/04/18 00:35 07/04/18 00:35 Vital Signs Reviewed: Yes Appearance: Positive: Well-Appearing Skin: Positive: Warm, Dry Head/Face: Positive: Normal Head/Face Inspection Eyes: Positive: Normal, EOMI, VENU, Conjunctiva Clear ENT: Positive: Normal ENT inspection, Pharynx normal, TMs normal Respiratory/Lung Sounds: Positive: Clear to Auscultation, Breath Sounds Present , Other - reproducible chest pain Cardiovascular: Positive: Normal, RRR Abdomen Description: Positive: Nontender, Soft Bowel Sounds: Positive: Present Musculoskeletal: Positive: Normal Neurological: Positive: Normal Psychiatric: Positive: Normal Diagnostics - Vital Signs Vital Signs Temp Pulse Resp BP Pulse Ox 07/04/18 00:35 97.2 F 110 16 122/91 96 - Laboratory Result Diagrams: 07/04/18 00:57 07/04/18 00:57 Lab Statement: Any lab studies that have been ordered have been reviewed, and results considered in the medical decision making process. - Radiology chest Radiology Interpretation Completed By: ED Physician Summary of Radiographic Findings: no active disease - EKG No standard instances Cardiac Rate: NL EKG Rhythm: Sinus Rhythm Summary of EKG Findings: sinus rhythm Disposition - Course Course Of Treatment: 53 year old male presents with sudden onset shortness breath today. States she's had a cough for the past couple days. She states that she woke up with shortness of breath. She states that she felt like her heart was racing. She also had some chest tightness. she admits to chronic nausea vomiting. She admits to some sinus congestion. No sore throat. No fevers. Cough tends to be dry. She has history of asthma. She has not picked up her steroid dose for today. She has been using her inhaler. Denies any pain or swelling in calf muscles. On exam lungs clear to auscultation. reproducible chest pain. EKG shows sinus rhythm. troponin zero. d-dimer neg. wbc 11. bnp normal. chest xray normal. will give tessalon for the cough. will have continue inhaler and steriod already prescribed. patient understand and agrees with plan. - Differential Dx - Cardiopulmonary Differential Diagnoses - Cardiopulmonary: Asthma, Bronchitis, Influenza, Lower Resp Infection - Diagnoses Provider Diagnoses: Asthma, Bronchitis Discharge - Sign-Out/Discharge Documenting (check all that apply): Patient Departure - Discharge Plan Condition: Good Disposition: HOME Prescriptions: Benzonatate CAP* [Tessalon 100 MG CAP*] 100 mg PO TID #21 cap Patient Education Materials: Acute Bronchitis (ED) Referrals: Kostas Baeza MD [Primary Care Provider] - Additional Instructions: Use Tessalon three times a day for cough Use inhaler one puff every 4 hours for cough as needed continue steroid Use saline in the nose Follow up with primary care physician in 5 days Return to ED if develop any new or worsening symptoms - Billing Disposition and Condition Condition: GOOD Disposition: Home
[2018-07-04 01:05] LABS: ABS Basophils 0.1 10^3/ul (0-0.2); ABS Eosinophils 0.1 10^3/ul (0-0.6); ABS Lymphocytes 3.1 10^3/ul (1.0-4.8); ABS Monocytes 0.9 10^3/ul (0-0.8); ABS Nucleated RBC 0 10^3/ul; Hematocrit 43 % (35-47); Hemoglobin 14.3 g/dl (12.0-16.0); Lymphocyte % 27.5 %; Mean Corpuscular HGB Conc 33 g/dl (31-36); Mean Corpuscular Hemoglobin 30 pg (27-31); Mean Corpuscular Volume 92 fL (80-97); Mean Platelet Volume 9.3 fL (7.4-10.4); Nucleated Red Blood Cells % 0.1; Platelet Count 252 10^3/ul (150-450); Red Blood Count 4.72 10^6/ul (4.00-5.40); Red Cell Distribution Width 14 % (10.5-15); White Blood Count 11.2 10^3/ul (3.5-10.8)
[2018-07-04 01:22] LABS: Albumin 4.1 g/dL (3.2-5.2); Albumin/Globulin Ratio 1.4 (1-3); BUN/Creatinine Ratio 16.3 (8-20); Calcium 9.6 mg/dL (8.6-10.3); EGFR Non-African American 59.1 (>60); Globulin 2.9 g/dL (2-4); Potassium 3.3 mmol/L (3.5-5.0); Total Bilirubin 0.4 mg/dL (0.2-1.0)
[2018-07-04] MEDS ORDERED: Benzonatate CAP* 100 MG PO ONE (01:31)
[2018-07-04] MEDS ORDERED: predniSONE TAB* 10 MG PO ONE (02:00)
[2018-07-04 02:16] VITALS: BP 124/93
== END 2018-07-04 01:55 | disposition home or self-care (01) ==
LOC: ED 00:29
DX: J45.909 Unspecified asthma, uncomplicated (principal); J40 Bronchitis, not specified as acute or chronic; R06.02 Shortness of breath; R07.9 Chest pain, unspecified; R05 Cough; Z87.891 Personal history of nicotine dependence
CPT/HCPCS: 36415; 71046; 80053; 83880; 84484; 85025; 85379; 93005; 99283; A9270-GY; J7512

== ENCOUNTER 2018-08-11 20:19 | Emergency (ER) | payer OTHER ==
--- NOTE | 2018-08-11 20:59 | ED ---
Palpitations / Dysrhythmia - HPI Summary HPI Summary: This patient is a 53 year old F presenting to ED with a chief complaint of palpitations since 3 days ago. The CC is described as fluttering. She also feels like her potassium might be low so she took two extra potassium doses today. The patient rates the pain 9/10 in severity. Symptoms aggravated by nothing. Symptoms alleviated by nothing. Patient reports headache. - History of Current Complaint Chief Complaint: EDGeneral Time Seen by Provider: 08/11/18 20:48 Hx Obtained From: Patient Onset/Duration: Sudden Onset, Lasting Days - 3 days ago, Still Present Timing: Constant Severity Initially: Severe Severity Currently: Severe - 9/10 Character: Fluttering Aggravating: Nothing Alleviating: Nothing - Allergy/Home Medications Allergies/Adverse Reactions: Allergies Allergy/AdvReac Type Severity Reaction Status Date / Time clarithromycin [From Biaxin] Allergy Rash Verified 08/11/18 20:26 PMH/Surg Hx/FS Hx/Imm Hx Endocrine/Hematology History: Reports: Other Endocrine/Hematological Disorders - Hx Low potassium Denies: Hx Diabetes Cardiovascular History: Reports: Hx Angina - pressure, Hx Hypertension Denies: Hx Coronary Artery Disease, Hx Hypercholesterolemia, Hx Myocardial Infarction, Hx Pacemaker/ICD, Hx Valvular Heart Disease Respiratory History: Reports: Hx Asthma Denies: Hx Chronic Obstructive Pulmonary Disease (COPD) GI History: Reports: Hx Gastroesophageal Reflux Disease, Other GI Disorders - Hemorrhoids History: Reports: Other Problems/Disorders - Hx UTI Denies: Hx Dialysis, Hx Renal Disease Musculoskeletal History: Reports: Other Musculoskeletal History - herniated disc in lower back & in neck Sensory History: Reports: Hx Contacts or Glasses Denies: Hx Hearing Aid Opthamlomology History: Reports: Hx Contacts or Glasses Psychiatric History: Reports: Hx Anxiety Denies: Hx Panic Disorder - Surgical History Surgery Procedure, Year, and Place: HYSTERECTOMY, CSECTIONS - Immunization History Date of Tetanus Vaccine: unknown Date of Influenza Vaccine: March 2018 Infectious Disease History: Yes Infectious Disease History: Reports: Hx of Known/Suspected MRSA - per pt. Denies: Traveled Outside the [place] in Last 30 Days - Family History Known Family History: Positive: Cardiac Disease, Hypertension, Diabetes - Social History Alcohol Use: Rare Hx Substance Use: No Substance Use Type: Reports: None Hx Tobacco Use: Yes Smoking Status (MU): Former Smoker Review of Systems Positive: Other - feels like her potassium is low Positive: Palpitations - fluttering Positive: Headache All Other Systems Reviewed And Are Negative: Yes Physical Exam - Summary Physical Exam Summary: VITAL SIGNS: Reviewed. GENERAL: Patient is a well-developed and nourished FEMALE who is lying comfortable in the stretcher. Patient is not in any acute respiratory distress. HEAD AND FACE: No signs of trauma. No ecchymosis, hematomas or skull depressions. No sinus tenderness. EYES: PERRLA, EOMI x 2, No injected conjunctiva, no nystagmus. EARS: Hearing grossly intact. Ear canals and tympanic membranes are within normal limits. MOUTH: Oropharynx within normal limits. NECK: Supple, trachea is midline, no adenopathy, no JVD, no carotid bruit, no c- spine tenderness, neck with full ROM. CHEST: Symmetric, no tenderness at palpation LUNGS: Clear to auscultation bilaterally. No wheezing or crackles. CVS: Regular rate and rhythm, S1 and S2 present, no murmurs or gallops appreciated. ABDOMEN: Soft, non-tender. No signs of distention. No rebound no guarding, and no masses palpated. Bowel sounds are normal. EXTREMITIES: FROM in all major joints, no edema, no cyanosis or clubbing. NEURO: Alert and oriented x 3. No acute neurological deficits. Speech is normal and follows commands. SKIN: Dry and warm Triage Information Reviewed: Yes Vital Signs On Initial Exam: Initial Vitals Temp Pulse Resp BP Pulse Ox 97.4 F 74 16 132/81 97 08/11/18 20:21 08/11/18 20:21 08/11/18 20:21 08/11/18 20:21 08/11/18 20:21 Vital Signs Reviewed: Yes Diagnostics - Vital Signs Vital Signs Temp Pulse Resp BP Pulse Ox 08/11/18 20:21 97.4 F 74 16 132/81 97 - Laboratory Result Diagrams: 08/11/18 21:34 Lab Statement: Any lab studies that have been ordered have been reviewed, and results considered in the medical decision making process. - EKG 2055 Cardiac Rate: NL - 68 BPM Summary of EKG Findings: Normal axis. Normal interval. No ischemic changes. Course/Dx - Course Assessment/Plan: This patient is a 53 year old F presenting to ED with a chief complaint of palpitations since 3 days ago. The CC is described as fluttering . She also feels like her potassium might be low so she took two extra potassium doses today. This patient will be discharged with dx of palpitations. Patient understands and agrees with this plan. - Diagnoses Differential Diagnosis/HQI/PQRI: Positive: Other - palpitations Provider Diagnoses: Palpitations Discharge - Sign-Out/Discharge Documenting (check all that apply): Patient Departure - discharge Patient Received Moderate/Deep Sedation with Procedure: No - Discharge Plan Condition: Stable Disposition: HOME Patient Education Materials: Heart Palpitations (ED) Referrals: Kostas Baeza MD [Primary Care Provider] - (Follow up in 1-2 days.) Additional Instructions: RETURN TO THE EMERGENCY DEPARTMENT FOR CHANGING OR WORSENING SYMPTOMS. FOLLOW UP WITH PCP IN 1-2 DAYS. - Attestation Statements Document Initiated by Scribe: Yes Documenting Scribe: Mike Toth Provider For Whom Scribe is Documenting (Include Credential): Gus Carmona MD Scribe Attestation: I, Mike Toth, scribed for Gus Carmona MD on 08/11/18 at 2210. Status of Scribe Document: Ready
[2018-08-11 22:01] LABS: Albumin 3.7 g/dL (3.2-5.2); Albumin/Globulin Ratio 1.4 (1-3); BUN/Creatinine Ratio 11.8 (8-20); Calcium 8.9 mg/dL (8.6-10.3); EGFR Non-African American 79.3 (>60); Globulin 2.7 g/dL (2-4); Potassium 3.4 mmol/L (3.5-5.0); Total Bilirubin 0.4 mg/dL (0.2-1.0); Total Protein 6.4 g/dL (6.4-8.9)
[2018-08-11] MEDS ORDERED: Potassium Chlor TAB* 20 MEQ TAB.ER PO ONE (22:09)
[2018-08-11 22:21] VITALS: BP 122/90
== END 2018-08-11 22:21 | disposition home or self-care (01) ==
LOC: ED 20:19
DX: R00.2 Palpitations (principal); R51 Headache; Z88.1 Allergy status to other antibiotic agents; Z87.891 Personal history of nicotine dependence
CPT/HCPCS: 36415; 80053; 93005; 99282; A9270-GY

== ENCOUNTER 2018-11-04 22:33 | Emergency (ER) | payer OTHER ==
--- NOTE | 2018-11-04 23:32 | ED ---
Palpitations / Dysrhythmia - HPI Summary HPI Summary: Pt is a 53 y/o female who presents to the ED c/o palpitations. Around 19:00 today she suddenly began to have racing palpitations. Pt has a hx of low potassium and is prescribed 3000 mg Potassium BID. 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 Pt also took Xanax without relief. Her episodes of palpitations are usually shorter in length. Pt also c/o mild SOB, chest pressure, mild ELDRIDGE, and lightheadedness with walking. She denies any nausea, LE edema, or weight gain/ loss. As per medical records, pt has been to the ED in the past for palpitations and was diagnosed with anxiety. She denies any drug or caffeine use. PMHx anxiety, HTN. FHx CA. - History of Current Complaint Chief Complaint: EDDysrhythmPalp Time Seen by Provider: 11/04/18 23:27 Hx Obtained From: Patient Onset/Duration: Sudden Onset, Lasting Hours - 19:00, Still Present Timing: Constant Character: Fast Aggravating: Other - walking Alleviating: Nothing Associated Signs & Symptoms: Lightheadedness, Chest Pain - pressure, Shortness of Breath Related History: Similar Episode/Dx as - hx palpitations - Allergy/Home Medications Allergies/Adverse Reactions: Allergies Allergy/AdvReac Type Severity Reaction Status Date / Time clarithromycin [From Biaxin] Allergy Rash Verified 11/04/18 22:59 PMH/Surg Hx/FS Hx/Imm Hx Endocrine/Hematology History: Reports: Other Endocrine/Hematological Disorders - Hx Low potassium Denies: Hx Diabetes Cardiovascular History: Reports: Hx Angina - pressure, Hx Hypertension, Other Cardiovascular Problems/Disorders - palpitations Denies: Hx Coronary Artery Disease, Hx Hypercholesterolemia, Hx Myocardial Infarction, Hx Pacemaker/ICD, Hx Valvular Heart Disease Respiratory History: Reports: Hx Asthma Denies: Hx Chronic Obstructive Pulmonary Disease (COPD) GI History: Reports: Hx Gastroesophageal Reflux Disease, Other GI Disorders - Hemorrhoids History: Reports: Other Problems/Disorders - Hx UTI Denies: Hx Dialysis, Hx Renal Disease Musculoskeletal History: Reports: Other Musculoskeletal History - herniated disc in lower back & in neck Sensory History: Reports: Hx Contacts or Glasses Denies: Hx Hearing Aid Opthamlomology History: Reports: Hx Contacts or Glasses Psychiatric History: Reports: Hx Anxiety Denies: Hx Panic Disorder - Surgical History Surgery Procedure, Year, and Place: HYSTERECTOMY, CSECTIONS - Immunization History Date of Tetanus Vaccine: unknown Date of Influenza Vaccine: March 2018 Infectious Disease History: No Infectious Disease History: Reports: Hx of Known/Suspected MRSA - per pt. Denies: Traveled Outside the [place] in Last 30 Days - Family History Known Family History: Positive: Cardiac Disease - CA, Hypertension, Diabetes, Other - stroke - brother - Social History Alcohol Use: Rare Hx Substance Use: No Substance Use Type: Reports: None Hx Tobacco Use: Yes Smoking Status (MU): Former Smoker Review of Systems Negative: Other - weight gain/loss Positive: Palpitations, Chest Pain - pressure Positive: Shortness Of Breath - mild Negative: Nausea Negative: Edema - LE Neurological: Other - lightheadedness w/ walking Positive: Headache - mild All Other Systems Reviewed And Are Negative: Yes Physical Exam - Summary Physical Exam Summary: Appearance: well appearing, no pain distress Skin: warm, dry, reflects adequate perfusion Head/face: normal Eyes: EOMI, VENU ENT: mucous membranes moist Neck: supple, non-tender, no goiter Respiratory: CTA, breath sounds present Cardiovascular: RRR, pulses symmetrical Abdomen: non-tender, soft Bowel Sounds: present Musculoskeletal: normal, strength/ROM intact Neuro: normal, sensory motor intact, A&Ox3 Triage Information Reviewed: Yes Vital Signs On Initial Exam: Initial Vitals Temp Pulse Resp BP Pulse Ox 98.3 F 86 16 131/93 97 11/04/18 22:56 11/04/18 22:56 11/04/18 22:56 11/04/18 22:56 11/04/18 22:56 Vital Signs Reviewed: Yes Diagnostics - Vital Signs Vital Signs Temp Pulse Resp BP Pulse Ox 11/04/18 22:56 98.3 F 86 16 131/93 97 - Laboratory Result Diagrams: 11/04/18 23:39 11/04/18 23:39 Lab Statement: Any lab studies that have been ordered have been reviewed, and results considered in the medical decision making process. - EKG 23:37 Cardiac Rate: NL - 72 bpm EKG Rhythm: Sinus Rhythm ST Segment: Normal Summary of EKG Findings: Nl axis, nl intervals Course/Dx - Course Course Of Treatment: Patient with second presentation for palpitation-like symptoms. Previously diagnosed with anxiety. Patient with normal sinus rhythm in the 70s and low 80s throughout her visit without even any ectopy. Laboratories benign. Increased metoprolol dose and will follow up with primary care physician for outpatient Holter monitor. - Diagnoses Differential Diagnosis/HQI/PQRI: Positive: Cardiomyopathy, Panic Disorder, Pericarditis, V-Tach, Other - SVT, A. fib, ectopy, electrolyte abnormality Provider Diagnoses: Palpitations, History of anxiety Discharge - Sign-Out/Discharge Documenting (check all that apply): Patient Departure - Discharge Patient Received Moderate/Deep Sedation with Procedure: No - Discharge Plan Condition: Improved Disposition: HOME Patient Education Materials: Heart Palpitations (ED) Referrals: Kostas Baeza MD [Primary Care Provider] - Additional Instructions: Call your doctor first thing in the morning to schedule prompt follow-up and placement of a Holter monitor. Take 2 pills of your metoprolol XL 50 mg each day. Return with chest pain, worsening palpitations, passing out, worse, new symptoms or other concerns. - Billing Disposition and Condition Condition: IMPROVED Disposition: Home - Attestation Statements Document Initiated by Ezioibe: Yes Documenting Scribe: Sherlyn Floyd Provider For Whom Fabian is Documenting (Include Credential): Andrew Benavides MD Scribe Attestation: ISherlyn, scribed for Andrew Benavides MD on 11/05/18 at 0549. Scribe Documentation Reviewed: Yes Provider Attestation: The documentation as recorded by the Sherlyn arenas accurately reflects the service I personally performed and the decisions made by me, Andrew Benavides MD Status of Scribe Document: Viewed
[2018-11-04] MEDS ORDERED: Metoprolol Tartrate TAB* 50 mg PO ONE (23:44)
[2018-11-04 23:45] LABS: ABS Basophils 0.1 10^3/ul (0-0.2); ABS Eosinophils 0.2 10^3/ul (0-0.6); ABS Lymphocytes 2.7 10^3/ul (1.0-4.8); ABS Monocytes 0.6 10^3/ul (0-0.8); ABS Neutrophils 5.7 10^3/ul (1.5-7.7); Eosinophil % 1.8 %; Hematocrit 44 % (35-47); Hemoglobin 14.5 g/dL (12.0-16.0); Lymphocyte % 28.9 %; Mean Corpuscular HGB Conc 33 g/dL (31-36); Mean Corpuscular Hemoglobin 30 pg (27-31); Mean Corpuscular Volume 92 fL (80-97); Mean Platelet Volume 8.9 fL (7.4-10.4); Nucleated Red Blood Cells % 0.2; Platelet Count 268 10^3/uL (150-450); Red Blood Count 4.78 10^6 /uL (3.70-4.87); Red Cell Distribution Width 14 % (10.5-15); White Blood Count 9.2 10^3/uL (3.5-10.8)
[2018-11-05 00:10] LABS: Albumin 3.9 g/dL (3.2-5.2); Albumin/Globulin Ratio 1.2 (1-3); BUN/Creatinine Ratio 19.8 (8-20); Calcium 9.8 mg/dL (8.6-10.3); EGFR African American 83.2 (>60); EGFR Non-African American 68.8 (>60); Globulin 3.2 g/dL (2-4); Magnesium 1.8 mg/dL (1.9-2.7); Total Bilirubin 0.3 mg/dL (0.2-1.0); Total Protein 7.1 g/dL (6.4-8.9)
[2018-11-05 00:11] LABS: Troponin I 0.01 ng/mL (<0.04)
[2018-11-05 00:25] LABS: TSH (Thyroid Stimulating Horm) 1.25 mcIU/mL (0.34-5.60)
[2018-11-05 00:54] LABS: Potassium 3.7 mmol/L (3.5-5.0)
[2018-11-05 01:21] VITALS: BP 129/79
== END 2018-11-05 01:11 | disposition home or self-care (01) ==
LOC: ED 22:33
DX: R00.2 Palpitations (principal); I10 Essential (primary) hypertension; R42 Dizziness and giddiness; R07.9 Chest pain, unspecified; K21.9 Gastro-esophageal reflux disease without esophagitis; R06.02 Shortness of breath; Z87.891 Personal history of nicotine dependence
CPT/HCPCS: 36415; 80053; 83605; 83735; 84443; 84484; 85025; 93005; 99282

== ENCOUNTER 2018-12-27 21:50 | Emergency (ER) | payer OTHER ==
[2018-12-28] MEDS ORDERED: Al Hydrox/Mg Hydrox/Simet LIQ* 30 ML UDC PO ONE (00:25)
[2018-12-28 00:49] LABS: ABS Basophils 0.1 10^3/ul (0-0.2); ABS Eosinophils 0.2 10^3/ul (0-0.6); ABS Lymphocytes 2.6 10^3/ul (1.0-4.8); ABS Monocytes 0.5 10^3/ul (0-0.8); ABS Neutrophils 4.1 10^3/ul (1.5-7.7); Eosinophil % 2.9 %; Hematocrit 43 % (35-47); Hemoglobin 14.5 g/dL (12.0-16.0); Lymphocyte % 34.4 %; Mean Corpuscular HGB Conc 34 g/dL (31-36); Mean Corpuscular Hemoglobin 31 pg (27-31); Mean Corpuscular Volume 92 fL (80-97); Mean Platelet Volume 8.8 fL (7.4-10.4); Nucleated Red Blood Cells % 0.1; Platelet Count 247 10^3/uL (150-450); Red Cell Distribution Width 14 % (10-15); White Blood Count 7.6 10^3/uL (3.5-10.8)
[2018-12-28 00:51] LABS: Urine Appearance Cloudy; Urine Bacteria 1+ (Absent); Urine Bilirubin Negative (Negative); Urine Blood 1+ (Negative); Urine Color Straw; Urine Glucose Negative (Negative); Urine Ketones Negative (Negative); Urine Nitrite Negative (Negative); Urine Protein Negative (Negative); Urine Red Blood Cell 2+(6-10/hpf) (Absent); Urine Specific Gravity 1.003 (1.010-1.030); Urine Squamous Epithelial Cell Present (Absent); Urine Urobilinogen Negative (Negative); Urine White Blood Cell 3+(>20/hpf) (Absent)
--- NOTE | 2018-12-28 00:52 | ED ---
Abdominal Pain/Female - HPI Summary HPI Summary: The patient is a 53 y/o F presenting to [facility] accompanied by with a chief complaint of gradual onset epigastric pain and pressure starting last night. She reports that the pain felt like trapped gas, but she was unable to alleviate the pressure with soda or stretching as recommended to her when the feeling continued today. The pain is aggravated by coughing. As the pain worsened today, she does not report any other symptoms except for pain radiating to the back. Currently, the pressure is rated 8/10 in severity. She denies fever, chills, nausea, vomiting, diarrhea, constipation, urinary symptoms , cough, and rhinorrhea. Hx of GERD, angina, HTN. Surgical hx of hysterectomy, sections. Former smoker, rare EtOH, no substance use. - History of Current Complaint Chief Complaint: EDAbdPain Stated Complaint: ABD PAIN PER PT Time Seen by Provider: 12/27/18 22:46 Hx Obtained From: Patient Onset/Duration: Gradual Onset, Lasting Hours - since yesterday, Still Present Timing: Hours Severity Initially: Mild Severity Currently: Moderate Pain Intensity: 8 Pain Scale Used: 0-10 Numeric Location: Epigastric Radiates: Yes Radiates to: Back Character: Other: - pressure Aggravating Factor(s): Other: - coughing Alleviating Factor(s): Nothing - drinking soda and stretching to no relief Associated Signs and Symptoms: Positive: Back Pain, Other:. Negative: Fever, Cough, Chest Pain, Constipation, Urinary Symptoms, Nausea, Vomiting, Diarrhea - NEGATIVE: urinary symptoms, rhinorrhea Allergies/Adverse Reactions: Allergies Allergy/AdvReac Type Severity Reaction Status Date / Time clarithromycin [From Biaxin] Allergy Rash Verified 12/27/18 21:57 PMH/Surg Hx/FS Hx/Imm Hx Endocrine/Hematology History: Reports: Other Endocrine/Hematological Disorders - Hx Low potassium Denies: Hx Diabetes Cardiovascular History: Reports: Hx Angina - pressure, Hx Hypertension, Other Cardiovascular Problems/Disorders - palpitations Denies: Hx Coronary Artery Disease, Hx Hypercholesterolemia, Hx Myocardial Infarction, Hx Pacemaker/ICD, Hx Valvular Heart Disease Respiratory History: Reports: Hx Asthma Denies: Hx Chronic Obstructive Pulmonary Disease (COPD) GI History: Reports: Hx Gastroesophageal Reflux Disease, Other GI Disorders - Hemorrhoids History: Reports: Other Problems/Disorders - Hx UTI Denies: Hx Dialysis, Hx Renal Disease Musculoskeletal History: Reports: Other Musculoskeletal History - herniated disc in lower back & in neck Sensory History: Reports: Hx Contacts or Glasses Denies: Hx Hearing Aid Opthamlomology History: Reports: Hx Contacts or Glasses Psychiatric History: Reports: Hx Anxiety Denies: Hx Panic Disorder - Surgical History Surgery Procedure, Year, and Place: HYSTERECTOMY, CSECTIONS - Immunization History Date of Tetanus Vaccine: unknown Date of Influenza Vaccine: March 2018 Infectious Disease History: Yes Infectious Disease History: Reports: Hx of Known/Suspected MRSA - per pt. Denies: Traveled Outside the [place] in Last 30 Days - Family History Known Family History: Positive: Cardiac Disease - [place], Hypertension, Diabetes, Other - stroke - brother - Social History Alcohol Use: Rare Hx Substance Use: No Substance Use Type: Reports: None Hx Tobacco Use: Yes Smoking Status (MU): Former Smoker Review of Systems Negative: Fever, Chills Negative: Nasal Discharge Negative: Chest Pain Negative: Shortness Of Breath, Cough Positive: Abdominal Pain - epigastric pressure, Other - NEGATIVE: constipation. Negative: Vomiting, Diarrhea, Nausea Positive: no symptoms reported Positive: Other - back pain Negative: Rash All Other Systems Reviewed And Are Negative: Yes Physical Exam - Summary Physical Exam Summary: Constitutional: Well-developed, Well-nourished, Alert. (-) Distressed Skin: Warm, Dry HENT: Normocephalic; Atraumatic Eyes: Conjunctiva normal Neck: Musculoskeletal ROM normal neck. (-) JVD, (-) Stridor, (-) Tracheal deviation Cardio: Rhythm regular, rate normal, Heart sounds normal; Intact distal pulses; The pedal pulses are 2+ and symmetric. Radial pulses are 2+ and symmetric. (-) Murmur Pulmonary/Chest wall: Effort normal. (-) Respiratory distress, (-) Wheezes, (-) Rales Abd: Soft, (+) epigastric and RUQ tenderness, (-) Distension, (-) Guarding, (-) Rebound Musculoskeletal: (-) Edema Lymph: (-) Cervical adenopathy Neuro: Alert, Oriented x3 Psych: Mood and affect Normal Triage Information Reviewed: Yes Vital Signs On Initial Exam: Initial Vitals Temp Pulse Resp BP Pulse Ox 97.0 F 86 16 145/88 98 12/27/18 21:53 12/27/18 21:53 12/27/18 21:53 12/27/18 21:53 12/27/18 21:53 Vital Signs Reviewed: Yes Diagnostics - Vital Signs Vital Signs Temp Pulse Resp BP Pulse Ox 12/28/18 00:23 72 146/97 99 12/28/18 00:00 72 100 12/27/18 23:53 71 151/94 98 12/27/18 23:22 75 146/93 98 12/27/18 23:00 78 97 12/27/18 22:54 79 146/95 97 12/27/18 22:53 73 99 12/27/18 21:53 97.0 F 86 16 145/88 98 - Laboratory Result Diagrams: 12/28/18 00:43 12/28/18 00:43 Lab Statement: Any lab studies that have been ordered have been reviewed, and results considered in the medical decision making process. - EKG 215 Cardiac Rate: NL - 84 BPM EKG Rhythm: Sinus Rhythm Summary of EKG Findings: Normal sinus rhythm at 84 bpm, normal [place], normal QRS, normal QTc, normal axis, normal ST, normal T-waves, normal EKG. Re-Evaluation - Re-Evaluation First Eval Re-Evaluation Time: 02:40 Change: Improved Comment: The patient is feeling much better. We discussed discharge home. Abdominal Pain Fem Course/Dx - Course Course Of Treatment: The patient is a 53 y/o F presenting to [facility] accompanied by with a chief complaint of gradual onset epigastric pain and pressure radiating to the back starting last night persisting with worsening into today without relief with stretching or drinking soda. She denies fever, chills, nausea, vomiting, diarrhea, constipation, urinary symptoms, cough, and rhinorrhea. Hx of GERD. Upon physical exam, the patient exhibits epigastric and RUQ tenderness. Blood work reveals potassium of 3.3, glucose of 101, and ALT of 6. UA reveals specific gravity of 1.003, 1+ blood, 3+ leukocyte esterase, 3+ WBCs, 2+ RBCs, presence of squamous epithelial cells, and 1+ bacteria. EKG reveals NSR at 84 BPM. In the ED course, she was administered a GI cocktail, which relieved her symptoms. Since she is feeling better, she will be discharged home with dx of gastritis and abd pain. She agrees with this plan. - Diagnoses Provider Diagnoses: Gastritis, Abdominal pain Discharge - Sign-Out/Discharge Documenting (check all that apply): Patient Departure - Patient will be discharged home. Patient Received Moderate/Deep Sedation with Procedure: No - Discharge Plan Condition: Stable Disposition: HOME Prescriptions: Famotidine TAB* [Pepcid 20 MG TAB*] 20 mg PO BID #20 tab Patient Education Materials: Acute Abdominal Pain (ED) Print Language: ARMENIAN Referrals: Kostas Baeza MD [Primary Care Provider] - - Billing Disposition and Condition Condition: STABLE Disposition: Home - Attestation Statements Document Initiated by Ezioibe: Yes Documenting Scribe: Nette Bashir Provider For Whom Fabian is Documenting (Include Credential): Dr. Hilda Stewart MD Scribe Attestation: Nette Up scribed for Dr. Hilda Stewart MD on 12/28/18 at 0833. Scribe Documentation Reviewed: Yes Provider Attestation: The documentation as recorded by the Nette arenas accurately reflects the service I personally performed and the decisions made by me, Dr. Hilda Stewart MD Status of Scribe Document: Viewed
[2018-12-28 01:07] LABS: Albumin 4.2 g/dL (3.2-5.2); Albumin/Globulin Ratio 1.4 (1-3); C Reactive Protein 6.25 mg/L (<8.01); Calcium 9.7 mg/dL (8.6-10.3); EGFR Non-African American 63.6 (>60); Globulin 3.1 g/dL (2-4); Potassium 3.3 mmol/L (3.5-5.0); Total Bilirubin 0.7 mg/dL (0.2-1.0); Total Protein 7.3 g/dL (6.4-8.9)
[2018-12-28] MEDS ORDERED: Potassium Chlor TAB* 20 MEQ TAB.ER PO ONE (01:49)
[2018-12-28 02:55] VITALS: BP 142/91
== END 2018-12-28 02:39 | disposition home or self-care (01) ==
LOC: ED 21:50
DX: K29.70 Gastritis, unspecified, without bleeding (principal); R10.13 Epigastric pain; Z88.1 Allergy status to other antibiotic agents; Z87.891 Personal history of nicotine dependence
CPT/HCPCS: 36415; 80053; 81003; 81015; 83605; 83690; 84484; 85025; 86140; 87086; 93005; 99283; A9270-GY

== ENCOUNTER 2019-07-02 20:08 | Emergency (ER) | payer OTHER ==
[2019-07-02] MEDS ORDERED: Metoprolol Succinate XL TAB* 50 MG PO ONE (22:10)
--- NOTE | 2019-07-02 22:19 | ED ---
Hypertension - HPI Summary HPI Summary: 54-year-old female presents with high blood pressure today. She states she woke up with a headache. She checked her blood and it blood pressure was 180/ 90. States she felt off all day. She denies any a chest pressures or shortness of breath. She been sick recently. Has a cough. Also had diarrhea that has resolved. headache has resolved. Denies abdominal pain. No nausea. Her children around her also sick. Has history of high blood pressure. She is on 3 different blood presure medications. She states she has not skipped any of her doses. She took her dose of metoprolol. - History of Current Complaint Chief Complaint: EDHypertension Stated Complaint: HIGH BLOOD PRESSURE PER PT Time Seen by Provider: 07/02/19 21:49 - Allergies/Home Medications Allergies/Adverse Reactions: Allergies Allergy/AdvReac Type Severity Reaction Status Date / Time clarithromycin [From Biaxin] Allergy Rash Verified 07/02/19 20:17 PMH/Surg Hx/FS Hx/Imm Hx Endocrine/Hematology History: Reports: Other Endocrine/Hematological Disorders - Hx Low potassium Denies: Hx Diabetes Cardiovascular History: Reports: Hx Angina - pressure, Hx Hypertension, Other Cardiovascular Problems/Disorders - palpitations Denies: Hx Coronary Artery Disease, Hx Hypercholesterolemia, Hx Myocardial Infarction, Hx Pacemaker/ICD, Hx Valvular Heart Disease Respiratory History: Reports: Hx Asthma Denies: Hx Chronic Obstructive Pulmonary Disease (COPD) GI History: Reports: Hx Gastroesophageal Reflux Disease, Other GI Disorders - Hemorrhoids History: Reports: Other Problems/Disorders - Hx UTI Denies: Hx Dialysis, Hx Renal Disease Musculoskeletal History: Reports: Other Musculoskeletal History - herniated disc in lower back & in neck Sensory History: Reports: Hx Contacts or Glasses Denies: Hx Hearing Aid Opthamlomology History: Reports: Hx Contacts or Glasses Psychiatric History: Reports: Hx Anxiety Denies: Hx Panic Disorder - Surgical History Surgery Procedure, Year, and Place: HYSTERECTOMY, CSECTIONS - Immunization History Date of Tetanus Vaccine: unknown Date of Influenza Vaccine: March 2018 Infectious Disease History: Yes Infectious Disease History: Reports: Hx of Known/Suspected MRSA - per pt. Denies: Traveled Outside the [place] in Last 30 Days - Family History Known Family History: Positive: Cardiac Disease - [place], Hypertension, Diabetes, Other - stroke - brother - Social History Alcohol Use: Rare Hx Substance Use: No Substance Use Type: Reports: None Hx Tobacco Use: Yes Smoking Status (MU): Former Smoker Amount Used/How Often: 24 years ago, quit Review of Systems Negative: Fever Negative: Chest Pain Positive: Cough. Negative: Shortness Of Breath Positive: Headache - resolved All Other Systems Reviewed And Are Negative: Yes Physical Exam Triage Information Reviewed: Yes Vital Signs On Initial Exam: Initial Vitals Temp Pulse Resp BP Pulse Ox 98.3 F 90 16 186/119 99 07/02/19 20:10 07/02/19 20:10 07/02/19 20:10 07/02/19 20:10 07/02/19 20:10 Vital Signs Reviewed: Yes Appearance: Positive: Well-Appearing Skin: Positive: Warm, Dry Head/Face: Positive: Normal Head/Face Inspection Eyes: Positive: Normal, Conjunctiva Clear ENT: Positive: Pharynx normal Respiratory/Lung Sounds: Positive: Clear to Auscultation, Breath Sounds Present Cardiovascular: Positive: Normal, RRR Abdomen Description: Positive: Nontender, Soft Bowel Sounds: Positive: Present Musculoskeletal: Positive: Normal Neurological: Positive: Normal Psychiatric: Positive: Normal Procedures - Sedation Patient Received Moderate/Deep Sedation with Procedure: No Diagnostics - Vital Signs Vital Signs Temp Pulse Resp BP Pulse Ox 07/02/19 20:10 98.3 F 90 16 186/119 99 - Laboratory Result Diagrams: 07/02/19 22:31 07/02/19 22:31 Lab Statement: Any lab studies that have been ordered have been reviewed, and results considered in the medical decision making process. - EKG No standard instances Cardiac Rate: NL EKG Rhythm: Sinus Rhythm EKG Comparison: No Significant Change Summary of EKG Findings: sinus rhythm Hypertension Course/Dx - Course Course Of Treatment: 54-year-old female presents with high blood pressure today. She states she woke up with a headache. She checked her blood and it blood pressure was 180/90. States she felt off all day. She denies any a chest pressures or shortness of breath. She been sick recently. Has a cough. Also had diarrhea that has resolved. headache has resolved. Denies abdominal pain. No nausea. Her children around her also sick. Has history of high blood pressure. She is on 3 different blood presure medications. She states she has not skipped any of her doses. She took her dose of metoprolol. On initial exam has normal physical exam. EKG shows sinus rhythm. Lab work: wbc normal. Potassium is 3.1 so gave supplement. Patient's bp in room is 140/93. As blood pressure as not been consistently elevated will not change meds at this time. Told to follow with primary and keep a blood pressure log. Patient understands agrees plan. - Diagnoses Differential Diagnosis/HQI PQRI: Hypertension, Hypertensive Urgency, Renal Disease Provider Diagnoses: Hypertension, Hypokalemia Discharge ED - Sign-Out/Discharge Documenting (check all that apply): Patient Departure - Discharge Plan Condition: Good Disposition: HOME Patient Education Materials: Hypertension (ED) Referrals: Kostas Baeza MD [Primary Care Provider] - Additional Instructions: follow up with primary within 5 days continue blood pressure log Return to ED if develop any new or worsening symptoms - Billing Disposition and Condition Condition: GOOD Disposition: Home
[2019-07-02 22:42] LABS: ABS Basophils 0.1 10^3/ul (0-0.2); ABS Eosinophils 0.2 10^3/ul (0-0.6); ABS Lymphocytes 2.4 10^3/ul (1.0-4.8); ABS Monocytes 0.4 10^3/ul (0-0.8); ABS Neutrophils 3.8 10^3/ul (1.5-7.7); Eosinophil % 3.5 %; Hematocrit 41 % (35-47); Hemoglobin 13.9 g/dL (12.0-16.0); Lymphocyte % 35.1 %; Mean Corpuscular HGB Conc 34 g/dL (31-36); Mean Corpuscular Hemoglobin 31 pg (27-31); Mean Corpuscular Volume 92 fL (80-97); Mean Platelet Volume 9.7 fL (7.4-10.4); Platelet Count 226 10^3/uL (150-450); Red Blood Count 4.42 10^6 /uL (3.70-4.87); Red Cell Distribution Width 14 % (10-15)
[2019-07-02 23:02] LABS: Albumin/Globulin Ratio 1.5 (1-3); BUN/Creatinine Ratio 20.8 (8-20); Calcium 9.2 mg/dL (8.6-10.3); EGFR African American 94.2 (>60); EGFR Non-African American 77.8 (>60); Globulin 2.6 g/dL (2-4); Potassium 3.1 mmol/L (3.5-5.0); Total Bilirubin 0.3 mg/dL (0.2-1.0); Total Protein 6.6 g/dL (6.4-8.9)
[2019-07-02] MEDS ORDERED: Potassium Chloride* LIQUID 20 MEQ/15 ML UDC PO ONE (23:08)
[2019-07-03 00:08] VITALS: BP 132/98
== END 2019-07-03 00:08 | disposition home or self-care (01) ==
LOC: ED 20:08
DX: I10 Essential (primary) hypertension (principal); E87.6 Hypokalemia; J45.909 Unspecified asthma, uncomplicated; K21.9 Gastro-esophageal reflux disease without esophagitis; Z87.891 Personal history of nicotine dependence; Z90.710 Acquired absence of both cervix and uterus; Z79.899 Other long term (current) drug therapy; Z88.1 Allergy status to other antibiotic agents
CPT/HCPCS: 36415; 80053; 83605; 85025; 93005; 99282; A9270-GY

== ENCOUNTER 2019-08-04 22:54 | Emergency (ER) | payer OTHER ==
[2019-08-04 23:01] VITALS: BP 146/104
--- OUTSIDE RECORDS SUMMARY | 2019-08-04 23:14 | XMS REPORT | Summary of Care ---
:1965 Author Organization [facility] Address [address] [place] [address] Care Team Providers Name Role Phone Kostas Baeza Primary Care Provider Reason for Visit Reason Comments ER F/U High blood pressure. Patient states she could feelit and went to ER. 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 7 (LIDODERM) 5 % Apply externally Patch fluticasone INSTILL 2 16 g 5 Active (FLONASE) 50 MCG/ACT SPRAYS IN 8 Nasal Suspension EACH NOSTROL ONCE DAILY potassium chloride Take 2 Tabs 270 Tab 3 Active (KLOR-CON) 20 MEQ by mouth 9 Oral Tab TWICE DAILY. CRIndications: Hypokalemia nystatin-triamcinolo Apply small 30 g 0 Active ne (MYCOLOG) amount twice 9 453095-6.1 UNIT/GM-% daily Apply externally Ointment nystatin Apply small 15 g 1 Active (MYCOSTATIN) 780407 amount twice 9 UNIT/GM Apply daily externally Cream triamcinolone Apply small 15 g 1 Active (KENALOG) 0.1 % amount twice 9 Apply externally daily Ointment triamterene-hydrochl TAKE 1 TABLET 90 Tab 1 Active orothiazide BY MOUTH 9 (DYAZIDE/MAXZIDE) EVERY DAY 37.5-25 MG Oral Tab ibuprofen (MOTRIN) Take 1 Tab by 120 Tab 4 Active 800 MG Oral Tab mouth EVERY 9 EIGHT HOURS NEEDED (knee ppain). with food metoprolol succinate TAKE 1 TABLET 30 Tab 5 Active (TOPROL XL) 50 MG BY MOUTH 9 Oral TABLET SR 24 HR EVERY DAY lisinopril TAKE 1 TABLET 60 Tab 5 Active (PRINIVIL, ZESTRIL) BY MOUTH 0 20 MG Oral TWICE A DAY TabIndications: Essential hypertension ALPRAZolam (XANAX) Take 1 Tab by 40 Tab 0 Active 0.5 MG Oral Tab mouth TWO 0 TIMES DAILY NEEDED (anxiety/ariana c). Max Daily Amount: 1 mg. fluoxetine (PROZAC) Take 1 Cap by 90 Cap 5 07/13/19 Active 20 MG Oral Cap mouth DAILY. 0 21 ALPRAZolam (XANAX) 1 Take 1 Tab by 30 Tab 0 07/14/19 Discontinued MG Oral Tab mouth DAILY 9 20 (Provider NEEDED Discontinued) (panic). Max Daily Amount: 1 mg. doxycycline Take 100 mg 20 Tab 0 07/14/19 Discontinued (VIBRAMYCIN) 100 MG by mouth 9 20 (Other) Oral Tab TWICE DAILY. fluconazole Take 1 Tab by 2 Tab 0 07/14/19 Discontinued (DIFLUCAN) 150 MG mouth DAILY. 9 20 (Other) Oral Tab pantoprazole TAKE 1 TABLET 30 Tab 5 07/14/19 Discontinued (PROTONIX) 40 MG BY MOUTH 9 20 (Duplicate Oral Tab EVERY DAY Order) ECIndications: Gastroesophageal reflux disease without esophagitis documented as of this encounter (statuses as of 07/14/2019) Active Problems Problem Noted Date Primary osteoarthritis of both knees 12/03/2018 Irritable bowel syndrome without diarrhea 03/22/2018 Cervical spondylosis with radiculopathy 03/31/2015 Varicose veins with pain, left 01/02/2015 BMI 36.0-36.9,adult 11/25/2013 GERD (gastroesophageal reflux disease) 06/16/2011 S/P MILO-BSO 12/08/2010 Overview: [facility] September 2010 Complicated by post op hematoma. 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 GESTATIONAL DIABETES 10/15/2007 documented as of this encounter (statuses as of 07/14/2019) Resolved Problems Problem Noted Date Resolved Date Neck pain 03/31/2015 07/14/2019 Palpitations 10/15/2007 12/08/2010 Iron Deficiency Anemia 10/15/2007 08/04/2014 HISTORY OF HYOKALEMIA 10/15/2007 07/14/2019 documented as of this encounter (statuses as of 07/14/2019) Immunizations Name Administration Dates Next Due Influenza (IM) Preservative Free 03/26/2019, 07/23/2013 Influenza Vaccine Whole 07/12/2017 TDAP Vaccine 11/25/2013 Tuberculin Skin Test 04/29/2005 documented as of this encounter Social History Tobacco Use Types Packs/Day Years Used Date Former Smoker 2 0 Quit: 10/23/1994 Smokeless Tobacco: Never Used Alcohol Use Drinks/Week oz/Week Comments No 0 Standard drinks or equivalent 0.0 Sex Assigned at Date Recorded Not on file Job Start Date Occupation Industry Not on file Not on file Not on file Travel History Travel Start Travel End No recent travel history available. documented as of this encounter Last Filed Vital Signs Vital Sign Reading Time Taken Comments Blood Pressure 128/80 07/14/2019 8:44 AM EST Pulse 71 07/14/2019 8:44 AM EST Temperature - - Respiratory Rate - - Oxygen Saturation - - Inhaled Oxygen Concentration - - Weight 104.8 kg (231 lb) 07/14/2019 8:44 AM EST Height 170.2 cm (5' 7") 07/14/2019 8:44 AM EST Body Mass Index 36.18 07/14/2019 8:44 AM EST documented in this encounter Patient Instructions Patient InstructionsKostas Baeza MD - 07/14/2019 9:00 AM ESTBlood pressure is fine today continue current medications Alprazolam 0.5 mg use as needed do not take daily it is addictive Fluoxitene 20 mg once daily for anxiety and depression this will take 3-4 weeks to kick in 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 Patient states she could feelit and went to ER. Subjective HISTORY OF PRESENT ILLNESS: Savi Davila is a 54-y.o. female. 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 Mom and has 7 kids 3 still live in her house and are teens she also helps to care for 4 grand children and one of her sons grownhas depression and recent suicidal ideation She sees therapist at [facility] weekly and does daily home exerciseRoutine of dancing and lili with exercise Tapes She is compliant with blood pressure medication She uses as needed alprazolam 0.5 mg about 5 day per week in evening to wind down or to sleep and itworks well The patient denies drug abuse or diversion she denies alcohol or tobacco use She has cut down caffeine intake She struggles with late night binge eating on high sodium snack food like chips and pretzels Wt Readings from Last 3 Encounters: 07/14/19 231 lb (104.8 kg) 03/26/19 238 lb (108 kg) 03/26/19 234 lb (106.1 kg) her home blood pressure she checks daily it runs 130-150/80 range Patient Active Problem List Diagnosis Essential hypertension MIGRAINE HEADACHES Non-cardiac chest pain GESTATIONAL DIABETES Herniated lumbar intervertebral disc 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 Max Daily Amount: 1 mg. fluoxetine (PROZAC) 20 MG Oral Cap Take 1 Cap by mouth DAILY. fluticasone (FLONASE) 50 MCG/ACT Nasal Suspension INSTILL 2 SPRAYS IN EACH NOSTROL ONCE DAILY ibuprofen (MOTRIN) 800 MG Oral Tab Take 1 Tab by mouth EVERY EIGHT HOURS NEEDED (knee ppain). with food lidocaine transdermal patch (LIDODERM) 5 % Apply externally Patch by Does not apply route. lisinopril (PRINIVIL, ZESTRIL) 20 MG Oral Tab TAKE 1 TABLET BY MOUTH TWICE A DAY metoprolol succinate (TOPROL XL) 50 MG Oral TABLET SR 24 HR TAKE 1 TABLET BY MOUTH EVERY DAY nystatin (MYCOSTATIN) 938338 UNIT/GM Apply externally Cream Apply small amount twice daily nystatin-triamcinolone (MYCOLOG) 761523-1.1 UNIT/GM-% Apply externally Ointment Apply small amount twice daily potassium chloride (KLOR-CON) 20 MEQ Oral Tab CR Take 2 Tabs by mouth TWICE DAILY. triamcinolone (KENALOG) 0.1 % Apply externally Ointment Apply small amount twice daily triamterene-hydrochlorothiazide (DYAZIDE/MAXZIDE) 37.5-25 MG Oral Tab TAKE 1 TABLET BY MOUTH EVERY DAY VENTOLIN HFA 108 (90 Base) MCG/ACT Inhalation Aero Soln TAKE 2 PUFFS EVERY 6 HOURS NEEDED WHEEZING/ FOR SHORTNESS OF BREATH No current facility-administered medications for this visit. 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 Biaxin [Clarithromycin] Cardiac Reaction SYNCOPAL SPELL Rofecoxib Other Social History Socioeconomic History Marital status: Spouse name: Not on file Number of children: Not on file Years of education: Not on file Highest education level: Not on file Occupational History Not on file Social Needs Financial resource strain: Not on file Food insecurity Worry: Not on file Inability: Not on file Transportation needs Medical: Not on file Non-medical: Not on file Tobacco Use Smoking status: Former Smoker Packs/day: 2.00 Years: 0.00 Pack years: 0.00 Last attempt to quit: 10/23/1994 Years since quittin.7 Smokeless tobacco: Never Used Substance and Sexual Activity Alcohol use: No Alcohol/week: 0.0 standard drinks Drug use: No Sexual activity: Yes Partners: Male Lifestyle Physical activity Days per week: Not on file Minutes per session: Not on file Stress: Not on file Relationships Social connections Talks on phone: Not on file Gets together: Not on file Attends baptist service: Not on file Active member of club or organization: Not on file Attends meetings of clubs or organizations: Not on file Relationship status: Not on file Intimate partner violence Fear of current or ex partner: Not on file Emotionally abused: Not on file Physically abused: Not on file Forced sexual activity: Not on file Other Topics Concern Back Care Not Asked Bike Helmet Not Asked Blood Transfusions Not Asked Caffeine Concern Not Asked Exercise Yes Comment: little Hobby Hazards Not Asked International Travel No Service No Occupational Exposure Not Asked Seat Belt Yes Self-Exams Not Asked Sleep Concern Not Asked Special Diet Not Asked Stress Concern Not Asked Weight Concern Not Asked 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 ROS no cardiovascular or pulmonary symptoms no gastro-intestinal symptoms Recent blood work at [facility] showed normal creatinine and potassium 3.1 Objective PHYSICAL EXAM: VITALS: BP 128/80 | Pulse 71 | Ht 5' 7" (1.702 m) | Wt 231 lb (104.8 kg) | BMI 36.18 kg/m Body mass index is 36.18 kg/m. Physical Exam S1 and S2 normal, no murmurs, clicks, gallops or rubs. Regular rate and rhythm. Chest is clear; nowheezes or rales. No edema or JVD. Mental status exam ; she is alert, orient to time, person and place. Normal thought content, speech , affect, mood and dress are noted. DINO 7 Score (generalized anxietydisorder) is : 14/21 PHQ-9 score is: 11 I spent 40 minutes with the patient, greater than half of this time in direct face to face counseling regarding the condition and the plan of care. ASSESSMENT / IMPRESSION: ICD-9-CM ICD-10-CM 1. White coat syndrome with hypertension continue current medications check home blood pressure daily low sodium diet and avoid late night binge eating 401.9 I10 2. Binge-eating disorder, moderate continue [facility] control her anxiety better consider yoga meditation or daily exercise Walk 307.59 F50.81 3. Situational anxiety due to children and grand children as needed alprazolam I warned the patient about the risk of sedation and drug dependency with prison use of this medication. 300.09 F41.8 4. Benign labile hypertension 401.1 I10 5. Generalized anxiety disorder begin selective serotonin receptor inhibitor fluoxitene follow up one month 300.02 F41.1 6. Hypokalemia 276.8 E87.6 7. BMI 36.0-36.9,adult see below V85.36 Z68.36 Patient Instructions Blood pressure is fine today continue current medications Alprazolam 0.5 mg use as needed do not take daily it is addictive Fluoxitene 20 mg once daily for anxiety and depression this will take 3-4 weeks to kick in You have lost weight shelter goal weight is <200 lb Follow up me 4 weeks Continue to go [facility] to use ibuprofen Kostas Baeza MD 07/14/2019 14:40 documented in this encounter Plan of Treatment Date Type Specialty Care Team Description 08/18/2019 Office Visit Internal Medicine Kostas Baeza MD [address] [place] [address] [phone] Health Maintenance Due Date Last Done Comments ZOSTER IMMUNIZATION SERIES 2014 (1 of 2) PAP SMEAR 11/25/2016 11/25/2013 (Declined), 11/22/2006, 04/27/2005 DEPRESSION SCREENING 11/09/2019 11/08/2018 DIABETES SCREENING 03/26/2020 03/26/2019, 10/01/2017, 05/26/2016, Additional history exists LIPID DISORDER SCREENING 03/26/2020 03/26/2019, 11/25/2013, 11/22/2006, Additional history exists MAMMOGRAM (SCREENING) 03/26/2020 03/26/2019, 03/12/2018, 01/03/2017, Additional history exists Colonoscopy 10/16/2022 10/16/2017, 09/11/2011 DTaP/Tdap/Td Vaccines (2 - 11/26/2023 11/25/2013 Tdap) INFLUENZA VACCINE Completed 03/26/2019, 07/12/2017, 07/23/2013 HEPATITIS A IMMUNIZATION Aged Out No longer eligible SERIES based on patient's age to complete this topic HPV IMMUNIZATION SERIES Aged Out No longer eligible based on patient's age to complete this topic MENINGOCOCCAL VACCINE IMM Aged Out No longer eligible based on patient's age to complete this topic PNEUMOCOCCAL 0-64 YRS Aged Out No longer eligible based on patient's age to complete this topic documented as of this encounter Goals Goal Patient Goal Associated Recent Patient-Stated? Author Type Problems Progress Blood Pressure Blood Pressure 128/80 No [place], < 140/90 (07/14/2019 Kostas Rosario, 8:44 AM EST) Note: Hypertension Care Plan Based on the patient's clinical history and according to JNC 8 guidelines target blood pressure goal is less than 140/90. Based on the patient's last blood pressure of BP: 152/78 mmHg the patient is at at goal. As your provider, it is important that I advise you regarding: your current medications and help you with any challenges you may face taking your medications as directed (ex. instructions, cost, side effects, and interactions). lifestyle changes: weight reduction, dietary sodium reduction and medication compliance your clinical goals and how you can achieve success: weight reduction and exercise plan medication management: N/A diet only patient education/self-management tools provided: Current self-management tools adequate To successfully manage my Hypertension I will: monitor my blood pressure daily, understanding that my goal is less than 140/ 90 per my healthcare provider's recommendation. I will schedule an appointment with my provider if consistent abnormal readings greater than 160/100. take medications every day as prescribed by my healthcare provider and if unable to take them I will discuss with my provider. monitor for symptoms of chest pain, chest tightness/pressure, irregular heartbeat, persistent dizziness, radiating arm pain, and neck or jaw pain. If any of these symptoms are noticed I will seek medical attention immediately by calling 911 exercise/walk 15 minutes 6 day(s) per week. If I experience chest pain, chest tightness, or shortness of breath, I will seek medical attention immediately. follow a diet rich in fruits, vegetables, and low-fat dairy products with reduced content of saturated & total fat. I will reduce my sodium intake daily. An example is the DASH diet. To obtain more information please refer to the DASH Eating Plan listed in Educational Resources. record my blood pressure results. [employer] is safe and secure way for you to do this in your medical record online. try to obtain an ideal body weight. My recent weight was Weight: 210 lb ( 95.255 kg). My weight loss goal for my next office visit is 200 pounds . limit alcohol consumption. For men two drinks per day and women one drink per day. if currently smoking, will discuss how to quit smoking with my healthcare provider and work towards quitting. Educational Resources: National Heart, Lung, & Blood Bascom http://nhlbi.nih.gov/hbp/index.html The DASH Diet Eating Plan http://www.nhlbi.nih.gov/health/health-topics/ topics/dash/ Academy of Nutrition & DIetetics http://eatright.org National Smoking Cessation Site http://smokefree.gov Blood Pressure < Blood Pressure Essential 128/80 (07/14/2019 No [place], 140/90 hypertension 8:44 AM EST) Kostas Rosario MD Note: Hypertension Care Plan Based on the patient's clinical history and according to JNC 8 guidelines target blood pressure goal is less than 140/90. Based on the patient's last blood pressure of BP: 158/98 mmHg the patient is at above goal. As your provider, it is important that I advise you regarding: your current medications and help you with any challenges you may face taking your medications as directed (ex. instructions, cost, side effects, and interactions). lifestyle changes: exercise, weight reduction, dietary sodium reduction and medication compliance your clinical goals and how you can achieve success: weight reduction, exercise plan and diet improvements medication management: adjusted medications as appropriate patient education/self-management tools provided: Yes To successfully manage my Hypertension I will: monitor my blood pressure daily, understanding that my goal is less than 140/ 90 per my healthcare provider's recommendation. I will schedule an appointment with my provider if consistent abnormal readings greater than 160/100. take medications every day as prescribed by my healthcare provider and if unable to take them I will discuss with my provider. monitor for symptoms of chest pain, chest tightness/pressure, irregular heartbeat, persistent dizziness, radiating arm pain, and neck or jaw pain. If any of these symptoms are noticed I will seek medical attention immediately by calling 911 exercise/walk 30 minutes 6 day(s) per week. If I experience chest pain, chest tightness, or shortness of breath, I will seek medical attention immediately. follow a diet rich in fruits, vegetables, and low-fat dairy products with reduced content of saturated & total fat. I will reduce my sodium intake daily. An example is the DASH diet. To obtain more information please refer to the DASH Eating Plan listed in Educational Resources. record my blood pressure results. [facility] is safe and secure way for you to do this in your medical record online. try to obtain an ideal body weight. My recent weight was Weight: 216 lb ( 97.977 kg). My weight loss goal for my next office visit is 200 lb . limit alcohol consumption. For men two drinks per day and women one drink per day. if currently smoking, will discuss how to quit smoking with my healthcare provider and work towards quitting. Educational Resources: National Heart, Lung, & Blood Bascom http://nhlbi.nih.gov/hbp/index.html The DASH Diet Eating Plan http://www.nhlbi.nih.gov/health/health-topics/ topics/dash/ Academy of Nutrition & DIetetics http://eatright.org National Smoking Cessation Site http://smokefree.gov Blood Pressure < Blood Pressure Essential 128/80 (07/14/2019 No [place], 140/90 hypertension 8:44 AM EST) Kostas Rosario MD Note: Hypertension Care Plan Based on the patient's clinical history and according to JNC 8 guidelines target blood pressure goal is less than 140/90. Based on the patient's last blood pressure of BP: 120/96 mmHg the patient is at above goal. As your provider, it is important that I advise you regarding: your current medications and help you with any challenges you may face taking your medications as directed (ex. instructions, cost, side effects, and interactions). Important lifestyle changes: exercise, weight reduction, dietary sodium reduction and medication compliance your clinical goals and how you can achieve success: weight reduction, exercise plan and diet improvements medication management: adjusted medications as appropriate patient education/self-management tools provided: Current self-management tools adequate To successfully manage my Hypertension I will: monitor my blood pressure daily, understanding that my goal is less than 140/ 90 per my healthcare provider's recommendation. I will schedule an appointment with my provider if consistent abnormal readings greater than 160/100. take medications every day as prescribed by my healthcare provider and if unable to take them I will discuss with my provider. monitor for symptoms of chest pain, chest tightness/pressure, irregular heartbeat, persistent dizziness, radiating arm pain, and neck or jaw pain. If any of these symptoms are noticed I will seek medical attention immediately by calling 911 exercise/walk 30 minutes 7 day(s) per week. If I experience chest pain, chest tightness, or shortness of breath, I will seek medical attention immediately. follow a diet rich in fruits, vegetables, and low-fat dairy products with reduced content of saturated & total fat. I will reduce my sodium intake daily. An example is the DASH diet. To obtain more information please refer to the DASH Eating Plan listed in Educational Resources. record my blood pressure results. [employer] is safe and secure way for you to do this in your medical record online. try to obtain an ideal body weight. My recent weight was Weight: 206 lb ( 93.441 kg). My weight loss goal for my next office visit is <200 pounds . limit alcohol consumption. For men two drinks per day and women one drink per day. if currently smoking, will discuss how to quit smoking with my healthcare provider and work towards quitting. Educational Resources: National Heart, Lung, & Blood Bascom http://nhlbi.nih.gov/hbp/index.html The DASH Diet Eating Plan http://www.nhlbi.nih.gov/health/health-topics/ topics/dash/ Academy of Nutrition & DIetetics http://eatright.org National Smoking Cessation Site http://smokefree.gov Blood Pressure < Blood Pressure 128/80 (07/14/2019 Philly Olguin FNP 140/90 8:44 AM EST) Note: This is an individualized treatment (blood pressure) goal for Savi Rodrigues: Displayed above (on the left) is your goal for blood pressure control. Your most recent blood pressure is also shown above, on the right. You should try to achieve blood pressures that are lower than your goal listed above (on the left). Weight loss vs. 18 mo Lifestyle 7 (07/14/2019 8:44 AM No Philly Watkins FNP max (lbs) >= 10 EST) Note: This is an individualized lifestyle goal for Savi Davila: Your body mass index (BMI) is more than 30. You should lose weight. A reasonable starting goal is to lose 10 pounds. Displayed above is how many pounds you have lost thus far towards your 10 pound weight loss goal. Take all prescribed medications as Self-management No hPilly Watkins FNP directed Note: This is an individualized self-management goal for Savi Davila: Please take all prescribed medications as directed. 1. Do not skip doses. If you cannot afford your medications, talk with your doctor. 2. Use a pill reminder system such as a pill box if needed. Your pharmacist can help you with this. 3. Contact your Pharmacy 5 days before your medication runs out. If you cannot take your medications for any reasons, talk with your doctor. 4. Please bring all of your medication bottles and inhalers (or a list of all your medications/inhalers) with you to every visit. Potential barriers to meeting all of your care plan goals will continue to be addressed on an ongoing basis. documented as of this encounter Results Not on filedocumented in this encounter Visit Diagnoses Diagnosis White coat syndrome with hypertension Binge-eating disorder, moderate Situational anxiety Other anxiety states Benign labile hypertension Generalized anxiety disorder Hypokalemia Hypopotassemia BMI 36.0-36.9,adult Body Mass Index 36.0-36.9, adult documented in this encounter Guarantor Name Account Type Relation to Date of Phone Billing Address Patient Manny Davila Personal/Famil 1965 [id number] (Home) [place], [place] [phone] [id number] (Work) documented as of this encounter
== END 2019-08-04 23:33 | disposition left against medical advice (07) ==
LOC: ED 22:54
DX: R07.89 Other chest pain (principal); Z53.21 Procedure and treatment not carried out due to patient leaving prior to being seen by health care provider
CPT/HCPCS: 93005; 99282

== ENCOUNTER 2019-08-12 20:11 | Emergency (ER) | payer OTHER ==
--- NOTE | 2019-08-12 21:56 | ED ---
Influenza-Like Illness - HPI Summary HPI Summary: The patient is a 54-year-old female presenting to [facility] accompanied by with a chief complaint of influenza-like symptoms for the last three days. She reports that her symptoms began with nausea and diffuse abdominal pain, and then she developed myalgias, headache, nonproductive cough causing chest discomfort, congestion, and decreased appetite. She has been able to tolerate Pedialyte to stay hydrated. She denies any fevers, vomiting, or diarrhea. Symptoms rated 5/10 in severity. She last had 800mg Ibuprofen around 20:00 to some relief. She notes that her grandchildren have been diagnosed with the flu recently, and they have been staying at her house. Past medical history significant for HTN, asthma, GERD. Former smoker, rare EtOH, no substance used. Medications reviewed. Allergies noted. - History of Current Complaint Chief Complaint: EDFluSymptoms Time Seen by Provider: 08/12/19 21:24 Hx Obtained From: Patient Onset/Duration: Gradual Onset, Lasting Days, Still Present Severity: Moderate Associated Signs & Symptoms: Myalgia, Cough, Nasal Congestion, Headache - Allergy/Home Medications Allergies/Adverse Reactions: Allergies Allergy/AdvReac Type Severity Reaction Status Date / Time clarithromycin [From Biaxin] Allergy Rash Verified 08/12/19 21:30 PMH/Surg Hx/FS Hx/Imm Hx Endocrine/Hematology History: Reports: Other Endocrine/Hematological Disorders - Hx Low potassium Denies: Hx Diabetes Cardiovascular History: Reports: Hx Angina - pressure, Hx Hypertension, Other Cardiovascular Problems/Disorders - palpitations Denies: Hx Coronary Artery Disease, Hx Hypercholesterolemia, Hx Myocardial Infarction, Hx Pacemaker/ICD, Hx Valvular Heart Disease Respiratory History: Reports: Hx Asthma Denies: Hx Chronic Obstructive Pulmonary Disease (COPD) GI History: Reports: Hx Gastroesophageal Reflux Disease, Other GI Disorders - Hemorrhoids History: Reports: Other Problems/Disorders - Hx UTI Denies: Hx Dialysis, Hx Renal Disease Musculoskeletal History: Reports: Other Musculoskeletal History - herniated disc in lower back & in neck Sensory History: Reports: Hx Contacts or Glasses Denies: Hx Hearing Aid Opthamlomology History: Reports: Hx Contacts or Glasses Psychiatric History: Reports: Hx Anxiety Denies: Hx Panic Disorder - Surgical History Surgical History: Yes Surgery Procedure, Year, and Place: HYSTERECTOMY, CSECTIONS - Immunization History Date of Tetanus Vaccine: unknown Date of Influenza Vaccine: Fall 2018 Infectious Disease History: Yes Infectious Disease History: Reports: Hx of Known/Suspected MRSA - per pt. Denies: Traveled Outside the [place] in Last 30 Days - Family History Known Family History: Positive: Cardiac Disease - [place], Hypertension, Diabetes, Other - stroke - brother - Social History Alcohol Use: Rare Hx Substance Use: No Substance Use Type: Reports: None Hx Tobacco Use: Yes Smoking Status (MU): Former Smoker Amount Used/How Often: 24 years ago, quit - Additional Comments History Additional Comments: hypertension, asthma, anxiety, GERD, former smoker Review of Systems - ROS Summary Review of Systems Summary: Home Medications Medication Instructions Recorded Confirmed Type Potassium Chlor TAB* [Potassium 40 meq PO BID 05/11/12 08/12/19 History Chlor TAB 20 MEQ*] Lisinopril TAB* [Prinivil TAB 10 20 mg PO BID 08/17/14 08/12/19 History MG*] Triamterene/HCTZ 37.5-25 MG* 1 cap PO DAILY 08/17/14 08/12/19 History [Dyazide CAP*] Metoprolol Succinate XL TAB* 50 mg PO DAILY 05/22/17 08/12/19 History [Toprol XL TAB*] Pantoprazole TAB * [Protonix TAB*] 40 mg PO DAILY #30 tab 09/10/17 08/12/19 Rx ALPRAZolam [Xanax] 1 mg PO DAILY PRN 04/05/18 08/12/19 History Negative: Fever Positive: Cough - nonproductive causing chest discomfort, Other - congestion Positive: Abdominal Pain, Nausea, Other - decreased appetite but able to tolerate liquids. Negative: Vomiting, Diarrhea Positive: Myalgia Positive: Headache All Other Systems Reviewed And Are Negative: Yes Physical Exam - Summary Physical Exam Summary: General: Well-developed, Well-nourished female. Mildly ill-appearing. No acute distress. HEENT: Normocephalic, Atraumatic. Eyes: Conjuctiva normal, PERRL. Oropharynx: Clear, mucous membranes moist, (-) exudates. Neck: Soft, FROM, (-) lymphadenopathy, (-) thyromegaly, (-) JVD. Cardiovascular: Normal sinus rhythm, (-) murmur. Lungs: Clear to auscultation bilaterally (-) wheezes, (-) rales, (-) rhonchi. Abdomen: Soft, non-tender, non-distended, (-) organomegaly, normal bowel sounds. Back: (-) CVA tenderness Extremities: No edema. Skin: Warm, dry, (-) rash. Neuro: Alert and oriented x3, moves all extremities equally. No ataxia. No gait disturbance. No sensory deficit. Normal strength, normal sensation. Psychiatric: Mood normal, affect normal. Triage Information Reviewed: Yes Vital Signs On Initial Exam: Initial Vitals Temp Pulse Resp BP Pulse Ox 97.7 F 83 18 146/91 97 08/12/19 20:12 08/12/19 20:12 08/12/19 20:12 08/12/19 20:12 08/12/19 20:12 Vital Signs Reviewed: Yes Procedures - Sedation Patient Received Moderate/Deep Sedation with Procedure: No Diagnostics - Vital Signs Vital Signs Temp Pulse Resp BP Pulse Ox 08/12/19 21:34 68 123/82 97 08/12/19 20:12 97.7 F 83 18 146/91 97 - Laboratory Result Diagrams: 08/12/19 22:24 08/12/19 22:24 Lab Statement: Any lab studies that have been ordered have been reviewed, and results considered in the medical decision making process. Re-Evaluation - Re-Evaluation First Eval Re-Evaluation Time: 23:50 Comment: I have discussed results with the patient. Discussed symptoms that warrant immediate return to ED. Flu Symptom Course/Dx - Course Course Of Treatment: 54-year-old female presents with signs and symptoms of acute illness. Fevers cough fatigue. Body aches. She states her grandchildren have recently been sick and diagnosed with the flu. Patient is mildly ill-appearing otherwise physical exam demonstrates clear nasal mucusand clear chest.. Workup demonstrates negative flu swab. normal white count. Patient discharged home. Viral syndrome. [id number] medications as needed for symptomatic relief. Plenty of fluids and rest. Follow-up with PCP. Follow up sooner for any worsening symptoms. - Diagnoses Provider Diagnoses: Viral syndrome Discharge ED - Sign-Out/Discharge Documenting (check all that apply): Patient Departure - Patient will be discharged home. - Discharge Plan Condition: Stable Disposition: HOME Patient Education Materials: Viral Syndrome (ED) Referrals: Kostas Baeza MD [Primary Care Provider] - 3 Days Additional Instructions: Please follow up with your primary care physician within three days. Please return to ED for any new or worsening symptoms. - Billing Disposition and Condition Condition: STABLE Disposition: Home - Attestation Statements Document Initiated by Fabian: Yes Documenting Scribe: Nette Bashir Provider For Whom Fabian is Documenting (Include Credential): Dr. Suellen Louie MD Scribe Attestation: Nette Up, scribed for Dr. Suellen Louie MD on 08/13/19 at 0624. Scribe Documentation Reviewed: Yes Provider Attestation: The documentation as recorded by the Nette arenas accurately reflects the service I personally performed and the decisions made by me, Dr. Suellen Louie MD Status of Scribe Document: Viewed
[2019-08-12 22:33] LABS: ABS Basophils 0.1 10^3/ul (0-0.2); ABS Eosinophils 0.3 10^3/ul (0-0.6); ABS Monocytes 0.5 10^3/ul (0-0.8); ABS Neutrophils 3.2 10^3/ul (1.5-7.7); Eosinophil % 4.2 %; Hematocrit 40 % (35-47); Hemoglobin 13.8 g/dL (12.0-16.0); Lymphocyte % 33.5 %; Mean Corpuscular HGB Conc 34 g/dL (31-36); Mean Corpuscular Hemoglobin 31 pg (27-31); Mean Corpuscular Volume 91 fL (80-97); Mean Platelet Volume 9.1 fL (7.4-10.4); Nucleated Red Blood Cells % 0.1; Platelet Count 225 10^3/uL (150-450); Red Blood Count 4.42 10^6 /uL (3.70-4.87); Red Cell Distribution Width 14 % (10-15); White Blood Count 6.1 10^3/uL (3.5-10.8)
[2019-08-12 22:38] LABS: INR 0.98 (0.82-1.09)
[2019-08-12 22:39] LABS: Influenza A Molecular Negative (Negative); Influenza B Molecular Negative (Negative)
[2019-08-12 22:49] LABS: Albumin 3.8 g/dL (3.2-5.2); Albumin/Globulin Ratio 1.4 (1-3); BUN/Creatinine Ratio 11.6 (8-20); EGFR African American 82.9 (>60); EGFR Non-African American 68.5 (>60); Globulin 2.7 g/dL (2-4); Potassium 3.5 mmol/L (3.5-5.0); Total Bilirubin 0.4 mg/dL (0.2-1.0); Total Protein 6.5 g/dL (6.4-8.9)
[2019-08-13 00:30] VITALS: BP 125/96
== END 2019-08-13 00:20 | disposition home or self-care (01) ==
LOC: ED 20:11
DX: B34.9 Viral infection, unspecified (principal); R07.89 Other chest pain; I10 Essential (primary) hypertension; K21.9 Gastro-esophageal reflux disease without esophagitis; F41.9 Anxiety disorder, unspecified; Z79.899 Other long term (current) drug therapy; Z88.1 Allergy status to other antibiotic agents; Z87.891 Personal history of nicotine dependence
CPT/HCPCS: 36415; 80053; 83605; 85025; 85610; 99283